=== PATIENT | female | born 1990 | race Caucasian/White ===

== ENCOUNTER → 2020-04-01 14:50 | Outpatient (BNVA) | payer SELFPAY | PROVIDERS: Visit Provider Nurse Practitioner | DX: S59.901A Unspecified injury of right elbow, initial encounter (principal); X58.XXXA Exposure to other specified factors, initial encounter | CPT/HCPCS: 73080 ==

== ENCOUNTER 2020-11-12 05:45 | Emergency (ER) | payer SELFPAY ==
[2020-11-12 05:51] VITALS: BP 145/78; PULSE 98; RESP 15; TEMP 37.1; O2SAT 100; BMI 27.4
--- NOTE | 2020-11-12 05:57 | ED_ITS ---
HPI - Abdominal Pain General: Chief Complaint: Abdominal Pain Stated Complaint: N/V for 24 hrs. Time Seen by Provider: 11/12/20 05:56 History of Present Illness: HPI narrative: 30-year-old female presents emergency room complaint of abdominal pain for the last 24 hours. She has nausea vomiting and diarrhea. Patient also reports some shortness of breath and cough. She states over the last 24 hours she has not really been able to eat or drink much. She had this once previously was seen in the emergency room, but no significant finding was made. She had not had any episodes since, she reports this was several years ago. She denies any hematochezia melena hematemesis coffee-ground emesis. She is not had any dysuria urgency or frequency. Vomiting is been mostly bilious. MD elicited complaint: abdominal pain Onset (ago): day(s) (1) Pain Consistency: constant Location: Diffuse and Epigastric Quality: cramping Exacerbating factors: eating Relieving factors: nothing Associated Symptoms: Reports anorexia, belching, bloating, GI cramping, nausea, poor appetite and vomiting; Denies change in bowel habits, change in stool character, chills, coffee ground emesis, constipation, diarrhea, dyspepsia, dysuria, excessive flatus, fever(s), heartburn, hematochezia, hematuria, hematemesis, fecal incontinence, loose stools, melena and syncope Related Data: Date of Last Menstrual Period: 11/10/20 Review of Systems Const: Denies: fever(s) or chills ENMT: Denies: throat pain, ear or mastoid pain, nasal discharge or nasal congestion Card: Denies: syncope Resp: Denies: dyspnea, productive cough or non-productive cough GI: Reports: nausea, vomiting, bloating, GI cramping and belching; Denies: hematemesis, coffee ground emesis, heartburn, diarrhea, constipation, excessive flatus, fecal incontinence, change in bowel habits, change in stool character, hematochezia or melena : Denies: dysuria or hematuria Skin/Breast: Denies: rash or pruritus PFS ED PFSH: Social History Smoking and tobacco status: current every day smoker Alcohol intake: current Female Reproductive History: Date of last menstrual period: 11/10/20 Physical Exam Const: COMMON NORMALS: no acute distress GENERAL APPEARANCE: cooperative and comfortable ORIENTATION/CONSCIOUSNESS: Yes awake, Yes oriented to person, Yes oriented to place and Yes oriented to time HENMT: COMMON NORMALS: normocephalic, atraumatic and hearing grossly normal bilaterally HEAD & SCALP: normocephalic and atraumatic Neck/C-Spine: COMMON NORMALS: no JVD Lymph: LYMPHATIC: no lymphadenopathy noted and no lymphedema noted Resp: COMMON NORMALS: normal respiratory effort, No retractions, No use of accessory muscles and clear to auscultation bilaterally AUSCULTATION: clear to auscultation bilaterally Cardio: COMMON NORMALS: no JVD, regular rate, regular rhythm and No murmurs present (Cardio) RATE: regular rate RHYTHM: regular rhythm GI: COMMON NORMALS: Soft to palpation and No hepatosplenomegaly present AUSCULTATION: Yes normoactive bowel sounds PALPATION: Yes Soft to palpation, No Tenderness to palpation present (GI), No Guarding due to palpation present (GI) and Yes No hepatosplenomegaly present Extremity: COMMON NORMALS: normal to inspection, capillary refill normal, no clubbing, cyanosis or edema, no calf tenderness and no pedal edema Neuro: SENSORIUM/ORIENTATION: Yes oriented to person, Yes oriented to place and Yes oriented to time Skin: COMMON NORMALS: no rashes or lesions noted GENERAL SKIN EXAM: no rashes or lesions noted Course Vital Signs: Vital signs: Vital Signs Temperature 98.8 F 11/12/20 05:51 Pulse Rate 73 11/12/20 07:33 Respiratory Rate 16 11/12/20 07:33 Blood Pressure 115/48 11/12/20 07:33 Pulse Oximetry 99 11/12/20 07:33 MDM - Abdominal Pain MDM Narrative: Medical decision making narrative: Have her start on over-the- counter Pepcid. We will also give her hydrocodone and Zofran. We will set her up to get a HIDA scan and to see general surgery. Turn if has further problems. Lab Data: Labs: Lab Results 11/12/20 11/12/20 11/12/20 Range/Units 06:20 06:20 06:20 WBC 14.2 H (4.0-10.0) 10^3/ uL RBC 5.03 (4.1-5.3) 10^6/u L Hgb 15.0 (11.5-15.3) g/dL Hct 44.8 (37.0-47.0) % MCV 89.1 (81-99) fL MCH 29.8 (28.0-34.0) pg MCHC 33.5 (30.0-36.0) g/dL RDW 13.4 (12.1-15.1) % Plt Count 384 (130-400) 10^3/c mm MPV 10.6 H (7.4-10.4) fL Neut % (Auto) 84.0 % Lymph % (Auto) 11.0 % [place] % (Auto) 4.6 % Eos % (Auto) 0.0 % Baso % (Auto) 0.1 % Neut # (Auto) 11.89 H (1.8-7.7) 10^3/u L Lymph # (Auto) 1.6 (0.8-4.8) 10^3/u L [place] # (Auto) 0.7 (0.2-0.9) 10^3/u L Eos # (Auto) 0.0 (0.0-0.8) 10^3/u L Baso # (Auto) 0.0 (0.0-0.1) 10^3/u L Nucleated RBC % (a uto) 0 % Nucleated RBCs # 0.0 /100WBC Sodium 138 (136-145) mmol/L Potassium 3.7 (3.5-5.1) mmol/L Chloride 100 (98-107) mmol/L Carbon Dioxide 23 (22-29) mmol/L Anion Gap 18.7 (5-19) BUN 26 H (6-20) mg/dL Creatinine 0.9 (0.5-0.9) mg/dL GFR Calculation 74.0 L (90-130) mL/min Glucose 135 H (65-115) mg/dL Calculated Osmolal ity 293 (285-295) mOsm/k g Calcium 10.0 (8.5-10.5) mg/dL Total Bilirubin 0.8 (0.15-1.2) mg/dL AST 17 (0-32) U/L ALT 18 (0-33) U/L Alkaline Phosphata se 69 (35-105) IU/L Total Protein 8.3 (6.6-8.7) g/dL Albumin 5.1 (3.5-5.2) g/dL Globulin 3.2 (1.3-4.6) g/dL Lipase 14 (13-60) U/L HCG, Qual Negative (Negative) Urine Color (Yellow) Urine Appearance (CLEAR) Urine pH (5-7) Ur Specific Gravit y (1.005-1.030) Urine Protein (Negative) Urine Glucose (UA) (Normal) Urine Ketones (Negative) Urine Blood (Negative) Urine Nitrate (Negative) Urine Bilirubin (Negative) Urine Urobilinogen (Negative) mg/dL Ur Leukocyte [place] ase (Negative) Urine RBC (0-2) /hpf Urine WBC (0-5) /hpf Ur Squamous Epith Cells (0-5) /hpf Amorphous Sediment /hpf Urine Bacteria (NONE) /hpf Hyaline Casts /lpf Urine Mucus /hpf 05/11/ Range/Units 06:20 WBC (4.0-10.0) 10^3/ uL RBC (4.1-5.3) 10^6/u L Hgb (11.5-15.3) g/dL Hct (37.0-47.0) % MCV (81-99) fL MCH (28.0-34.0) pg MCHC (30.0-36.0) g/dL RDW (12.1-15.1) % Plt Count (130-400) 10^3/c mm MPV (7.4-10.4) fL Neut % (Auto) % Lymph % (Auto) % [place] % (Auto) % Eos % (Auto) % Baso % (Auto) % Neut # (Auto) (1.8-7.7) 10^3/u L Lymph # (Auto) (0.8-4.8) 10^3/u L [place] # (Auto) (0.2-0.9) 10^3/u L Eos # (Auto) (0.0-0.8) 10^3/u L Baso # (Auto) (0.0-0.1) 10^3/u L Nucleated RBC % (a uto) % Nucleated RBCs # /100WBC Sodium (136-145) mmol/L Potassium (3.5-5.1) mmol/L Chloride (98-107) mmol/L Carbon Dioxide (22-29) mmol/L Anion Gap (5-19) BUN (6-20) mg/dL Creatinine (0.5-0.9) mg/dL GFR Calculation (90-130) mL/min Glucose (65-115) mg/dL Calculated Osmolal ity (285-295) mOsm/k g Calcium (8.5-10.5) mg/dL Total Bilirubin (0.15-1.2) mg/dL AST (0-32) U/L ALT (0-33) U/L Alkaline Phosphata se (35-105) IU/L Total Protein (6.6-8.7) g/dL Albumin (3.5-5.2) g/dL Globulin (1.3-4.6) g/dL Lipase (13-60) U/L HCG, Qual (Negative) Urine Color Yellow (Yellow) Urine Appearance Clear (CLEAR) Urine pH 5 (5-7) Ur Specific Gravit y 1.025 (1.005-1.030) Urine Protein 2+ H (Negative) Urine Glucose (UA) Norm (Normal) Urine Ketones 1+ H (Negative) Urine Blood 2+ H (Negative) Urine Nitrate Negative (Negative) Urine Bilirubin 1+ H (Negative) Urine Urobilinogen 1 H (Negative) mg/dL Ur Leukocyte [place] ase Trace H (Negative) Urine RBC 0-4 H (0-2) /hpf Urine WBC 10-15 H (0-5) /hpf Ur Squamous Epith Cells 5-10 H (0-5) /hpf Amorphous Sediment 1+ /hpf Urine Bacteria 1+ H (NONE) /hpf Hyaline Casts 0-4 H /lpf Urine Mucus 3+ /hpf Discharge Plan Discharge Patient Disposition: Home Clinical Impression: Dyspepsia, Biliary colic Condition: Stable Prescriptions: New hydrocodone-acetaminophen 5-325 mg tablet 1 tab PO Q6H PRN (Reason: pain) Qty: 20 RF: 0 Zofran 4 mg tablet 4 mg PO Q6H PRN (Reason: nausea and vomiting) Qty: 15 RF: 0 No Action Compazine 10 mg tablet 10 mg PO Q6H PRN (Reason: nausea and vomiting) Qty: 14 RF: 0 Discharge Orders: Discharge ED (Routine); Ordered 11/12/20 Ordered By: Nathan Cotton Discharge Diet: Clear Liquid Discharge Activity: Increase activity as tolerated Patient Instructions: Abdominal Pain (ED), Opioid Safety Activity Restrictions/Additional Instructions: Liquid diet for 24 to 48 hours. Is as tolerated. Case management will call to set you up for a HIDA scan and referral to general surgery. Coding Level of Care Code ED Machine Oiler for German Fwd Exam Comprehensive
--- NOTE | 2020-11-12 06:05 | XRR_ITS ---
PROCEDURE INFORMATION: Exam: XR Chest Exam date and time: 11/12/2020 6:15 AM Age: 30 years old Clinical indication: Other: No chest complaints; Additional info: Dyspnea/cough TECHNIQUE: Imaging protocol: XR of the chest. Views: 1 view. COMPARISON: CR Chest 1 [place] [id number] 06/08/2017 12:31 PM FINDINGS: Lungs: Calcified granuloma right mid lung Lungs are well aerated without a focal area of consolidation. Pleural spaces: Unremarkable. No pleural effusion. No pneumothorax. Heart/Mediastinum: Unremarkable. No cardiomegaly. Bones/joints: Unremarkable. XR/XR chest 1V portable [id number] IMPRESSION: Lungs are well aerated without a focal area of consolidation.
--- NOTE | 2020-11-12 06:05 | CTR_ITS ---
PROCEDURE INFORMATION: Exam: CT Abdomen And Pelvis With Contrast Exam date and time: 11/12/2020 7:00 AM Age: 30 years old Clinical indication: Abdominal pain; Additional info: Abd pain TECHNIQUE: Imaging protocol: Computed tomography of the abdomen and pelvis with contrast. Radiation optimization: All CT scans at this facility use at least one of these dose optimization techniques: automated exposure control; mA and/or kV adjustment per patient size (includes targeted exams where dose is matched to clinical indication); or iterative reconstruction. Contrast material: OMNI 300; Contrast volume: 95 ml; Contrast route: INTRAVENOUS (IV); COMPARISON: CT abdomen pelvis w con* [id number] 06/07/2017 12:46 AM RADIATION DOSE METRICS: Total DLP (mGy-cm): 1205.96 FINDINGS: Liver: Normal. No mass. Gallbladder and bile ducts: Normal. No calcified stones. No ductal dilation. Pancreas: Normal. No ductal dilation. Spleen: Normal. No splenomegaly. Adrenal glands: Normal. No mass. Kidneys and ureters: Symmetric enhancement of the kidneys. There is a subcentimeter hypodense lesion in the left mid kidney, which is too small to characterize. No hydronephrosis or nephrolithiasis. Stomach and bowel: Unremarkable. No obstruction. No mucosal thickening. Appendix: No evidence of appendicitis. Intraperitoneal space: Unremarkable. No free air. No significant fluid collection. Vasculature: Unremarkable. No abdominal aortic aneurysm. Lymph nodes: Unremarkable. No enlarged lymph nodes. Urinary bladder: Unremarkable as visualized. Reproductive: Unremarkable as visualized. Bones/joints: Tiny unchanged sclerotic lesions are again seen in the hips bilaterally, likely representing bone islands. No acute fracture. Soft tissues: Unremarkable. CT/CT abdomen pelvis w con* [id number] IMPRESSION: No acute intra-abdominal or intrapelvic pathology. COMMENTS: Consistent with the [employer]'s Incidental Findings Committee white paper (J Am Fredy Radiol 2018): Any incidental renal lesion less than 1 cm or classified as too small to characterize, or any incidental cystic renal lesion characterized as simple-appearing, is likely benign. No follow-up imaging is recommended for these lesions per consensus recommendations based on imaging criteria. Radiation Dose CTDIVOL = (mGy): DLP = 1205.96 (mGy-cm)
[2020-11-12 06:17] VITALS: BP 145/78; PULSE 67; RESP 21; O2SAT 100
[2020-11-12] MEDS: sodium chloride 0.9% 1,000 ML 999 ML IV ×2 (06:19→06:52)
[2020-11-12] MEDS: morphine 4 mg/mL SDV 1 mL IVP (06:19)
[2020-11-12] MEDS: ondansetron 2 mg/ML SDV 2 mL 4 MG IVP (06:19)
[2020-11-12 06:27] LABS: Basophils % 0.1 %; Hematocrit 44.8 % (37.0-47.0); Lymphocytes # 1.6 10^3/uL (0.8-4.8); Mean Corpuscular HGB Conc 33.5 g/dL (30.0-36.0); Mean Corpuscular Hemoglobin 29.8 pg (28.0-34.0); Mean Corpuscular Volume 89.1 fL (81-99); Mean Platelet Volume 10.6 fL (7.4-10.4); Monocytes # 0.7 10^3/uL (0.2-0.9); Monocytes % 4.6 %; Neutrophils # 11.89 10^3/uL (1.8-7.7); Nucleated Red Blood Cells % 0 %; Platelet Count 384 10^3/cmm (130-400); Red Blood Count 5.03 10^6/uL (4.1-5.3); Red Cell Distribution Width 13.4 % (12.1-15.1); White Blood Count 14.2 10^3/uL (4.0-10.0)
[2020-11-12 06:31] LABS: Add Urine Microscopic? YES; Bilirubin Urine 1+ (Negative); Blood Urine 2+ (Negative); Glucose Urine UA Norm (Normal); Ketones Urine 1+ (Negative); Leukocyte Esterase Urine Trace (Negative); Nitrate Urine Negative (Negative); Protein Urine 2+ (Negative); Specific Gravity, Urine 1.025 (1.005-1.030); Urine Appearance Clear (CLEAR); Urine Color Yellow (Yellow); Urobilinogen Urine 1 mg/dL (Negative); pH Urine 5 (5-7)
[2020-11-12 06:39] LABS: RBC Urine 0-4 /hpf (0-2)
[2020-11-12 06:40] LABS: Amorphous Sediment Urine 1+ /hpf; Bacteria Urine 1+ /hpf; Hyaline Casts Urine 0-4 /lpf; Mucus Urine 3+ /hpf
[2020-11-12 06:41] LABS: Add Urine Culture? No
[2020-11-12 06:42] LABS: HCG, Serum Qual Negative (Negative)
[2020-11-12 06:46] LABS: Alanine Aminotransferase 18 U/L (0-33); Albumin Level 5.1 g/dL (3.5-5.2); Alkaline Phosphatase 69 IU/L (35-105); Anion Gap 18.7 (5-19); Aspartate Amino Transferase 17 U/L (0-32); Blood Urea Nitrogen 26 mg/dL (6-20); Carbon Dioxide 23 mmol/L (22-29); Chloride 100 mmol/L (98-107); Globulin 3.2 g/dL (1.3-4.6); Glucose 135 mg/dL (65-115); Lipase 14 U/L (13-60); Osmolality Calculated 293 mOsm/kg (285-295); Potassium 3.7 mmol/L (3.5-5.1); Sodium 138 mmol/L (136-145); Total Bilirubin 0.8 mg/dL (0.15-1.2); Total Protein 8.3 g/dL (6.6-8.7)
[2020-11-12] MEDS: iohexol 300 mg/mL 100 mL Btl IV (07:11)
[2020-11-12] MEDS: promethazine 25 mg/mL SDV 1 mL IM (07:17)
[2020-11-12 07:33] VITALS: BP 115/48; PULSE 73; RESP 16; O2SAT 99
--- NOTE | 2020-11-12 08:31 | US_ITS ---
WS: [id number] RIGHT UPPER QUADRANT ULTRASOUND HISTORY: abd pain COMPARISON: 06/08/2017 Liver: 16.6 cm in length. Normal size liver. No bile duct dilatation or mass. Gallbladder: Normally distended gallbladder with no stones or wall thickening. CBD: 0.4 cm Pancreas: Normal size and echogenicity. Right kidney: 12.0 cm in length. Normal size and echogenicity. No hydronephrosis or mass. Aorta and IVC: Unremarkable abdominal aorta and IVC. No ascites. US/US gall bladder [id number] IMPRESSION: Normal RIGHT upper quadrant ultrasound.
--- NOTE | 2020-11-13 10:22 | DCPLANNER ---
Addendum entered by Ara Blackburn 11/21/20 09:33: technology adoption manager contacted general surgery to confirm if an appointment had been scheduled for patient. technology adoption manager was told that centralized scheduling has tried to contact patient, and has not been able to reach patient to schedule an appointment. technology adoption manager called [phone], unable to speak with patient at this time, a voicemail was left for patient to return outsole caser phone call. Original Note: technology adoption manager had message to schedule a follow up appointment for patient with general surgery, and to order an outpatient HIDA scan. technology adoption manager faxed signed order for HIDA scan to centralized scheduling. technology adoption manager will call for appointment information. technology adoption manager emailed patients information to both Lali and Mayra at [facility] General surgery. Patients information will be printed and reviewed. Clinic will call patient with appointment information.
--- NOTE | 2020-11-19 08:12 | DCPLANNER ---
Patient has an out patient HIDA scan scheduled for Sunday, November 22, 2020 at 10:00. manager operations research emailed patients information to Jeff at [facility] General surgery, to let the clinic know when the patient had the appointment for the HIDA scan scheduled.
--- NOTE | 2020-11-22 08:46 | DCPLANNER ---
Patient had a HIDA scan scheduled for 11.22.20 at 10:00 - patient did attend appointment. [facility] has tried to contact patient about scheduling a follow up appointment. Clinic has been unable to schedule an appointment at this time due to not being able to reach patient. order manager has tried multiple times to reach patient about scheduling an appointment and has been unable to reach patient. order manager called phone number [phone], a voicemail was left for patient to return sample case porter phone call. order manager called phone number [phone], patients mother, person that answered stated that she was not who case consultant asked for. order manager called phone number [phone], patients sister, unable to speak with sister at this time, a voicemail was left for the sister to give patient a message to call case consultant.
== END 2020-11-12 10:55 | disposition home or self-care (01) ==
PROVIDERS: Emergency Provider Family Medicine
DX: R10.13 Epigastric pain (principal); K80.50 Calculus of bile duct without cholangitis or cholecystitis without obstruction; F17.210 Nicotine dependence, cigarettes, uncomplicated
CPT/HCPCS: 71045; 74177; 76705; 80053; 81001; 83690; 84703; 85025; 96360; 96361; 96372; 99284; J2270; J2405; J2550; J7030; Q9967

== ENCOUNTER 2020-11-13 07:06 | Emergency (ER) | payer SELFPAY ==
[2020-11-13 07:13] VITALS: BP 128/77; PULSE 67; RESP 20; TEMP 36.8; O2SAT 100; BMI 27.4
--- NOTE | 2020-11-13 07:29 | ED_ITS ---
HPI - Abdominal Pain General: Chief Complaint: Abdominal Pain Stated Complaint: ab pain Time Seen by Provider: 11/13/20 07:13 History of Present Illness: HPI narrative: 30-year-old female returns to the ER with abdominal pain, nausea and vomiting. She was seen yesterday with the same complaints. This had started the previous day. She states that since she left she has had a bunch of nausea and vomiting. She has not had a fever chills. No diarrhea. She points to her left lower quadrant states that is where it has been hurting. Patient did have a unremarkable CT, chest x-ray and right upper quadrant ultrasound. She says that she took the Zofran which helped for a little while but then the nausea and vomiting came back. She states she ate Jell-O and some chicken noodle soup but was not able to keep it down. She denies any hematochezia melena hematemesis coffee-ground emesis. She has not had any dysuria urgency or frequency. MD elicited complaint: abdominal pain Onset (ago): day(s) Pain Consistency: constant Location: LLQ Severity: similar to previous episodes (Similar to yesterday's pain.) Quality: cramping and sharp Radiation: none Migration to: no migration Exacerbating factors: eating and vomiting Relieving factors: nothing Associated Symptoms: Reports nausea and vomiting; Denies chills, coffee ground emesis, constipation, diarrhea, dysuria, fever(s), heartburn, hematuria, hematemesis and loose stools Treatments prior to arrival: other (Zofran only helped a little bit with the nausea.) Related Data: Date of Last Menstrual Period: 11/10/20 Review of Systems Narrative: 30-year-old female returns with nausea, vomiting and abdominal pain. Const: Denies: fever(s), chills or diaphoresis ENMT: Reports: dry mouth; Denies: throat pain or nasal discharge Card: Denies: chest pain Resp: Denies: dyspnea, productive cough, non-productive cough, wheezing, pain on inspiration or hemoptysis GI: Reports: abdominal pain, nausea and vomiting; Denies: hematemesis, coffee ground emesis, heartburn, diarrhea or constipation : Denies: flank pain, difficulty voiding, dysuria or hematuria PFSH ED PFSH: Social History (Reviewed 11/12/20 @ 06:09 by CHRISTY Francois Smoking and tobacco status: current every day smoker Alcohol intake: current Female Reproductive History: Date of last menstrual period: 11/10/20 Physical Exam Const: COMMON NORMALS: average body habitus, patient oriented x3, no limitations, healthy appearing, alert and well nourished EXAM LIMITATIONS: no altered mental status GENERAL APPEARANCE: cooperative, well kempt, well developed and ill appearing NUTRITIONAL APPEARANCE: not cachectic and not obese ORIENTATION/CONSCIOUSNESS: not oriented to person, not oriented to place and not oriented to time HENMT: COMMON NORMALS: normocephalic; oral mucous membranes not moist HEAD & SCALP: normocephalic OTHER: Dry oral mucosa Eye: COMMON NORMALS: Equal, round and reactive pupils present, EOMs intact bilaterally, conjunctivae normal and no scleral icterus GENERAL EYE: appearance normal, both eyes and all related structures CONJUNCTIVA: Yes conjunctivae normal PUPIL: Yes Equal, round and reactive pupils present Neck/C-Spine: COMMON NORMALS: full ROM, no lymphadenopathy, supple, no meningeal signs and no JVD Resp: COMMON NORMALS: normal respiratory effort, No retractions, No use of acc essory muscles and clear to auscultation bilaterally EFFORT & INSPECTION: Yes able to speak in complete sentences, Yes symmetric chest movement and No respiratory distress AUSCULTATION: clear to auscultation bilaterally Cardio: COMMON NORMALS: no JVD, regular rate, regular rhythm, No gallops present (Cardio), No clicks present (Cardio), No murmurs present (Cardio) and No rub (Cardio) RATE: regular rate RHYTHM: regular rhythm GI: COMMON NORMALS: Soft to palpation, No hepatosplenomegaly present and no masses; negative for non-tender (Moderate diffuse tenderness noted, slightly worse than left lower quadrant.) INSPECTION: No abdominal distension AUSCULTATION: Yes normoactive bowel sounds PALPATION: Yes Soft to palpation, Yes No hepatosplenomegaly present and No Rebound tenderness present : COMMON NORMALS: Yes no CVA tenderness BLADDER/KIDNEY EXAM: Yes no CVA tenderness Back/Pelvis: COMMON NORMALS: no CVA tenderness Extremity: COMMON NORMALS: normal to inspection, full ROM, no clubbing, cyanosis or edema and no calf tenderness Neuro: COMMON NORMALS: patient oriented x3, moves all extremities and no focal motor deficits SENSORIUM/ORIENTATION: Yes alert, No oriented to person, No oriented to place and No oriented to time MENINGEAL SIGNS: Yes no meningeal signs Psych: APPEARANCE: Yes well kempt Course Reevaluation(s): Reevaluation #1: Upon entering the room the patient was resting comfortably. She stated she was feeling better. She was not nauseous or vomiting. Time: 08:20 Vital Signs: Vital signs: Vital Signs Temperature 98.2 F 11/13/20 07:13 Pulse Rate 78 11/13/20 11:55 Respiratory Rate 18 11/13/20 11:55 Blood Pressure 122/64 11/13/20 11:55 Pulse Oximetry 99 11/13/20 11:55 MDM - Abdominal Pain Lab Data: Labs: Lab Results 11/13/20 11/13/20 11/13/20 Range/Units 07:35 07:35 07:51 WBC 11.6 H (4.0-10.0) 10^3/ uL RBC 4.49 (4.1-5.3) 10^6/u L Hgb 13.6 (11.5-15.3) g/dL Hct 41.0 (37.0-47.0) % MCV 91.3 (81-99) fL MCH 30.3 (28.0-34.0) pg MCHC 33.2 (30.0-36.0) g/dL RDW 13.3 (12.1-15.1) % Plt Count 288 (130-400) 10^3/c mm MPV 10.5 H (7.4-10.4) fL Neut % (Auto) 79.8 % Lymph % (Auto) 15.1 % [place] % (Auto) 4.4 % Eos % (Auto) 0.0 % Baso % (Auto) 0.3 % Neut # (Auto) 9.27 H (1.8-7.7) 10^3/u L Lymph # (Auto) 1.8 (0.8-4.8) 10^3/u L [place] # (Auto) 0.5 (0.2-0.9) 10^3/u L Eos # (Auto) 0.0 (0.0-0.8) 10^3/u L Baso # (Auto) 0.0 (0.0-0.1) 10^3/u L Nucleated RBC % (a uto) 0 % Nucleated RBCs # 0.0 /100WBC Sodium 139 (136-145) mmol/L Potassium 3.7 (3.5-5.1) mmol/L Chloride 102 (98-107) mmol/L Carbon Dioxide 22 (22-29) mmol/L Anion Gap 18.7 (5-19) BUN 14 (6-20) mg/dL Creatinine 0.6 (0.5-0.9) mg/dL GFR Calculation 118.2 (90-130) mL/min Glucose 108 (65-115) mg/dL Calculated Osmolal ity 289 (285-295) mOsm/k g Calcium 9.0 (8.5-10.5) mg/dL Magnesium 2.1 (1.7-2.3) mg/dL Total Bilirubin 0.9 (0.15-1.2) mg/dL AST 18 (0-32) U/L ALT 21 (0-33) U/L Alkaline Phosphata se 65 (35-105) IU/L Total Protein 7.5 (6.6-8.7) g/dL Albumin 4.8 (3.5-5.2) g/dL Globulin 2.7 (1.3-4.6) g/dL Lipase 14 (13-60) U/L Urine Color Yellow (Yellow) Urine Appearance Clear (CLEAR) Urine pH 6.5 (5-7) Ur Specific Gravit y 1.020 (1.005-1.030) Urine Protein Trace (Negative) Urine Glucose (UA) Norm (Normal) Urine Ketones 2+ H (Negative) Urine Blood 2+ H (Negative) Urine Nitrate Negative (Negative) Urine Bilirubin Neg (Negative) Urine Urobilinogen 1 H (Negative) mg/dL Ur Leukocyte [place] ase Negative (Negative) Urine RBC 0-4 H (0-2) /hpf Urine WBC None (0-5) /hpf Ur Squamous Epith Cells 0-4 H (0-5) /hpf Amorphous Sediment Not Reportable Urine Bacteria 1+ H (NONE) /hpf Urine Mucus 1+ /hpf Discharge Plan Discharge Patient Disposition: Home Clinical Impression: Biliary colic, Dyspepsia Nausea & vomiting Qualifiers: Vomiting type: bilious vomiting Qualified Code(s): R11.14 - Bilious vomiting Abdominal pain Qualifiers: Abdominal location: unspecified location Qualified Code(s): R10.9 - Unspecified abdominal pain Condition: Stable Prescriptions: New Compazine 10 mg tablet 10 mg PO Q6H PRN (Reason: nausea and vomiting) Qty: 14 RF: 0 No Action hydrocodone-acetaminophen 5-325 mg tablet 1 tab PO Q6H PRN (Reason: pain) Qty: 20 RF: 0 Zofran 4 mg tablet 4 mg PO Q6H PRN (Reason: nausea and vomiting) Qty: 15 RF: 0 Discharge Orders: Discharge ED (Routine); Ordered 11/13/20 Ordered By: Miles Driscoll Discharge Diet: Clear Liquid Discharge Activity: Limit activity as instructed Patient Instructions: Abdominal Pain (ED), Opioid Safety Activity Restrictions/Additional Instructions: Increase noncaffeine/nonalcoholic fluids. Please keep a food diary. Follow-up for the HIDA/gallbladder test then with the surgeon once scheduled. Coding Level of Care Code ED Slime Plant Operator for German Fwd Exam Comprehensive
[2020-11-13] MEDS: sodium chloride 0.9% 1,000 ML 999 ML IV (07:45)
[2020-11-13] MEDS: metoclopramide 5 mg/mL SDV 2 mL 10 MG IVP ×2 (07:47→09:26)
[2020-11-13 07:52] LABS: Basophils % 0.3 %; Hemoglobin 13.6 g/dL (11.5-15.3); Lymphocytes # 1.8 10^3/uL (0.8-4.8); Lymphocytes % 15.1 %; Mean Corpuscular HGB Conc 33.2 g/dL (30.0-36.0); Mean Corpuscular Hemoglobin 30.3 pg (28.0-34.0); Mean Corpuscular Volume 91.3 fL (81-99); Mean Platelet Volume 10.5 fL (7.4-10.4); Monocytes # 0.5 10^3/uL (0.2-0.9); Monocytes % 4.4 %; Neutrophils # 9.27 10^3/uL (1.8-7.7); Neutrophils % 79.8 %; Nucleated Red Blood Cells % 0 %; Platelet Count 288 10^3/cmm (130-400); Red Blood Count 4.49 10^6/uL (4.1-5.3); Red Cell Distribution Width 13.3 % (12.1-15.1); White Blood Count 11.6 10^3/uL (4.0-10.0)
[2020-11-13 08:16] LABS: Alanine Aminotransferase 21 U/L (0-33); Albumin Level 4.8 g/dL (3.5-5.2); Alkaline Phosphatase 65 IU/L (35-105); Anion Gap 18.7 (5-19); Aspartate Amino Transferase 18 U/L (0-32); Blood Urea Nitrogen 14 mg/dL (6-20); Carbon Dioxide 22 mmol/L (22-29); Chloride 102 mmol/L (98-107); Globulin 2.7 g/dL (1.3-4.6); Glomerular Filtration Rate 118.2 mL/min (90-130); Glucose 108 mg/dL (65-115); Lipase 14 U/L (13-60); Magnesium 2.1 mg/dL (1.7-2.3); Osmolality Calculated 289 mOsm/kg (285-295); Potassium 3.7 mmol/L (3.5-5.1); Sodium 139 mmol/L (136-145); Total Bilirubin 0.9 mg/dL (0.15-1.2); Total Protein 7.5 g/dL (6.6-8.7)
[2020-11-13 08:31] LABS: Add Urine Microscopic? YES; Bilirubin Urine Neg (Negative); Blood Urine 2+ (Negative); Glucose Urine UA Norm (Normal); Ketones Urine 2+ (Negative); Leukocyte Esterase Urine Negative (Negative); Nitrate Urine Negative (Negative); Protein Urine Trace (Negative); Urine Appearance Clear (CLEAR); Urine Color Yellow (Yellow); Urobilinogen Urine 1 mg/dL (Negative); pH Urine 6.5 (5-7)
[2020-11-13 08:48] LABS: RBC Urine 0-4 /hpf (0-2)
[2020-11-13 08:49] LABS: Add Urine Culture? No; Bacteria Urine 1+ /hpf; Mucus Urine 1+ /hpf; Squamous Epithelial Cell Urine 0-4 /hpf (0-5)
[2020-11-13 09:25] VITALS: RESP 18
[2020-11-13] MEDS: morphine 4 mg/mL SDV 1 mL IVP (09:25)
[2020-11-13 11:55] VITALS: BP 122/64; PULSE 78; RESP 18; O2SAT 99
== END 2020-11-13 10:15 | disposition home or self-care (01) ==
PROVIDERS: Emergency Provider Emergency Medicine
DX: R10.13 Epigastric pain (principal); R11.14 Bilious vomiting; R10.9 Unspecified abdominal pain; K80.50 Calculus of bile duct without cholangitis or cholecystitis without obstruction; F17.210 Nicotine dependence, cigarettes, uncomplicated
CPT/HCPCS: 80053; 81001; 83690; 83735; 85025; 96361; 96374; 96375; 96376; 99284; J2270; J2765; J7030

== ENCOUNTER 2020-11-22 08:37 | Outpatient (CLI) | payer SELFPAY ==
--- NOTE | 2020-11-22 08:42 | NM_ITS ---
WS: [id number] NUCLEAR MEDICINE HIDA SCAN CLINICAL INFORMATION: ABD PAIN TECHNIQUE: Following intravenous administration of 8.3 mCi of technetium 99m mebrofenin, images of th e abdomen were obtained over the course of 60 minutes. Next, gallbladder ejection fraction was determ ined by obtaining preprandial and one-hour postprandial images of the gallbladder following oral florencio stion of Ensure. COMPARISON: November 12, 2020 FINDINGS: Normal hepatic uptake at 5 minutes. Gallbladder visualized at 15 minutes. No evidence of acute cholec ystitis. Normal common bile duct and small bowel activity. Normal hepatic excretion. Gallbladder ejection fraction 72% within normal limits. No evidence of washroom attendant vimal cholecystitis. NM/NM hepatobiliary w phar* [id number] IMPRESSION: 1. No evidence of acute or chronic cholecystitis. 2. Gallbladder ejection fraction 72% within normal limits.
[2020-11-22 09:22] LABS: HCG Qualitative Urine. Negative (Negative)
== END 2020-11-22 08:38 | disposition home or self-care (01) ==
LOC: RAD 08:41
PROVIDERS: Visit Provider Emergency Medicine
DX: R10.9 Unspecified abdominal pain (principal)
CPT/HCPCS: 78227; 81025; A9537

== ENCOUNTER 2021-03-11 20:01 | Emergency (ER) | payer SELFPAY ==
[2021-03-11 20:16] VITALS: BP 171/80; PULSE 58; RESP 22; TEMP 36.7; O2SAT 100; BMI 24.9
[2021-03-11 20:39] LABS: Basophils % 0.1 %; Hematocrit 43.9 % (37.0-47.0); Hemoglobin 14.1 g/dL (11.5-15.3); Lymphocytes # 0.9 10^3/uL (0.8-4.8); Lymphocytes % 6.2 %; Mean Corpuscular HGB Conc 32.1 g/dL (30.0-36.0); Mean Corpuscular Volume 93.4 fl (81-99); Mean Platelet Volume 10.8 fL (7.4-10.4); Monocytes # 0.3 10^3/uL (0.2-0.9); Monocytes % 1.9 %; Neutrophils # 12.83 10^3/uL (1.8-7.7); Neutrophils % 91.4 %; Nucleated Red Blood Cells % 0 %; Platelet Count 311 10^3/cmm (130-400); Red Cell Distribution Width 12.3 % (12.1-15.1)
[2021-03-11 21:19] LABS: Alanine Aminotransferase 14 U/L (0-33); Albumin Level 4.7 g/dL (3.5-5.2); Alkaline Phosphatase 62 IU/L (35-105); Anion Gap 21.4 (5-19); Aspartate Amino Transferase 14 U/L (0-32); Blood Urea Nitrogen 17 mg/dL (6-20); Calcium 9.6 mg/dL (8.5-10.5); Carbon Dioxide 19 mmol/L (22-29); Chloride 106 mmol/L (98-107); Globulin 2.8 g/dL (1.3-4.6); Glomerular Filtration Rate 98.9 mL/min (90-130); Glucose 144 mg/dL (65-115); Lipase 15 U/L (13-60); Osmolality Calculated 298 mOsm/kg (285-295); Potassium 4.4 mmol/L (3.5-5.1); Sodium 142 mmol/L (136-145); Total Bilirubin 0.5 mg/dL (0.15-1.2); Total Protein 7.5 g/dL (6.6-8.7)
[2021-03-11] MEDS: sodium chloride 0.9% 1,000 ML 999 ML IV (22:57)
--- NOTE | 2021-03-11 22:57 | W.ED.NAVMDI ---
HPI - Nausea/Vomiting/Diarrhea General: Chief complaint: Nausea/Vomiting/Diarrhea Stated complaint: Abd Pain\Vomiting Time Seen by Provider: 03/11/21 22:46 Source: patient Limitations: no limitations History of Present Illness: HPI Narrative: 30-year-old female states that since this morning she has had severe nausea vomiting along with lower abdominal pain. States she has vomited like 30 times today. States the pain in her lower abdomen sharp in nature. She denies any worsening improving factors. States she had a similar episode 2 months ago. She denies any fever. States she is currently on her menstruation. Associated nausea: Yes Associated symtoms: Reports nausea; Denies chest pain, dysuria or headache(s) Review of Systems Const: Denies: fever(s), chills, body aches or change in appetite Eyes: Denies: blurry vision or eye discomfort ENMT: Denies: throat pain or dental pain Card: Denies: chest pain Resp: Denies: dyspnea GI: Reports: abdominal pain, nausea and vomiting : Denies: dysuria Musc: Denies: neck pain or back pain Skin/Breast: Denies: rash Neuro: Denies: headache(s) Psych: Denies: depression Jarrod/Lymph: Denies: easy bruising All/Imm: Denies: urticaria PFSH ED PFSH: Social History Smoking and tobacco status: current every day smoker Alcohol intake: current Female Reproductive History: Date of last menstrual period: 03/11/21 Physical Exam Const: COMMON NORMALS: no acute distress, patient oriented x3 and healthy appearing HENMT: COMMON NORMALS: normocephalic and atraumatic HEAD & SCALP: normocephalic and atraumatic Eye: COMMON NORMALS: Equal, round and reactive pupils present and EOMs intact bilaterally PUPIL: Yes Equal, round and reactive pupils present Neck/C-Spine: COMMON NORMALS: full ROM and supple Chest: COMMONS NORMALS: normal inspection of the chest and normal palpation of entire chest wall Resp: COMMON NORMALS: normal respiratory effort, No retractions, No use of accessory muscles and clear to auscultation bilaterally AUSCULTATION: clear to auscultation bilaterally Cardio: COMMON NORMALS: regular rate, regular rhythm and No murmurs present (Cardio) RATE: regular rate RHYTHM: regular rhythm GI: COMMON NORMALS: Normal to inspection, nondistended, normoactive bowel sounds present, Soft to palpation and no masses PALPATION: Yes Soft to palpation and Yes Tenderness to palpation present (GI) (lower abd) Extremity: COMMON NORMALS: normal to inspection and full ROM Neuro: COMMON NORMALS: patient oriented x3, moves all extremities and no focal motor deficits Psych: COMMON NORMALS: mental status grossly normal, Normal thought process present and cooperative THOUGHT PROCESS: Normal thought process present Skin: COMMON NORMALS: no rashes or lesions noted and no wounds GENERAL SKIN EXAM: no rashes or lesions noted Course Vital Signs: Vital signs: Vital Signs Temperature 98.1 F 03/11/21 20:16 Pulse Rate 84 03/12/21 01:53 Respiratory Rate 14 03/12/21 01:53 Blood Pressure 120/57 03/12/21 01:53 Pulse Oximetry 98 03/12/21 01:53 MDM - Nausea/Vomiting/Diarrhea MDM Narrative: Medical decision making narrative: Patient presents here with vomiting likely viral in origin. She feels much improved after Reglan and IV fluids. CT scan showed no acute findings set for colitis. She is nontender here I do not believe she needs any antibiotics. We will place her on Zofran and Reglan for home and she is to follow-up with PCP and return if worsening. She understands and agrees to plan. Lab Data: Labs: Lab Results 03/11/21 03/11/21 03/11/21 Range/Units 20:30 20:30 23:23 WBC 14.0 H (4.0-10.0) 10^3/ uL RBC 4.70 (4.1-5.3) 10^6/u L Hgb 14.1 (11.5-15.3) g/dL Hct 43.9 (37.0-47.0) % MCV 93.4 (81-99) fl MCH 30.0 (28.0-34.0) pg MCHC 32.1 (30.0-36.0) g/dL RDW 12.3 (12.1-15.1) % Plt Count 311 (130-400) 10^3/c mm MPV 10.8 H (7.4-10.4) fL Neut % (Auto) 91.4 % Lymph % (Auto) 6.2 % [place] % (Auto) 1.9 % Eos % (Auto) 0.0 % Baso % (Auto) 0.1 % Neut # (Auto) 12.83 H (1.8-7.7) 10^3/u L Lymph # (Auto) 0.9 (0.8-4.8) 10^3/u L [place] # (Auto) 0.3 (0.2-0.9) 10^3/u L Eos # (Auto) 0.0 (0.0-0.8) 10^3/u L Baso # (Auto) 0.0 (0.0-0.1) 10^3/u L Nucleated RBC % (a uto) 0 % Nucleated RBCs # 0.0 /100WBC Sodium 142 (136-145) mmol/L Potassium 4.4 (3.5-5.1) mmol/L Chloride 106 (98-107) mmol/L Carbon Dioxide 19 L (22-29) mmol/L Anion Gap 21.4 H (5-19) BUN 17 (6-20) mg/dL Creatinine 0.7 (0.5-0.9) mg/dL GFR Calculation 98.9 (90-130) mL/min Glucose 144 H (65-115) mg/dL Calculated Osmolal ity 298 H (285-295) mOsm/k g Calcium 9.6 (8.5-10.5) mg/dL Total Bilirubin 0.5 (0.15-1.2) mg/dL AST 14 (0-32) U/L ALT 14 (0-33) U/L Alkaline Phosphata se 62 (35-105) IU/L Total Protein 7.5 (6.6-8.7) g/dL Albumin 4.7 (3.5-5.2) g/dL Globulin 2.8 (1.3-4.6) g/dL Lipase 15 (13-60) U/L HCG, Qual Negative (Negative) Urine Color (Yellow) Urine Appearance (CLEAR) Urine pH (5-7) Ur Specific Gravit y (1.005-1.030) Urine Protein (Negative) Urine Glucose (UA) (Normal) Urine Ketones (Negative) Urine Blood (Negative) Urine Nitrate (Negative) Urine Bilirubin (Negative) Urine Urobilinogen (Negative) mg/dL Ur Leukocyte [place] ase (Negative) Urine RBC (0-2) /hpf Urine WBC (0-5) /hpf Ur Squamous Epith Cells (0-5) /hpf Amorphous Sediment /hpf Urine Bacteria (NONE) /hpf 03/12/21 Range/Units 00:20 WBC (4.0-10.0) 10^3/ uL RBC (4.1-5.3) 10^6/u L Hgb (11.5-15.3) g/dL Hct (37.0-47.0) % MCV (81-99) fl MCH (28.0-34.0) pg MCHC (30.0-36.0) g/dL RDW (12.1-15.1) % Plt Count (130-400) 10^3/c mm MPV (7.4-10.4) fL Neut % (Auto) % Lymph % (Auto) % [place] % (Auto) % Eos % (Auto) % Baso % (Auto) % Neut # (Auto) (1.8-7.7) 10^3/u L Lymph # (Auto) (0.8-4.8) 10^3/u L [place] # (Auto) (0.2-0.9) 10^3/u L Eos # (Auto) (0.0-0.8) 10^3/u L Baso # (Auto) (0.0-0.1) 10^3/u L Nucleated RBC % (a uto) % Nucleated RBCs # /100WBC Sodium (136-145) mmol/L Potassium (3.5-5.1) mmol/L Chloride (98-107) mmol/L Carbon Dioxide (22-29) mmol/L Anion Gap (5-19) BUN (6-20) mg/dL Creatinine (0.5-0.9) mg/dL GFR Calculation (90-130) mL/min Glucose (65-115) mg/dL Calculated Osmolal ity (285-295) mOsm/k g Calcium (8.5-10.5) mg/dL Total Bilirubin (0.15-1.2) mg/dL AST (0-32) U/L ALT (0-33) U/L Alkaline Phosphata se (35-105) IU/L Total Protein (6.6-8.7) g/dL Albumin (3.5-5.2) g/dL Globulin (1.3-4.6) g/dL Lipase (13-60) U/L HCG, Qual (Negative) Urine Color Dark yellow (Yellow) Urine Appearance Hazy A (CLEAR) Urine pH 5 (5-7) Ur Specific Gravit y 1.020 (1.005-1.030) Urine Protein 1+ H (Negative) Urine Glucose (UA) Norm (Normal) Urine Ketones 2+ H (Negative) Urine Blood 3+ H (Negative) Urine Nitrate Negative (Negative) Urine Bilirubin Neg (Negative) Urine Urobilinogen 1 H (Negative) mg/dL Ur Leukocyte [place] ase Negative (Negative) Urine RBC 0-4 H (0-2) /hpf Urine WBC 0-4 H (0-5) /hpf Ur Squamous Epith Cells 0-4 H (0-5) /hpf Amorphous Sediment 4+ /hpf Urine Bacteria Trace (NONE) /hpf Imaging Data^: CT Abd/Pel: Attestation: I personally reviewed and interpreted this imaging study as follows: Radiologist's impression: [address] [address] [address] Scan Report Signed Patient: Karuna Craig Unit #: [id number] : 1990 Age/Sex: 30 / F ADM Date: 03/11/21 Loc: ER Room/Bed: Attending Dr: Ordering Provider/Ordering MD: León Masters MD Date of Service: 03/11/21 Procedure(s): CT abdomen pelvis w con* [id number] Accession Number(s): [id number] Report Number: [id number] PROCEDURE INFORMATION: Exam: CT Abdomen And Pelvis With Contrast Exam date and time: 03/11/2021 10:56 PM Age: 30 years old Clinical indication: Nausea and vomiting; Abdominal pain; Patient HX: Generalized abd pain with n/v. TECHNIQUE: Imaging protocol: Computed tomography of the abdomen and pelvis with contrast. Radiation optimization: All CT scans at this facility use at least one of these dose optimization techniques: automated exposure control; mA and/or kV adjustment per patient size (includes targeted exams where dose is matched to clinical indication); or iterative reconstruction. Contrast material: OMNI 300; Contrast volume: 95 ml; Contrast route: INTRAVENOUS (IV); COMPARISON: CT abdomen pelvis w con* [id number] 11/12/2020 7:06 AM RADIATION DOSE METRICS: Total DLP (mGy-cm): 1037.71 FINDINGS: Liver: Normal. No mass. Gallbladder and bile ducts: Normal. No calcified stones. No ductal dilation. Pancreas: Normal. No ductal dilation. Spleen: Normal. No splenomegaly. Adrenal glands: Normal. No mass. Kidneys and ureters: Normal. No hydronephrosis. Stomach and bowel: Mild generalized wall thickening and edema predominantly right colon and transverse colon more pronounced than prior imaging. Negative for bowel obstruction. Negative for bowel perforation. No focal bowel wall mass. Appendix: No evidence of appendicitis. Intraperitoneal space: Unremarkable. No free air. No significant fluid collection. Vasculature: Mesenteric vasculature is patent and unremarkable. Lymph nodes: Unremarkable. No enlarged lymph nodes. Urinary bladder: Unremarkable as visualized. Reproductive: Unremarkable as visualized. Bones/joints: Unremarkable. No acute fracture. Soft tissues: Unremarkable. CT/CT abdomen pelvis w con* [id number] IMPRESSION: Nonspecific colitis pattern is suspected Radiation Dose CTDIVOL = (mGy): DLP = 1037.71 (mGy-cm) Dictated By: Rafi Singh Signed By: Rafi Singh Signed Date/Time: 03/12/21117 DD/ 6 Discharge Plan Discharge Patient Disposition: Home Clinical Impression: Vomiting Qualifiers: Vomiting type: unspecified Vomiting Intractability: non-intractable Nausea presence: with nausea Qualified Code(s): R11.2 - Nausea with vomiting, unspecified Condition: Stable Prescriptions: New ondansetron 4 mg tablet,disintegrating 4 mg PO Q6H PRN (Reason: nausea and vomiting) Qty: 14 RF: 0 Reglan 10 mg tablet 10 mg PO Q6H PRN (Reason: nausea and vomiting) Qty: 20 RF: 0 Discharge Orders: Discharge ED (Routine); Ordered 03/12/21 Ordered By: León Masters Discharge Diet: Advance as tolerated Discharge Activity: Resume usual activity Patient Instructions: Acute Nausea and Vomiting (ED) Coding Level of Care Code ED Service Department Manager for g Fwd Exam Comprehensive
[2021-03-11] MEDS: metoclopramide 5 mg/mL SDV 2 mL 10 MG IVP (23:01)
[2021-03-11] MEDS: diphenhydrAMINE 50 mg/mL SDV 1mL IVP (23:01)
[2021-03-11 23:06] VITALS: RESP 24
[2021-03-11] MEDS: morphine 4 mg/mL SDV 1 mL IVP (23:06)
[2021-03-11 23:41] LABS: HCG, Serum Qual Negative (Negative)
[2021-03-12] MEDS: iohexol 300 mg/mL 100 mL Btl IV (00:06)
[2021-03-12] MEDS: sodium chloride 0.9% 1,000 ML 999 ML IV (00:38)
[2021-03-12 00:58] LABS: Add Urine Culture? No; Add Urine Microscopic? YES; Amorphous Sediment Urine 4+ /hpf; Bacteria Urine TRACE /hpf; Bilirubin Urine Neg (Negative); Blood Urine 3+ (Negative); Glucose Urine UA Norm (Normal); Ketones Urine 2+ (Negative); Leukocyte Esterase Urine Negative (Negative); Nitrate Urine Negative (Negative); Protein Urine 1+ (Negative); RBC Urine 0-4 /hpf (0-2); Squamous Epithelial Cell Urine 0-4 /hpf (0-5); Urine Appearance Hazy (CLEAR); Urine Color Dark Yellow (Yellow); Urobilinogen Urine 1 mg/dL (Negative); WBC Urine 0-4 /hpf (0-5); pH Urine 5 (5-7)
[2021-03-12] MEDS: ondansetron 4 MG Tablet PO (01:48)
[2021-03-12 01:53] VITALS: BP 120/57; PULSE 84; RESP 14; O2SAT 98
== END 2021-03-12 01:54 | disposition home or self-care (01) ==
PROVIDERS: Emergency Provider Emergency Medicine
DX: R11.2 Nausea with vomiting, unspecified (principal); F17.210 Nicotine dependence, cigarettes, uncomplicated
CPT/HCPCS: 36415; 74177; 80053; 81001; 83690; 84703; 85025; 96361; 96374; 96375; 99284; J1200; J2270; J2765; J7030; Q0162; Q9967

== ENCOUNTER 2021-03-12 12:26 | Emergency (ER) | payer SELFPAY ==
[2021-03-12] VITALS (7 sets, daily range): BP systolic 113–182; BP diastolic 66–98; PULSE 55–92; RESP 16–23; TEMP 36.9; O2SAT 97–100; BMI 24.9
--- NOTE | 2021-03-12 13:34 | ED_ITS ---
HPI - Abdominal Pain General: Chief Complaint: Nausea/Vomiting/Diarrhea Stated Complaint: Vomiting, stomach pain, body aches Time Seen by Provider: 03/12/21 13:25 Source: patient Mode of arrival: ambulatory Limitations: no limitations History of Present Illness: HPI narrative: Patient is a 30-year-old female presents to ED today with a complaint of severe abdominal pain and repetitive episodes of nausea and vomiting. Patient states symptoms of been present over the past 48 hours. She was seen here yesterday in the ED for evaluation and her CT at that time showed possible colitis. She was discharged home with antiemetics. Patient states when she got home symptoms seem to progressively worsen. She is still not able to hold down anything and has continued to have episodes of vomiting. No hematemesis or coffee-ground emesis. She is reporting normal bowel movements. She is currently on her menstrual cycle. Patient reports occasional marijuana use stating she uses 2-3 times weekly and has over the past 10 years. No fevers. MD elicited complaint: abdominal pain Onset (ago): day(s) Pain Consistency: constant Location: Diffuse Severity: severe Quality: cramping and sharp Radiation: none Migration to: no migration Exacerbating factors: eating Relieving factors: nothing Associated Symptoms: Reports chills, nausea and vomiting; Denies change in bowel habits, change in stool character, dysuria, fever(s), hematochezia, hematemesis and melena Related Data: Date of Last Menstrual Period: 03/11/21 Patient : No Review of Systems Const: Reports: chills and change in appetite (doesn't want to eat secondary to abdominal pain/nausea); Denies: fever(s), body aches, change in weight, fatigue or malaise ENMT: Denies: throat pain or odynophagia Card: Denies: chest pain Resp: Denies: dyspnea GI: Reports: abdominal pain, nausea and vomiting; Denies: hematemesis, change in bowel habits, pain on defecation, change in stool character, hematochezia or melena : Denies: flank pain or dysuria Musc: Denies: neck pain, back pain, extremity pain or joint pain Skin/Breast: Denies: rash Neuro: Denies: headache(s), numbness in extremities, weakness in extremities, sensory changes or dizziness [facility] ED PFSH: Social History Smoking and tobacco status: current every day smoker Alcohol intake: current Female Reproductive History: Date of last menstrual period: 03/11/21 Physical Exam Const: COMMON NORMALS: average body habitus, patient oriented x3, no limitations, healthy appearing, alert and well nourished GENERAL APPEARANCE: cooperative, in distress (secondary to discomfort) and anxious ORIENTATION/CONSCIOUSNESS: Yes awake, Yes oriented to person, Yes oriented to place and Yes oriented to time HENMT: COMMON NORMALS: normocephalic and atraumatic HEAD & SCALP: normocephalic and atraumatic Resp: COMMON NORMALS: normal respiratory effort and clear to auscultation bilaterally AUSCULTATION: clear to auscultation bilaterally Cardio: COMMON NORMALS: regular rate and regular rhythm RATE: regular rate RHYTHM: regular rhythm GI: COMMON NORMALS: Normal to inspection, nondistended, normoactive bowel sounds present, No hepatosplenomegaly present and no masses INSPECTION: Yes normal to inspection AUSCULTATION: Yes normoactive bowel sounds PALPATION: Yes Tenderness to palpation present (GI) (epigastric and throughout lower abdomen), Yes Guarding due to palpation present (GI), Yes Rigid due to palpation and Yes No hepatosplenomegaly present : COMMON NORMALS: Yes no CVA tenderness BLADDER/KIDNEY EXAM: Yes no CVA tenderness Back/Pelvis: COMMON NORMALS: no CVA tenderness Extremity: COMMON NORMALS: normal to inspection Neuro: CORA COMA SCALE: document GCS findings [place] coma scale eye opening: Spontaneous [place] coma scale verbal response: Orientated Cora coma scale motor response: Obey commands [place] coma scale total score: 15 COMMON NORMALS: patient oriented x3, CN's II-XII intact bilaterally, moves all extremities, no focal motor deficits, no sensory deficits noted and gait normal SENSORIUM/ORIENTATION: Yes alert, Yes oriented to person, Yes oriented to place and Yes oriented to time Skin: COMMON NORMALS: no rashes or lesions noted GENERAL SKIN EXAM: no rashes or lesions noted TRAUMA: no lacerations or abrasions Course Vital Signs: Vital signs: Vital Signs Temperature 98.4 F 03/12/21 13:00 Pulse Rate 58 L 03/12/21 15:00 Respiratory Rate 17 03/12/21 15:00 Blood Pressure 127/84 03/12/21 15:00 Pulse Oximetry 99 03/12/21 15:00 MDM - Abdominal Pain MDM Narrative: Medical decision making narrative: Patient feels better after medications given here. She was able to hold down a small amount of food/drink. Vital signs are stable. Labs are non-concerning. UA with hematuria but patient currently on menstrual cycle. Repeat CT imaging does not show any significant changes. We will go ahead and place her on Cipro/Flagyl for colitis. Other differential diagnoses include cyclic vomiting syndrome/hyperemesis cannabis syndrome. Recommend bland liquid diet advance as tolerated. Return to ED precautions given. Lab Data: Labs: Lab Results 03/12/21 03/12/21 03/12/21 Range/Units 13:39 13:39 13:39 WBC 13.6 H (4.0-10.0) 10^3/ uL RBC 4.60 (4.1-5.3) 10^6/u L Hgb 14.2 (11.5-15.3) g/dL Hct 43.0 (37.0-47.0) % MCV 93.5 (81-99) fl MCH 30.9 (28.0-34.0) pg MCHC 33.0 (30.0-36.0) g/dL RDW 12.7 (12.1-15.1) % Plt Count 280 (130-400) 10^3/c mm MPV 11.3 H (7.4-10.4) fL Neut % (Auto) 86.7 % Lymph % (Auto) 8.3 % [place] % (Auto) 4.5 % Eos % (Auto) 0.0 % Baso % (Auto) 0.1 % Neut # (Auto) 11.74 H (1.8-7.7) 10^3/u L Lymph # (Auto) 1.1 (0.8-4.8) 10^3/u L [place] # (Auto) 0.6 (0.2-0.9) 10^3/u L Eos # (Auto) 0.0 (0.0-0.8) 10^3/u L Baso # (Auto) 0.0 (0.0-0.1) 10^3/u L Nucleated RBC % (a uto) 0 % Nucleated RBCs # 0.0 /100WBC Sodium 138 (136-145) mmol/L Potassium 3.8 (3.5-5.1) mmol/L Chloride 102 (98-107) mmol/L Carbon Dioxide 23 (22-29) mmol/L Anion Gap 16.8 (5-19) BUN 13 (6-20) mg/dL Creatinine 0.5 (0.5-0.9) mg/dL GFR Calculation 145.9 H (90-130) mL/min Glucose 111 (65-115) mg/dL Calculated Osmolal ity 287 (285-295) mOsm/k g Lactic Acid (0.5-2.2) mmol/L Calcium 9.1 (8.5-10.5) mg/dL Total Bilirubin 0.7 (0.15-1.2) mg/dL AST 18 (0-32) U/L ALT 18 (0-33) U/L Alkaline Phosphata se 57 (35-105) IU/L Total Protein 7.7 (6.6-8.7) g/dL Albumin 4.5 (3.5-5.2) g/dL Globulin 3.2 (1.3-4.6) g/dL Lipase 13 (13-60) U/L HCG, Qual Negative (Negative) Urine Color (Yellow) Urine Appearance (CLEAR) Urine pH (5-7) Ur Specific Gravit y (1.005-1.030) Urine Protein (Negative) Urine Glucose (UA) (Normal) Urine Ketones (Negative) Urine Blood (Negative) Urine Nitrate (Negative) Urine Bilirubin (Negative) Urine Urobilinogen (Negative) mg/dL Ur Leukocyte [place] ase (Negative) Urine RBC (0-2) /hpf Urine WBC (0-5) /hpf Ur Squamous Epith Cells (0-5) /hpf Amorphous Sediment Urine Bacteria (NONE) /hpf Urine Mucus /hpf 03/12/21 03/12/21 Range/Units 13:39 14:45 WBC (4.0-10.0) 10^3/ uL RBC (4.1-5.3) 10^6/u L Hgb (11.5-15.3) g/dL Hct (37.0-47.0) % MCV (81-99) fl MCH (28.0-34.0) pg MCHC (30.0-36.0) g/dL RDW (12.1-15.1) % Plt Count (130-400) 10^3/c mm MPV (7.4-10.4) fL Neut % (Auto) % Lymph % (Auto) % [place] % (Auto) % Eos % (Auto) % Baso % (Auto) % Neut # (Auto) (1.8-7.7) 10^3/u L Lymph # (Auto) (0.8-4.8) 10^3/u L [place] # (Auto) (0.2-0.9) 10^3/u L Eos # (Auto) (0.0-0.8) 10^3/u L Baso # (Auto) (0.0-0.1) 10^3/u L Nucleated RBC % (a uto) % Nucleated RBCs # /100WBC Sodium (136-145) mmol/L Potassium (3.5-5.1) mmol/L Chloride (98-107) mmol/L Carbon Dioxide (22-29) mmol/L Anion Gap (5-19) BUN (6-20) mg/dL Creatinine (0.5-0.9) mg/dL GFR Calculation (90-130) mL/min Glucose (65-115) mg/dL Calculated Osmolal ity (285-295) mOsm/k g Lactic Acid 2.0 (0.5-2.2) mmol/L Calcium (8.5-10.5) mg/dL Total Bilirubin (0.15-1.2) mg/dL AST (0-32) U/L ALT (0-33) U/L Alkaline Phosphata se (35-105) IU/L Total Protein (6.6-8.7) g/dL Albumin (3.5-5.2) g/dL Globulin (1.3-4.6) g/dL Lipase (13-60) U/L HCG, Qual (Negative) Urine Color Yellow (Yellow) Urine Appearance Clear (CLEAR) Urine pH 6 (5-7) Ur Specific Gravit y 1.020 (1.005-1.030) Urine Protein Neg (Negative) Urine Glucose (UA) Norm (Normal) Urine Ketones 1+ H (Negative) Urine Blood 3+ H (Negative) Urine Nitrate Negative (Negative) Urine Bilirubin Neg (Negative) Urine Urobilinogen Norm (Negative) mg/dL Ur Leukocyte [place] ase Negative (Negative) Urine RBC 0-4 H (0-2) /hpf Urine WBC Rare (0-5) /hpf Ur Squamous Epith Cells 5-10 H (0-5) /hpf Amorphous Sediment Not Reportable Urine Bacteria 1+ H (NONE) /hpf Urine Mucus 2+ /hpf Imaging Data ^: CT Abd/Pel: Radiologist's impression: [id number] [place], [place] [address]XS Scan ReportSigned Patient: Karuna Craig #: [id number]: 1990Acct#:[id number]/Sex: 30 / FADM Date: 03/12/21Loc: ERRoom/Bed:Attending Dr: Ordering Provider/Ordering MD: Toma Pittman Date of Service: 03/12/21 Procedure(s): CT abdomen pelvis w con* [id number] Accession Number(s): [id number] Report Number: [id number] WS: [id number] CT scan of the abdomen and pelvis with IV contrast. Additional two-dimensional coronal and sagittal reconstruction was performed. 03/12/2021, 1451 hours Clinical Data: reporting severe ab pain/worsening; N/V Comparison: CT abdomen and pelvis, today, 1203 hours. DLP: 1165.[address] scans at [facility] use at least one of these dose optimization techniques: automated exposure control; mA and/or kV adjustment per patient size (includes targeted exams where dose is matched to clinical indication); or iterative reconstruction. Findings: The lower lungs show no nodules, masses or effusions. The liver, gallbladder, spleen, adrenal glands and pancreas are normal. The kidneys show equal bilateral contrast excretion with no cyst or masses. The abdominal aorta is normal in size. No appendicitis is seen. The stomach and small bowel are unremarkable. Minimal fluid and bowel wall thickening in the ascending colon and transverse colon remain the same. No distal diverticulitis is seen. No abscess, adenopathy, a scites, mass, obstruction or free air is seen. The bladder is unremarkable. The uterus is normal. No inguinal hernia is seen. The bones of the lower thorax, lumbar spine, pelvis, and hips are normal. CT/CT abdomen pelvis w con* [id number] Impression: Minimal fluid and bowel wall thickening in the ascending colon and transverse colon unchanged which may represent nonspecific colitis from inflammatory, drug- induced, or vascular causes. Dictated By:More Loredo MDSigned By:More Loredo MDSigned Date/Time:03/12/217DD/ 154 Discharge Plan Discharge Patient Disposition: Home Clinical Impression: Colitis Condition: Stable Prescriptions: New Flagyl 500 mg tablet 500 mg PO BID 7 Days Qty: 14 RF: 0 Cipro 500 mg tablet 500 mg PO Q12H Qty: 14 RF: 0 No Action ondansetron 4 mg tablet,disintegrating 4 mg PO Q6H PRN (Reason: nausea and vomiting) Qty: 14 RF: 0 metoclopramide HCl [Reglan] 10 mg tablet 10 mg PO Q6H PRN (Reason: nausea and vomiting) Qty: 20 RF: 0 hydrocodone-acetaminophen 5-325 mg Tablet 1 tab PO Q6H MDD see pharmacy comment PRN (Reason: Pain) RF: 0 Discharge Orders: Discharge ED (Routine); Ordered 03/12/21 Ordered By: Toma Pittman Activity Restrictions/Additional Instructions: As we discussed you need to return to the emergency department for worsening or severe abdominal pain, repetitive episodes of vomiting, inability to hold down your medications, fevers, or any other concerns you may have. Please follow-up with primary care as soon as possible for reevaluation. Coding Level of Care Code ED Senior Pastor for German Fwd Exam Comprehensive
--- NOTE | 2021-03-12 13:39 | CT_ITS ---
WS: [id number] CT scan of the abdomen and pelvis with IV contrast. Additional two-dimensional coronal and sagittal r econstruction was performed. 03/12/2021, 1451 hours Clinical Data: reporting severe ab pain/worsening; N/V Comparison: CT abdomen and pelvis, today, 1203 hours. DLP: 1165.[address] scans at [facility] use at least one of these dose optimization techniques: automated e xposure control; mA and/or kV adjustment per patient size (includes targeted exams where dose is matc hed to clinical indication); or iterative reconstruction. Findings: The lower lungs show no nodules, masses or effusions. The liver, gallbladder, spleen, adrenal glands and pancreas are normal. The kidneys show equal bilateral contrast excretion with no cyst or masses. The abdominal aorta is normal in size. No appendicitis is seen. The stomach and small bowel are unremarkable. Minimal fluid and bowel wall t hickening in the ascending colon and transverse colon remain the same. No distal diverticulitis is se en. No abscess, adenopathy, ascites, mass, obstruction or free air is seen. The bladder is unremarkable. The uterus is normal. No inguinal hernia is seen. The bones of the lower thorax, lumbar spine, pelvis, and hips are normal. CT/CT abdomen pelvis w con* [id number] Impression: Minimal fluid and bowel wall thickening in the ascending colon and transverse c olon unchanged which may represent nonspecific colitis from inflammatory, drug- induced, or vascular causes.
[2021-03-12] MEDS: morphine 4 mg/mL SDV 1 mL IVP (13:56)
[2021-03-12] MEDS: sodium chloride 0.9% 1,000 ML 999 ML IV (13:56)
[2021-03-12] MEDS: metoclopramide 5 mg/mL SDV 2 mL 10 MG IVP (13:57)
[2021-03-12] MEDS: LORazepam 2 mg/mL INJ 1 mL 0.5 MG IVP (13:57)
[2021-03-12 13:58] LABS: Basophils % 0.1 %; Hemoglobin 14.2 g/dL (11.5-15.3); Lymphocytes # 1.1 10^3/uL (0.8-4.8); Lymphocytes % 8.3 %; Mean Corpuscular Hemoglobin 30.9 pg (28.0-34.0); Mean Corpuscular Volume 93.5 fl (81-99); Mean Platelet Volume 11.3 fL (7.4-10.4); Monocytes # 0.6 10^3/uL (0.2-0.9); Monocytes % 4.5 %; Neutrophils # 11.74 10^3/uL (1.8-7.7); Neutrophils % 86.7 %; Nucleated Red Blood Cells % 0 %; Platelet Count 280 10^3/cmm (130-400); Red Cell Distribution Width 12.7 % (12.1-15.1); White Blood Count 13.6 10^3/uL (4.0-10.0)
[2021-03-12 14:35] LABS: HCG, Serum Qual Negative (Negative)
[2021-03-12 14:36] LABS: Alanine Aminotransferase 18 U/L (0-33); Albumin Level 4.5 g/dL (3.5-5.2); Alkaline Phosphatase 57 IU/L (35-105); Anion Gap 16.8 (5-19); Aspartate Amino Transferase 18 U/L (0-32); Blood Urea Nitrogen 13 mg/dL (6-20); Calcium 9.1 mg/dL (8.5-10.5); Carbon Dioxide 23 mmol/L (22-29); Chloride 102 mmol/L (98-107); Creatinine Clr Calc Pharmacy 154.9657; Globulin 3.2 g/dL (1.3-4.6); Glomerular Filtration Rate 145.9 mL/min (90-130); Glucose 111 mg/dL (65-115); Lipase 13 U/L (13-60); Osmolality Calculated 287 mOsm/kg (285-295); Potassium 3.8 mmol/L (3.5-5.1); Sodium 138 mmol/L (136-145); Total Bilirubin 0.7 mg/dL (0.15-1.2); Total Protein 7.7 g/dL (6.6-8.7)
[2021-03-12] MEDS: iohexol 300 mg/mL 100 mL Btl IV (14:48)
[2021-03-12 15:05] LABS: Add Urine Microscopic? YES; Bilirubin Urine Neg (Negative); Blood Urine 3+ (Negative); Glucose Urine UA Norm (Normal); Ketones Urine 1+ (Negative); Leukocyte Esterase Urine Negative (Negative); Nitrate Urine Negative (Negative); Protein Urine Neg (Negative); Urine Appearance Clear (CLEAR); Urine Color Yellow (Yellow); Urobilinogen Urine Norm (Negative); pH Urine 6 (5-7)
[2021-03-12 15:07] LABS: Add Urine Culture? No; Bacteria Urine 1+ /hpf; Mucus Urine 2+ /hpf; RBC Urine 0-4 /hpf (0-2); WBC Urine RARE /hpf (0-5)
== END 2021-03-12 17:00 | disposition home or self-care (01) ==
PROVIDERS: Emergency Provider Physician Assistant
DX: K52.9 Noninfective gastroenteritis and colitis, unspecified (principal); F17.210 Nicotine dependence, cigarettes, uncomplicated
CPT/HCPCS: 74177; 80053; 81001; 83605; 83690; 84703; 85025; 96361; 96374; 96375; 99284; J2060; J2270; J2765; J7030; Q9967

== ENCOUNTER 2021-03-13 05:05 | Inpatient (IN) | payer SELFPAY ==
[2021-03-13] VITALS (8 sets, daily range): BP systolic 149–192; BP diastolic 78–101; PULSE 47–95; RESP 16–22; TEMP 36.6–36.9; O2SAT 98–100; BMI 24.9; BMI 27.1
--- NOTE | 2021-03-13 05:17 | W.ED.NAVMDI ---
HPI - Nausea/Vomiting/Diarrhea General: Chief complaint: Nausea/Vomiting/Diarrhea Stated complaint: N\V Time Seen by Provider: 03/13/21 05:06 Source: patient Mode of arrival: ambulatory Limitations: no limitations History of Present Illness: HPI Narrative: 10-year-old female has been having vomiting over the last day and a half. Patient seen here 2 other times states she is feeling improved and woke up again this morning at 330 vomiting. States she had multiple episodes of vomiting with abdominal pain. Patient's been to prescribe Zofran and Phenergan with no improvement. She denies any fevers. Her CT showed a possible colitis and patient was started on Cipro and Flagyl. She denies any worsening or improving factors. Associated nausea: Yes Associated symtoms: Reports nausea; Denies chest pain, dysuria or headache(s) Review of Systems Const: Denies: fever(s), chills, body aches or change in appetite Eyes: Denies: blurry vision or eye discomfort ENMT: Denies: throat pain or dental pain Card: Denies: chest pain Resp: Denies: dyspnea GI: Reports: abdominal pain, nausea and vomiting : Denies: dysuria Musc: Denies: neck pain or back pain Skin/Breast: Denies: rash Neuro: Denies: headache(s) Psych: Denies: depression Jarrod/Lymph: Denies: easy bruising All/Imm: Denies: urticaria PFSH ED PFSH: Social History Smoking and tobacco status: current every day smoker Alcohol intake: current Female Reproductive History: Date of last menstrual period: 03/11/21 Physical Exam Const: COMMON NORMALS: patient oriented x3 and healthy appearing GENERAL APPEARANCE: in distress HENMT: COMMON NORMALS: normocephalic and atraumatic HEAD & SCALP: normocephalic and atraumatic Eye: COMMON NORMALS: Equal, round and reactive pupils present and EOMs intact bilaterally PUPIL: Yes Equal, round and reactive pupils present Neck/C-Spine: COMMON NORMALS: full ROM and supple Chest: COMMONS NORMALS: normal inspection of the chest and normal palpation of entire chest wall Resp: COMMON NORMALS: normal respiratory effort, No retractions, No use of accessory muscles and clear to auscultation bilaterally AUSCULTATION: clear to auscultation bilaterally Cardio: COMMON NORMALS: regular rate, regular rhythm and No murmurs present (Cardio) RATE: regular rate RHYTHM: regular rhythm GI: COMMON NORMALS: Normal to inspection, nondistended, normoactive bowel sounds present, Soft to palpation, non-tender and no masses PALPATION: Yes Soft to palpation Extremity: COMMON NORMALS: normal to inspection and full ROM Neuro: COMMON NORMALS: patient oriented x3, moves all extremities and no focal motor deficits Psych: COMMON NORMALS: mental status grossly normal, Normal thought process present and cooperative THOUGHT PROCESS: Normal thought process present Skin: COMMON NORMALS: no rashes or lesions noted and no wounds GENERAL SKIN EXAM: no rashes or lesions noted Course Vital Signs: Vital signs: Vital Signs Temperature 98.5 F 03/13/21 16:00 Pulse Rate 61 03/13/21 16:00 Respiratory Rate 18 03/13/21 16:00 Blood Pressure 172/101 03/13/21 16:00 Pulse Oximetry 100 03/13/21 16:00 MDM - Nausea/Vomiting/Diarrhea MDM Narrative: Medical decision making narrative: Patient presents with intractable vomiting likely due to marijuana abuse. Patient is improving here but still quite nauseous and vomiting. This is her third visit in 24 hours and I spoke to hospitalist will admit for observation for her intractable vomiting. Lab Data: Labs: Lab Results 03/13/21 03/13/21 03/13/21 Range/Units 05:20 05:20 05:20 WBC 7.9 (4.0-10.0) 10^3/ uL RBC 4.29 (4.1-5.3) 10^6/u L Hgb 12.9 (11.5-15.3) g/dL Hct 39.4 (37.0-47.0) % MCV 91.8 (81-99) fl MCH 30.1 (28.0-34.0) pg MCHC 32.7 (30.0-36.0) g/dL RDW 12.3 (12.1-15.1) % Plt Count 252 (130-400) 10^3/c mm MPV 10.6 H (7.4-10.4) fL Neut % (Auto) 65.6 % Lymph % (Auto) 26.3 % [place] % (Auto) 6.9 % Eos % (Auto) 0.4 % Baso % (Auto) 0.5 % Neut # (Auto) 5.17 (1.8-7.7) 10^3/u L Lymph # (Auto) 2.1 (0.8-4.8) 10^3/u L [place] # (Auto) 0.5 (0.2-0.9) 10^3/u L Eos # (Auto) 0.0 (0.0-0.8) 10^3/u L Baso # (Auto) 0.0 (0.0-0.1) 10^3/u L Nucleated RBC % (a uto) 0 % Nucleated RBCs # 0.0 /100WBC ESR 5 (0-15) mm/hr Sodium 141 (136-145) mmol/L Potassium 3.3 L (3.5-5.1) mmol/L Chloride 106 (98-107) mmol/L Carbon Dioxide 23 (22-29) mmol/L Anion Gap 15.3 (5-19) BUN 9 (6-20) mg/dL Creatinine 0.6 (0.5-0.9) mg/dL GFR Calculation 118.2 (90-130) mL/min Glucose 103 (65-115) mg/dL Calculated Osmolal ity 291 (285-295) mOsm/k g Calcium 8.7 (8.5-10.5) mg/dL Total Bilirubin 0.7 (0.15-1.2) mg/dL AST 23 (0-32) U/L ALT 24 (0-33) U/L Alkaline Phosphata se 51 (35-105) IU/L C-Reactive Protein (0.0-4.9) mg/L Total Protein 6.6 (6.6-8.7) g/dL Albumin 4.1 (3.5-5.2) g/dL Globulin 2.5 (1.3-4.6) g/dL Lipase 25 (13-60) U/L 03/13/21 Range/Units 05:20 WBC (4.0-10.0) 10^3/ uL RBC (4.1-5.3) 10^6/u L Hgb (11.5-15.3) g/dL Hct (37.0-47.0) % MCV (81-99) fl MCH (28.0-34.0) pg MCHC (30.0-36.0) g/dL RDW (12.1-15.1) % Plt Count (130-400) 10^3/c mm MPV (7.4-10.4) fL Neut % (Auto) % Lymph % (Auto) % [place] % (Auto) % Eos % (Auto) % Baso % (Auto) % Neut # (Auto) (1.8-7.7) 10^3/u L Lymph # (Auto) (0.8-4.8) 10^3/u L [place] # (Auto) (0.2-0.9) 10^3/u L Eos # (Auto) (0.0-0.8) 10^3/u L Baso # (Auto) (0.0-0.1) 10^3/u L Nucleated RBC % (a uto) % Nucleated RBCs # /100WBC ESR (0-15) mm/hr Sodium (136-145) mmol/L Potassium (3.5-5.1) mmol/L Chloride (98-107) mmol/L Carbon Dioxide (22-29) mmol/L Anion Gap (5-19) BUN (6-20) mg/dL Creatinine (0.5-0.9) mg/dL GFR Calculation (90-130) mL/min Glucose (65-115) mg/dL Calculated Osmolal ity (285-295) mOsm/k g Calcium (8.5-10.5) mg/dL Total Bilirubin (0.15-1.2) mg/dL AST (0-32) U/L ALT (0-33) U/L Alkaline Phosphata se (35-105) IU/L C-Reactive Protein 0.7 (0.0-4.9) mg/L Total Protein (6.6-8.7) g/dL Albumin (3.5-5.2) g/dL Globulin (1.3-4.6) g/dL Lipase (13-60) U/L Discharge Plan Discharge Patient Disposition: Admitted As Inpatient Admit Provider: Ruthann Vasquez Clinical Impression: Vomiting Qualifiers: Vomiting type: unspecified Vomiting Intractability: intractable Nausea presence: with nausea Qualified Code(s): R11.2 - Nausea with vomiting, unspecified Condition: Stable Coding Level of Care Code ED Urology Nurse for Chg Fwd Exam Comprehensive
[2021-03-13] MEDS: diphenhydrAMINE 50 mg/mL SDV 1mL IVP (05:23)
[2021-03-13] MEDS: metoclopramide 5 mg/mL SDV 2 mL 10 MG IVP (05:23)
[2021-03-13] MEDS: sodium chloride 0.9% 1,000 ML 999 ML IV (05:25)
[2021-03-13] MEDS: LORazepam 2 mg/mL INJ 1 mL 1 MG IVP (05:25)
[2021-03-13 05:32] LABS: Basophils % 0.5 %; Eosinophils % 0.4 %; Hematocrit 39.4 % (37.0-47.0); Hemoglobin 12.9 g/dL (11.5-15.3); Lymphocytes # 2.1 10^3/uL (0.8-4.8); Lymphocytes % 26.3 %; Mean Corpuscular HGB Conc 32.7 g/dL (30.0-36.0); Mean Corpuscular Hemoglobin 30.1 pg (28.0-34.0); Mean Corpuscular Volume 91.8 fl (81-99); Mean Platelet Volume 10.6 fL (7.4-10.4); Monocytes # 0.5 10^3/uL (0.2-0.9); Monocytes % 6.9 %; Neutrophils # 5.17 10^3/uL (1.8-7.7); Neutrophils % 65.6 %; Nucleated Red Blood Cells % 0 %; Platelet Count 252 10^3/cmm (130-400); Red Blood Count 4.29 10^6/uL (4.1-5.3); Red Cell Distribution Width 12.3 % (12.1-15.1); White Blood Count 7.9 10^3/uL (4.0-10.0)
[2021-03-13 05:54] LABS: Alanine Aminotransferase 24 U/L (0-33); Albumin Level 4.1 g/dL (3.5-5.2); Alkaline Phosphatase 51 IU/L (35-105); Anion Gap 15.3 (5-19); Aspartate Amino Transferase 23 U/L (0-32); Blood Urea Nitrogen 9 mg/dL (6-20); Calcium 8.7 mg/dL (8.5-10.5); Carbon Dioxide 23 mmol/L (22-29); Chloride 106 mmol/L (98-107); Globulin 2.5 g/dL (1.3-4.6); Glomerular Filtration Rate 118.2 mL/min (90-130); Glucose 103 mg/dL (65-115); Lipase 25 U/L (13-60); Osmolality Calculated 291 mOsm/kg (285-295); Potassium 3.3 mmol/L (3.5-5.1); Sodium 141 mmol/L (136-145); Total Bilirubin 0.7 mg/dL (0.15-1.2); Total Protein 6.6 g/dL (6.6-8.7)
--- NOTE | 2021-03-13 07:38 | P.HP_ITS ---
Providers/Chief Complaint Admitting Physician: Ruthann Vasquez MD Chief Complaint: N\V History of Present Illness Karuna Craig is a 30 year old female presenting with 3 days of severe nausea vomiting along with lower abdominal pain for which she has visited ER 3 days in a row. CT of the abdomen and pelvis performed on 03/11 and 03/12 had showed colitis in ascending and transverse colon. Was started on po cipro/flagyl yesterday however has been unable to keep any medeciation down due to vomiting. SHe appears dehydarted. No fever. B Hcg negative. Review of Systems General: Reports: 10 or more systems reviewed and unremarkable except in HPI and below Const: Denies: fever(s), chills or body aches Eyes: Denies: change in vision, blurry vision or photophobia ENMT: Denies: throat pain, enlarged tonsils, odynophagia or nasal congestion Card: Denies: chest pain, palpitations, irregular heart rhythm, edema, swelling of feet/ankles, lightheadedness, pre-syncope, dyspnea on exertion or orthopnea Resp: Denies: dyspnea, productive cough, non-productive cough, wheezing, stridor, pain on inspiration, change in phlegm color, hemoptysis or chest congestion GI: Reports: abdominal pain, nausea and vomiting; Denies: hematemesis, coffee ground emesis, dysphagia, heartburn, diarrhea, constipation, GI cramping, change in stool character, hematochezia or melena : Denies: flank pain, difficulty voiding, dysuria, urinary frequency, urinary urgency, urinary hesitancy or hematuria Musc: Denies: neck pain, back pain, extremity pain, joint swelling, joint warmth or deformity Neuro: Denies: headache(s), numbness in extremities, weakness in extremities, sensory changes, difficulty walking, frequent falls, dizziness, vertigo, behavioral changes, Slurred speech present or seizure-like activity Psych: Denies: anxiety, depression, suicidal ideation or homicidal ideation Endo: Denies: polyuria, polydipsia, tired all the time, cold intolerance or hot flashes Jarrod/Lymph: Denies: easy bruising or easy bleeding Medications/Allergies Home Medications Medication Instructions Recorded Confirmed Last Taken Type ciprofloxacin HCl [Cipro] 500 mg PO Q12H #14 tab 03/12/21 Unknown Rx hydrocodone-acetaminophen 1 tab PO Q6H PRN MDD see pharmacy 03/12/21 03/12/21 03/12/21 History comment metoclopramide HCl [Reglan] 10 mg PO Q6H PRN #20 tab 03/12/21 03/12/21 03/12/21 08:00 Rx metronidazole [Flagyl] 500 mg PO BID 7 Days #14 tab 03/12/21 Unknown Rx ondansetron 4 mg PO Q6H PRN #14 tab 03/12/21 03/12/21 03/12/21 02:30 Rx Allergies Allergy/AdvReac Type Severity Reaction Status Date / Time tramadol Allergy ALGY-Watery Verified 01/23/21 12:40 Eye PFSH Acute PFSH: Social History Smoking and tobacco status: current every day smoker Alcohol intake: current Female Reproductive History: Date of last menstrual period: 03/11/21 Vitals/I&O/Wt Last Vital Signs Temp 98.4 F 03/13/21 07:34 Pulse 53 L 03/13/21 07:34 Resp 18 03/13/21 07:34 BP 192/79 03/13/21 07:34 Pulse Ox 100 03/13/21 07:34 03/12/21 03/13/21 03/13/21 22:59 06:59 14:59 Intake Total 1000 / 1000 Balance 1000 / 1000 Weight last 48 hrs Weight 65.771 kg Physical Exam Narrative: EXAM NARRATIVE: General: No acute distress, AO x3, appears dehydrated HEENT: PERRLA, pupils bilaterally equal and reactive, pallors not present Chest: Normal vesicular breath sounds, no added sounds, equal good air entry bilaterally CVS: S1-S2 regular, no murmurs, no tachycardia, no gallops, no rubs Abdomen: Soft, nontender, no organomegaly, bowel sounds present Neuro: No focal deficits, no facial deformity, AO x3, power 5/5 in all limbs Data : 03/13/21 05:20 03/13/21 05:20 A&P Assessment and plan (1) Colitis: COlitis as noted on CT imaging with abdominal pain, nausea and vomiting unable to take any po intake resulting in dehydration Admit for IVF hydration, iv abx until clincally able to take po fluids and medication clear liquid diet in the interim prn zofran and reglan for symptomatic management NS @ 75cc/hr supplement K Status: Acute (2) Vomiting: Status: Acute Qualifiers: Nausea presence: with nausea Vomiting Intractability: intractable Vomiting type: unspecified Qualified Code(s): R11.2 - Nausea with vomiting, unspecified Attestations Medical Necessity Statement*: Observation admission for colitis, dehydration, need for emesis control, iv hydration and iv abx Coding Level of Care Code Acute Retread Supervisor for [facility] Fw Diagnoses Colitis K52.9 Vomiting R11.2 Nausea presence: with nausea Vomiting Intractability: intractable Vomiting type: unspecified
[2021-03-13] MEDS: sodium chloride 0.9% 1,000 ML 75 ML IV ×2 (07:56→22:30)
[2021-03-13] MEDS: ondansetron 2 mg/ML SDV 2 mL 4 MG IVP (07:56)
--- NOTE | 2021-03-13 08:46 | PC.PHAR ---
pt states she takes care of her own medications-pt states she hasnt filled the zofran rx-pt states she has been taking an old rx of norco pt states she is out now and states her last tab was taken on wednesday03/11/21
[2021-03-13] MEDS: piperacillin-tazobactam 3.375 GM in sodium chloride 0.9% (plus) 50 ML IV ×3 (09:45→23:28)
[2021-03-13] MEDS: famotidine 20 mg/2 mL INJ IVP ×2 (09:45→19:46)
[2021-03-13 10:28] LABS: C Reactive Protein 0.7 mg/L (0.0-4.9)
[2021-03-13 10:50] LABS: SARS Covid-2 Antigen Negative (Negative)
[2021-03-13 10:56] LABS: Erythrocyte Sedimentation Rate 5 mm/hr (0-15)
[2021-03-13] MEDS: morphine 4 mg/mL SDV 1 mL 1 MG IVP ×2 (13:54→19:46)
--- NOTE | 2021-03-13 14:00 | ECG_ITS ---
[facility] Test Date: 2021-03-13 Pat Name: Karuna Craig Department: Room: 252 Gender: Female [place] [employer]: : 1990 Requested By: Magdiel Rosales Order Number: [id number] Brissa MD: Jose Hoang M.D. Measurements Intervals [place] Rate: 51 P: 58 MD: 150 QRS: 53 QRSD: 96 T: 42 QT: 450 QTc: 415 Interpretive Statements SINUS BRADYCARDIA WITH OCCASIONAL SUPRAVENTRICULAR PREMATURE COMPLEXES Compared to ECG 07/03/2017 10:46:37 Sinus arrhythmia no longer present Early repolarization no longer present Electronically Signed On 03-13-2021 20:04:22 CDT by Jose Hoang M.D. [id number]
--- NOTE | 2021-03-13 14:02 | P.PN_ITS ---
Subjective Subjective: Interval history: Admitted overnight. Still complaining of nausea. Most of the clear liquid diet. States abdominal pain is tolerable. Complaining of diarrhea. Denies any dizziness, headache. Vitals/I&O/Wt Last Vital Signs Temp 98.4 F 03/13/21 07:34 Pulse 53 L 03/13/21 07:34 Resp 18 03/13/21 07:34 BP 180/84 03/13/21 13:58 Pulse Ox 100 03/13/21 07:34 03/12/21 03/13/21 03/13/21 22:59 06:59 14:59 Intake Total 1050 / 1050 Balance 1050 / 1050 Weight last 48 hrs Weight 71.668 kg Weight 65.771 kg Physical Exam Narrative: EXAM NARRATIVE: General: No acute distress, AO x3 HEENT: PERRLA, pupils bilaterally equal and reactive Chest: Normal vesicular breath sounds, no added sounds, equal good air entry bilaterally CVS: S1-S2 regular, no murmurs, no tachycardia, no gallops, no rubs Abdomen: Soft, tenderness in lower quadrant, no organomegaly, bowel sounds present, hyperactive Neuro: No focal deficits, no facial deformity, AO x3, power 5/5 in all limbs Data : 03/13/21 05:20 03/13/21 05:20 A&P Assessment and plan (1) Colitis: As noted on CT imaging with abdominal pain, nausea and vomiting Unable to take p.o. intake or medication. Continue with normal saline at 75 cc/h. Zosyn. Stool studies pending. Zofran and Reglan as needed. If needed will add Ativan. Monitor electrolytes. Check EKG to check for QTC. Status: Acute (2) Vomiting: Could be secondary to colitis versus cyclic vomiting syndrome from chronic marijuana use. Medication as above. We will continue to monitor. Clear liquid diet for now. Will advance as tolerated. Status: Acute Qualifiers: Nausea presence: with nausea Vomiting Intractability: intractable Vo miting type: unspecified Qualified Code(s): R11.2 - Nausea with vomiting, unspecified Additional A&P Information High blood pressure: Most likely reactive to pain and nausea. We will continue to monitor. Goal blood pressure less than 160 mmHg. Hydralazine as needed. Full code. Clear liquid diet. Low probability of VTE. Attestations Medical Necessity Statement*: Karuna Craig is being changed to inpatient status as stay will now exceed 2 midnights. Ongoing hospital care is necessary for colitis/maintain oral hydration and take oral antibiotics. Time Spent in Patient Care: Greater than 35 minutes (>than 50% of time spent in counselling and/or direct pt care on unit) . Coding Level of Care Code Acute Styrene Dehydration Reactor Operator for g Fwd Diagnoses Colitis K52.9 Vomiting R11.2 Nausea presence: with nausea Vomiting Intractability: intractable Vomiting type: unspecified
[2021-03-13] MEDS: promethazine 25 mg/mL SDV 1 mL 12.5 MG IM (16:06)
--- NOTE | 2021-03-13 17:50 | PC.NURSE ---
pts bp is high. she has been having bad stomach pain.
[2021-03-14] VITALS (10 sets, daily range): BP systolic 134–161; BP diastolic 82–87; PULSE 42–74; RESP 14–18; TEMP 36.6–37.1; O2SAT 95–100
[2021-03-14] MEDS: ondansetron 2 mg/ML SDV 2 mL 4 MG IVP ×4 (00:26→20:40)
[2021-03-14] MEDS: morphine 4 mg/mL SDV 1 mL 1 MG IVP ×4 (01:50→20:40)
[2021-03-14] MEDS: metoclopramide 5 mg/mL SDV 2 mL IVP (04:52)
--- NOTE | 2021-03-14 05:20 | PC.NURSE ---
Patient AAOx4, c/o pain in lower abdomen with several episodes of emesis throughout shift. Pain medication in MAR appears to be controlling the pain for a few hours. Patient states that the antiemetics aren't helping. Low heart rate with remaining VSS, OOBT bathroom without complications. No new events, room clutter free, call light in reach, no needs at this time. WIll monitor until reporting and handoff to oncoming nurse at shift change.
[2021-03-14 06:31] LABS: Basophils % 0.5 %; Eosinophils % 0.1 %; Hematocrit 38.9 % (37.0-47.0); Hemoglobin 12.7 g/dL (11.5-15.3); Lymphocytes # 1.7 10^3/uL (0.8-4.8); Lymphocytes % 19.5 %; Mean Corpuscular HGB Conc 32.6 g/dL (30.0-36.0); Mean Corpuscular Hemoglobin 29.4 pg (28.0-34.0); Mean Platelet Volume 11.2 fL (7.4-10.4); Monocytes # 0.5 10^3/uL (0.2-0.9); Monocytes % 5.9 %; Neutrophils # 6.41 10^3/uL (1.8-7.7); Neutrophils % 73.3 %; Nucleated Red Blood Cells % 0 %; Platelet Count 255 10^3/cmm (130-400); Red Blood Count 4.32 10^6/uL (4.1-5.3); Red Cell Distribution Width 11.8 % (12.1-15.1); White Blood Count 8.7 10^3/uL (4.0-10.0)
[2021-03-14 06:50] LABS: Alanine Aminotransferase 45 U/L (0-33); Albumin Level 3.9 g/dL (3.5-5.2); Alkaline Phosphatase 53 IU/L (35-105); Anion Gap 12.1 (5-19); Aspartate Amino Transferase 34 U/L (0-32); Blood Urea Nitrogen 6 mg/dL (6-20); Calcium 8.5 mg/dL (8.5-10.5); Carbon Dioxide 27 mmol/L (22-29); Chloride 102 mmol/L (98-107); Globulin 2.5 g/dL (1.3-4.6); Glomerular Filtration Rate 118.2 mL/min (90-130); Glucose 94 mg/dL (65-115); Osmolality Calculated 283 mOsm/kg (285-295); Potassium 3.1 mmol/L (3.5-5.1); Sodium 138 mmol/L (136-145); Total Bilirubin 0.8 mg/dL (0.15-1.2); Total Protein 6.4 g/dL (6.6-8.7)
--- NOTE | 2021-03-14 07:44 | PC.NURSE ---
Spoke with Froylan Beltran which is patient's boyfriend and patient gave verbal permission to talk to speak with him.
[2021-03-14] MEDS: famotidine 20 mg/2 mL INJ IVP ×2 (07:54→20:40)
[2021-03-14] MEDS: piperacillin-tazobactam 3.375 GM in sodium chloride 0.9% (plus) 50 ML IV ×3 (07:56→23:37)
[2021-03-14] MEDS: potassium chloride ER 20 mEq Tablet 40 MEQ PO ×2 (10:10→13:44)
[2021-03-14] MEDS: sodium chloride 0.9% 1,000 ML 75 ML IV (11:08)
--- NOTE | 2021-03-14 14:30 | PC.CHAP ---
Pastoral Care Encounter/Spiritual Assessment Type of Contact [] Declined marketing sales consultant visit [] Patient/Family/Request visit [] Outpatient visit [] Follow-up visit [] Physician referral [] Code/Alert [xx] Routine visit [] Staff referral [] Actively dying [] Patient sleeping [] Family support [] [] Out of room [] Palliative care [] [] Receiving care in room [] Pre-surgical visit [] Trauma [] Long length of stay [] ICU visit [] Other: Relational/Emotional Strength [] Patient feels connected with others/family/visitors/staff [xx] Distress [] Loneliness/isolation [] Abandonment Spirituality of Patient [xx] Person of Tia [] Attends Druze of their Tia [xx] Believes in Prayer [xx] Reads Bible or Baptism materials [] There are Spiritual issues to be addressed Rocket Assembly Operator Interventions [xx] Prayer [xx] Active listening [] Non-anxious presence [] Spiritual/emotional support [] Crisis/trauma care [] Spiritual counseling [] Bereavement support [] Provided bereavement packet [xx] Provided Bible/devotional materials [] Provided toy/stuffed animal, coloring book to patient or family member [] Provided Communion [] Anointing/Bighorn [] Salvation [xx] Completed spiritual assessment [] Other: Impact on Illness or Injury [] Angry [] Fearful [xx] Anxious [xx] Often cries [] Exhaustion [] Unable to work [] Unable to attend orthodox [] Unable to walk/stand [] Unable to read [] Unable to drive [] Unable to eat/drink [] Unable to sleep [] Unable to be with family [] Patient intubated [] Other: Summary Patient was in extreme distress and crying almost uncontrollably. She did not want to discuss her very bad day but was desperate for prayer. Rocket Assembly Operator later spoke with her nurse who stated patient was experiencing high emotions and embarrassment due to her time of month as well as illness but had not been given any life-altering diagnoses. Time spent with patient 5 minutes
--- NOTE | 2021-03-14 14:36 | PM.PN ---
Subjective Subjective: Interval history: No acute events overnight. Patient states she is feeling little better. Pain is little better. No vomiting but has nausea after eating. Has had 3-4 bowel movements today morning. Stool negative for C. difficile. Vitals/I&O/Wt Last Vital Signs Temp 98.8 F 03/14/21 12:00 Pulse 53 L 03/14/21 12:00 Resp 16 03/14/21 13:42 BP 161/82 03/14/21 12:00 Pulse Ox 95 03/14/21 13:42 03/13/21 03/14/21 03/14/21 22:59 06:59 14:59 Intake Total 1050 / 2100 170 / 2270 1837.5 / 1837.5 Balance 1050 / 2100 170 / 2270 1837.5 / 1837.5 Weight last 48 hrs Weight 71.668 kg Weight 65.771 kg Physical Exam Narrative: EXAM NARRATIVE: General: No acute distress, AO x3 HEENT: PERRLA, pupils bilaterally equal and reactive Chest: Normal vesicular breath sounds, no added sounds, equal good air entry bilaterally CVS: S1-S2 regular, no murmurs, no tachycardia, no gallops, no rubs Abdomen: Soft, tenderness in lower quadrant, no organomegaly, bowel sounds present, hyperactive Neuro: No focal deficits, no facial deformity, AO x3, power 5/5 in all limbs Data : 03/14/21 05:26 03/14/21 05:26 Micro: Microbiology 03/14/21 07:59 Enteric Pathogens (PCR) - Final Stool Routine Collection 03/14/21 07:59 C.difficile Toxin B Gene (PCR) - Final Stool Routine Collection A&P Assessment and plan (1) Colitis: As noted on CT imaging with abdominal pain, nausea and vomiting Unable to take p.o. intake or medication. Continue with normal saline at 75 cc/h. Zosyn. Stool studies negative. Zofran and Reglan as needed. If needed will add Ativan. Monitor electrolytes. Check EKG to check for QTC. Status: Acute (2) Vomiting: Could be secondary to colitis versus cyclic vomiting syndrome from chronic marijuana use. Medication as above. We will continue to monitor. Advance to full liquid diet. Status: Acute Qualifiers: Nausea presence: with nausea Vomiting Intractability: intractable Vomiting type: unspecified Qualified Code(s): R11.2 - Nausea with vomiting, unspecified Additional A&P Information High blood pressure: Persistently elevated. Start on amlodipine 5 mg daily. We will continue to monitor. Goal blood pressure less than 140/90 mmHg. Hydralazine as needed. Replace potassium. Full code. Full liquid diet. Low probability of VTE. Attestations Medical Necessity Statement*: Requires further hospitalization for management of nausea and vomiting secondary to colitis, unable to maintain oral intake. Time Spent in Patient Care: Greater than 35 minutes (>than 50% of time spent in counselling and/or direct pt care on unit). Coding Level of Care Code Acute Licensed Occupational Therapist for [facility] Fwd Diagnoses Colitis K52.9 Vomiting R11.2 Nausea presence: with nausea Vomiting Intractability: intractable Vomiting type: unspecified
[2021-03-14] MEDS: amlodipine 5 mg Tablet PO (15:12)
--- NOTE | 2021-03-14 18:01 | PC.RESP ---
SMOKING CESSATION INFORMATION SENT TO PATIENT.
--- NOTE | 2021-03-14 18:43 | PC.NURSE ---
End of shift report Patient has not vomited today but has dry heaved some. Patient stated that she felt a little better. No obvious distress noted.
--- NOTE | 2021-03-14 19:33 | PC.NURSE ---
Report to Nida COBURN at this time.
[2021-03-14] MEDS: LORazepam 2 mg/mL INJ 1 mL 0.5 MG IVP (22:18)
[2021-03-15] MEDS: sodium chloride 0.9% 1,000 ML 75 ML IV (00:33)
[2021-03-15 02:04] VITALS: RESP 18
[2021-03-15] MEDS: morphine 4 mg/mL SDV 1 mL 1 MG IVP ×2 (02:04→09:00)
[2021-03-15] MEDS: ondansetron 2 mg/ML SDV 2 mL 4 MG IVP ×2 (02:04→11:54)
[2021-03-15 04:00] VITALS: BP 146/84; PULSE 64; RESP 17; TEMP 36.8; O2SAT 95
--- NOTE | 2021-03-15 05:47 | PC.NURSE ---
Patient AAOx4, c/o pain in abdomen throughout shift, c/o pain is increasing in intensity and length, pain medication helps but patient requests more with in a few hours and next dose not due when requested. Patient dry heaving throughout shift. Patient c/o discomfort along with the pain and requesting something to help her calm down. Administered medications per SEP. VSS, no new events. Room clutter free and call light in reach. Will report and handoff to oncoming nurse at shift change.
[2021-03-15 06:09] LABS: Alanine Aminotransferase 51 U/L (0-33); Albumin Level 3.8 g/dL (3.5-5.2); Alkaline Phosphatase 56 IU/L (35-105); Anion Gap 13.7 (5-19); Aspartate Amino Transferase 27 U/L (0-32); Blood Urea Nitrogen 5 mg/dL (6-20); Calcium 8.4 mg/dL (8.5-10.5); Carbon Dioxide 24 mmol/L (22-29); Chloride 103 mmol/L (98-107); Globulin 2.8 g/dL (1.3-4.6); Glomerular Filtration Rate 118.2 mL/min (90-130); Glucose 99 mg/dL (65-115); Osmolality Calculated 281 mOsm/kg (285-295); Potassium 3.7 mmol/L (3.5-5.1); Sodium 137 mmol/L (136-145); Total Bilirubin 0.8 mg/dL (0.15-1.2); Total Protein 6.6 g/dL (6.6-8.7)
[2021-03-15 07:59] VITALS: BP 162/92; PULSE 93; RESP 16; TEMP 36.9; O2SAT 100
[2021-03-15] MEDS: piperacillin-tazobactam 3.375 GM in sodium chloride 0.9% (plus) 50 ML IV (08:55)
[2021-03-15] MEDS: famotidine 20 mg/2 mL INJ IVP (08:55)
[2021-03-15] MEDS: amlodipine 5 mg Tablet PO (08:56)
[2021-03-15 09:00] VITALS: RESP 18; O2SAT 98
[2021-03-15 11:15] VITALS: BP 172/96; PULSE 62; RESP 20; TEMP 36.7; O2SAT 100
--- NOTE | 2021-03-15 11:39 | PM.DCS ---
Discharge Providers Date of Admission: 03/13/21 14:07 Date of Discharge: March 15, 2021 Attending Provider at Admission: Ruthann Vasquez MD Attending Provider at Discharge: Magdiel Rosales MD Diagnoses at Discharge Discharge Diagnosis (1) Colitis: Status: Acute (2) Vomiting: Status: Acute Qualifiers: Nausea presence: with nausea Vomiting Intractability: intractable Vomiting type: unspecified Qualified Code(s): R11.2 - Nausea with vomiting, unspecified Reason for Visit Reason for Visit: N\V Hospital Course Hospital Course Karuna Craig is a 30 year old female medical non-smoker with no segment past medical history presented to hospital on March 13 after visiting to the ER for 3-day 16-year-old for abdominal pain.CT of the abdomen and pelvis performed on 03/11 and 03/12 had showed colitis in ascending and transverse colon. Was started on po cipro/flagyl yesterday however has been unable to keep any medeciation down due to vomiting. She was under the hospital for inability to take her oral medication and for dehydration. She was started on IV hydration, IV antibiotics and her diet was advanced gradually. Patient continued to improve and is currently tolerating well on full liquid diet. During admission she was found to have high blood pressure for which she was started on oral amlodipine. Patient is advised to follow-up with a primary care provider regularly. She is advised to continue taking amlodipine 5 mg daily and follow-up with a primary care provider for further adjustment of antihypertensives. She is advised to take full liquid diet for next 1 week and then begin advance gradually to brat and then to regular diet within next 2 weeks. She is also advised to take Cipro and Flagyl which are the antibiotics for next 1 week. She is advised to take multiple small meals. Physical Exam Narrative: EXAM NARRATIVE: General: No acute distress, AO x3 HEENT: PERRLA, pupils bilaterally equal and reactive Chest: Normal vesicular breath sounds, no added sounds, equal good air entry bilaterally CVS: S1-S2 regular, no murmurs, no tachycardia, no gallops, no rubs Abdomen: Soft, tenderness in lower quadrant, no organomegaly, bowel sounds present, hyperactive Neuro: No focal deficits, no facial deformity, AO x3, power 5/5 in all limbs Discharge Data Data Completed and Pending: Pending at discharge Category Date Time Status Enteric Parasite Panel by PCR Dalia ne Lab 03/13/21 09:06 Results Immunochemical Fe fabiola OCB Routine Lab 03/13/21 09:06 Results Lactoferrin Meet ne Lab 03/13/21 09:06 Results Labs from last 24 hours 03/15/21 04:57 Sodium 137 Potassium 3.7 Chloride 103 Carbon Dioxide 24 Anion Gap 13.7 BUN 5 L Creatinine 0.6 GFR Calculation 118.2 Glucose 99 Calculated Osmolal ity 281 L Calcium 8.4 L Total Bilirubin 0.8 AST 27 ALT 51 H Alkaline Phosphata se 56 Total Protein 6.6 Albumin 3.8 Globulin 2.8 Addt'l Data from Hospital Stay: Laboratory Results WBC 8.7 10^3/uL (4.0- 10.0) 03/14/21 05:26 RBC 4.32 10^6/uL (4.1 -5.3) 03/14/21 05:26 Hgb 12.7 g/dL (11.5-1 5.3) 03/14/21 05:26 Hct 38.9 % (37.0-47.0 ) 03/14/21 05:26 MCV 90.0 fl (81-99) 03/14/21 05:26 MCH 29.4 pg (28.0-34. 0) 03/14/21 05:26 MCHC 32.6 g/dL (30.0-3 6.0) 03/14/21 05:26 RDW 11.8 % (12.1-15.1 ) L 03/14/21 05:26 Plt Count 255 10^3/cmm (130 -400) 03/14/21 05:26 MPV 11.2 fL (7.4-10.4 ) H 03/14/21 05:26 Neut % (Auto) 73.3 % 03/14/21 05:26 Lymph % (Auto) 19.5 % 03/14/21 05:26 [place] % (Auto) 5.9 % 03/14/21 05:26 Eos % (Auto) 0.1 % 03/14/21 05:26 Baso % (Auto) 0.5 % 03/14/21 05:26 Neut # (Auto) 6.41 10^3/uL (1.8 -7.7) 03/14/21 05:26 Lymph # (Auto) 1.7 10^3/uL (0.8- 4.8) 03/14/21 05:26 [place] # (Auto) 0.5 10^3/uL (0.2- 0.9) 03/14/21 05:26 Eos # (Auto) 0.0 10^3/uL (0.0- 0.8) 03/14/21 05:26 Baso # (Auto) 0.0 10^3/uL (0.0- 0.1) 03/14/21 05:26 Nucleated RBC % (a uto) 0 % 03/14/21 05:26 Nucleated RBCs # 0.0 /100WBC 03/14/21 05:26 ESR 5 mm/hr (0-15) 03/13/21 05:20 Sodium 137 mmol/L (136-1 45) 03/15/21 04:57 Potassium 3.7 mmol/L (3.5-5 .1) 03/15/21 04:57 Chloride 103 mmol/L (98-10 7) 03/15/21 04:57 Carbon Dioxide 24 mmol/L (22-29) 03/15/21 04:57 Anion Gap 13.7 (5-19) 03/15/21 04:57 BUN 5 mg/dL (6-20) L 03/15/21 04:57 Creatinine 0.6 mg/dL (0.5-0. 9) 03/15/21 04:57 GFR Calculation 118.2 mL/min (90- 130) 03/15/21 04:57 Glucose 99 mg/dL (65-115) 03/15/21 04:57 Calculated Osmolal ity 281 mOsm/kg (285- 295) L 03/15/21 04:57 Calcium 8.4 mg/dL (8.5-10 .5) L 03/15/21 04:57 Total Bilirubin 0.8 mg/dL (0.15-1 .2) 03/15/21 04:57 AST 27 U/L (0-32) 03/15/21 04:57 ALT 51 U/L (0-33) H 03/15/21 04:57 Alkaline Phosphata se 56 IU/L (35-105) 03/15/21 04:57 C-Reactive Protein 0.7 mg/L (0.0-4.9 ) 03/13/21 05:20 Total Protein 6.6 g/dL (6.6-8.7 ) 03/15/21 04:57 Albumin 3.8 g/dL (3.5-5.2 ) 03/15/21 04:57 Globulin 2.8 g/dL (1.3-4.6 ) 03/15/21 04:57 Lipase 25 U/L (13-60) 03/13/21 05:20 SARS-CoV-2 Ag (Rap id) Negative (Negati ve) 03/13/21 10:00 Vitals: Last Vital Signs Temp 98.0 F 03/15/21 11:15 Pulse 62 03/15/21 11:15 Resp 20 H 03/15/21 11:15 BP 172/96 03/15/21 11:15 Pulse Ox 100 03/15/21 11:15 Discharge Plan Discharge Patient Disposition: Home Condition: Stable Prescriptions: New amlodipine 5 mg Tablet 5 mg PO DAILY 30 Days Qty: 30 RF: 0 ondansetron 4 mg tablet,disintegrating 4 mg PO Q8H PRN (Reason: nausea and vomiting) 5 Days Qty: 15 RF: 0 Continued ondansetron 4 mg tablet,disintegrating 4 mg PO Q6H PRN (Reason: nausea and vomiting) Qty: 14 RF: 0 metoclopramide HCl [Reglan] 10 mg tablet 10 mg PO Q6H PRN (Reason: nausea and vomiting) Qty: 20 RF: 0 metronidazole [Flagyl] 500 mg tablet 500 mg PO BID 7 Days Qty: 14 RF: 0 ciprofloxacin HCl [Cipro] 500 mg tablet 500 mg PO Q12H Qty: 14 RF: 0 Discontinued hydrocodone-acetaminophen 5-325 mg Tablet 1 tab PO Q6H MDD see pharmacy comment PRN (Reason: Pain) RF: 0 Discharge Orders: Discharge Order (Routine); Ordered 03/15/21 Ordered By: Magdiel Rosales Referrals: [facility] [Provider Group] ( ) [facility] [Provider Group] - 1-3 days ( . Please call on Wednesday. You can go in Wednesday-Wednesday for initial evaluation to determine what services would be beneficial. Please call to confirm the times. Once evaluated you will be scheduled with appropriate services to meet your needs.) Discharge Diet: Advance as tolerated and Full LIquid Discharge Activity: Resume usual activity Patient Instructions: Opioid Safety Activity Restrictions/Additional Instructions: Patient is advised to follow-up with a primary care provider regularly. She is advised to continue taking amlodipine 5 mg daily and follow-up with a primary care provider for further adjustment of antihypertensives. She is advised to take full liquid diet for next 1 week and then begin advance gradually to brat and then to regular diet within next 2 weeks. She is also advised to take Cipro and Flagyl which are the antibiotics for next 1 week. She is advised to take multiple small meals. Prefer to avoid using marijuana but if you come. Discharge Attestations Time Spent in Discharge Care*: greater than 30 min Specific Discharge Activities: educating patient, discussing with counter caser/social workers/dc planners, documenting/other paperwork and evaluating patient/reviewing data Status at Discharge: Cognitive status at discharge: cognitively intact, Behavioral status at discharge: cooperative, Functional status at discharge: independent ambulation Overall status at discharge: patient is progressing back to baseline Quality Metrics Clinical Quality Measures During this hospital stay, did patient experience: None Coding Level of Care Code Acute Chg FW DC note Diagnoses Colitis K52.9 Vomiting R11.2 Nausea presence: with nausea Vomiting Intractability: intractable Vomiting type: unspecified
[2021-03-15 12:50] VITALS: BP 172/96; PULSE 62; RESP 20; TEMP 36.7; O2SAT 100
--- NOTE | 2021-03-17 14:22 | PC.SOCIAL ---
discharge follow up call made, spoke with pt. patient given follow up appointment date and time with Elyse Lawrence. patient asked for me to also make her appointment with [facility]. Called [facility], they said pt could come over anytime today to start paperwork and then they would give her appointment date and time. attempted numerous times to call patient to give her this info. unable to reach patient, two voicemails left.
== END 2021-03-15 12:55 | disposition home or self-care (01) | DRG 392 ==
LOC: ER 06:05 → MEDSURG 07:16
PROVIDERS: Admitting Provider Student in an Organized Health Care Education/Training Program; Emergency Provider Emergency Medicine; Visit Provider Student in an Organized Health Care Education/Training Program
DX: K52.9 Noninfective gastroenteritis and colitis, unspecified (principal); F12.90 Cannabis use, unspecified, uncomplicated; E86.0 Dehydration; Z20.822 Contact with and (suspected) exposure to COVID-19; R11.15 Cyclical vomiting syndrome unrelated to migraine; R03.0 Elevated blood-pressure reading, without diagnosis of hypertension; F17.200 Nicotine dependence, unspecified, uncomplicated
CPT/HCPCS: 36415; 80053; 82274; 83630; 83690; 85025; 85651; 86140; 87426; 87493; 87506; 93005; 96361; 96374; 96375; 99285; G0378; J1200; J2060; J2270; J2405; J2543; J2550; J2765; J3490; J7030

== ENCOUNTER 2021-06-09 22:55 | Emergency (ER) | payer SELFPAY ==
[2021-06-09 23:01] VITALS: BP 140/85; PULSE 54; RESP 18; TEMP 36.6; O2SAT 100; BMI 24.0
[2021-06-09 23:05] VITALS: BP 140/85; PULSE 49; RESP 18; O2SAT 100
--- NOTE | 2021-06-09 23:26 | ED_ITS ---
HPI - Nausea/Vomiting/Diarrhea General: Chief complaint: Nausea/Vomiting/Diarrhea Stated complaint: n\v ADB Pain Time Seen by Provider: 06/09/21 23:26 History of Present Illness: HPI Narrative: 31-year-old female comes in today for complaints of nausea and vomiting since 4:00 this morning. Patient has a history of colitis and reports symptoms are similar to the time that she had colitis in March. Patient is alert and oriented. Patient reports occasio nal nicotine use, occasional cannabinoid use, denies alcohol or other drug use. Patient takes no routine medications. Review of the record patient had mild colitis back at the end of March. She was admitted to the hospital due to inability to hold down medications. Patient denies any fever today. Patient appears mildly unwell but not toxic. Associated nausea: Yes Associated symtoms: Reports nausea Review of Systems General: Reports: 10 or more systems reviewed and unremarkable except in HPI and below GI: Reports: nausea and vomiting [facility] ED PFSH: Social History Smoking and tobacco status: current every day smoker Alcohol intake: current Female Reproductive History: Date of last menstrual period: 03/11/21 Physical Exam Const: COMMON NORMALS: no acute distress and patient oriented x3 GENERAL APPEARANCE: cooperative HENMT: COMMON NORMALS: normocephalic and Normal external nose present HEAD & SCALP: normal to inspection and normocephalic NOSE: Normal external nose present MOUTH: Normal oral and palatal mucosa present THROAT: posterior oropharynx normal Eye: GENERAL EYE: appearance normal, both eyes and all related structures Neck/C-Spine: COMMON NORMALS: full ROM Chest: COMMONS NORMALS: normal inspection of the chest Resp: COMMON NORMALS: normal respiratory effort EFFORT & INSPECTION: Yes able to speak in complete sentences Cardio: COMMON NORMALS: regular rate and regular rhythm RATE: regular rate RHYTHM: regular rhythm GI: COMMON NORMALS: Soft to palpation AUSCULTATION: Yes Hyperactive bowel sounds present PALPATION: Yes Soft to palpation and Yes Tenderness to palpation present (GI) (generalized) : COMMON NORMALS: Yes no CVA tenderness BLADDER/KIDNEY EXAM: Yes no CVA t enderness Back/Pelvis: COMMON NORMALS: no CVA tenderness and thoracic and lumbar spine normal to inspection Extremity: COMMON NORMALS: normal to inspection Neuro: COMMON NORMALS: patient oriented x3 and moves all extremities Psych: COMMON NORMALS: mental status grossly normal and cooperative Skin: COMMON NORMALS: no rashes or lesions noted GENERAL SKIN EXAM: no rashes or lesions noted Course Vital Signs: Vital signs: Vital Signs Temperature 98 F 06/09/21 23:01 Pulse Rate 55 L 06/10/21 00:18 Respiratory Rate 16 06/10/21 00:18 Blood Pressure 135/76 06/10/21 00:18 Pulse Oximetry 98 06/10/21 00:18 MDM - Nausea/Vomiting/Diarrhea MDM Narrative: Medical decision making narrative: Patient comes in for persistent vomiting since 4:00 this morning. Patient was unable to control symptoms or hold down medications for nausea and vomiting. Patient has a history of colitis in March. Patient denies any diarrhea. Examination notes abdomen soft with hyperactive bowel sounds. No CVA tenderness. Lungs clear to auscultation. Vital signs are normal. Differential diagnosis includes gastritis, gastroenteritis, pancreatitis, colitis, cyclic vomiting syndrome. Laboratory values noted a 14,000 white count, patient's anion gap was elevated to 22, serum hCG was negative. I believe the patient probably has gastritis versus a cyclic vomiting syndrome. Patient was given 12-1/2 mg of Benadryl with 2-1/2 mg of Haldol which stopped vomiting and improved symptoms. Patient was given 2 L of IV fluid for dehydration. Reviewed exam with patient with recommendations of treatment. Patient reported understanding and agreed. Patient will be discharged home on famotidine 20 mg twice a day for 2 weeks and to use zofran 4 mg disintegrating tablets as needed for nausea or vomiting. Lab Data: Labs: Lab Results 06/09/21 06/09/21 06/09/21 23:55 23:55 23:55 WBC 14.4 10^3/uL H 10 ^3/uL (4.0-10.0) RBC 4.56 10^6/uL 10^6 /uL (4.1-5.3) Hgb 13.8 g/dL g/dL (11.5-15.3) Hct 40.1 % % (37.0-47.0) MCV 87.9 fl fl (81-99) MCH 30.3 pg pg (28.0-34.0) MCHC 34.4 g/dL g/dL (30.0-36.0) RDW 13.9 % % (12.1-15.1) Plt Count 305 10^3/cmm 10^3 /cmm (130-400) MPV 10.7 fL H fL (7.4-10.4) Neut % (Auto) 90.5 % % Lymph % (Auto) 5.6 % % [place] % (Auto) 3.4 % % Eos % (Auto) 0.0 % % Baso % (Auto) 0.1 % % Neut # (Auto) 13.05 10^3/uL H 1 0^3/uL (1.8-7.7) Lymph # (Auto) 0.8 10^3/uL 10^3/ uL (0.8-4.8) [place] # (Auto) 0.5 10^3/uL 10^3/ uL (0.2-0.9) Eos # (Auto) 0.0 10^3/uL 10^3/ uL (0.0-0.8) Baso # (Auto) 0.0 10^3/uL 10^3/ uL (0.0-0.1) Nucleated RBC % (a uto) 0 % % Nucleated RBCs # 0.0 /100WBC /100W BC Sodium 142 mmol/L mmol/L (136-145) Potassium 4.0 mmol/L mmol/L (3.5-5.1) Chloride 104 mmol/L mmol/L (98-107) Carbon Dioxide 20 mmol/L L mmol/ L (22-29) Anion Gap 22.0 H (5-19) BUN 15 mg/dL mg/dL (6-20) Creatinine 0.7 mg/dL mg/dL (0.5-0.9) GFR Calculation 98.3 mL/min mL/mi n (90-130) Glucose 156 mg/dL H mg/dL (65-115) Calculated Osmolal ity 298 mOsm/kg H mOs m/kg (285-295) Calcium 9.5 mg/dL mg/dL (8.5-10.5) Total Bilirubin 0.7 mg/dL mg/dL (0.15-1.2) AST 15 U/L U/L (0-32) ALT 12 U/L U/L (0-33) Alkaline Phosphata se 62 IU/L IU/L (35-105) Total Protein 7.8 g/dL g/dL (6.6-8.7) Albumin 4.6 g/dL g/dL (3.5-5.2) Globulin 3.2 g/dL g/dL (1.3-4.6) Lipase 11 U/L L U/L (13-60) HCG, Qual Negative (Negative) Discharge Plan Discharge Patient Disposition: Home Clinical Impression: Dehydration Vomiting Qualifiers: Vomiting type: unspecified Vomiting Intractability: non-intractable Nausea presence: with nausea Qualified Code(s): R11.2 - Nausea with vomiting, unspecified Condition: Stable Prescriptions: New famotidine 20 mg tablet 20 mg PO BID 14 Days Qty: 28 RF: 0 ondansetron 4 mg tablet,disintegrating 4 mg PO Q8H PRN (Reason: nausea and vomiting) Qty: 10 RF: 0 No Action ondansetron 4 mg tablet,disintegrating 4 mg PO Q6H PRN (Reason: nausea and vomiting) Qty: 14 RF: 0 metoclopramide HCl [Reglan] 10 mg tablet 10 mg PO Q6H PRN (Reason: nausea and vomiting) Qty: 20 RF: 0 ciprofloxacin HCl [Cipro] 500 mg tablet 500 mg PO Q12H Qty: 14 RF: 0 Discharge Orders: Discharge ED (Routine); Ordered 06/10/21 Ordered By: Ishaan Gutierrez Discharge Diet: Advance as tolerated Discharge Activity: Increase activity as tolerated Patient Instructions: Acute Nausea and Vomiting (ED), Opioid Safety Activity Restrictions/Additional Instructions: Home and rest. Take famotidine routinely twice a day to help with gastritis and nausea. Use ondansetron 4 mg every 8 hours as needed for breakthrough nausea and vomiting. Increase diet slowly over the next 24 to 48 hours. Start with clear liquids frequent sips flat beverages. Increase diet slowly to full liquids such as ice cream and cream soups over 24 hours. Then increase to a bland diet with foods like bananas, rice, apples, toast, boiled chicken over 48 to 72 hours. Avoid acidic and spicy foods for the next week. Follow-up with primary care as needed. Return to the ER for high fever greater than 100.4, worsening abdominal pain, blood in vomit or stool, or new concerns. Coding Level of Care Code ED Employment Instruction[employer] for [employer] Fwd Exam Comprehensive
[2021-06-09] MEDS: famotidine 20 mg/2 mL INJ 40 MG IVP (23:55)
[2021-06-09] MEDS: haloperidol inj 5 mg/mL INJ 1 mL 2.5 MG IVP (23:55)
[2021-06-09] MEDS: diphenhydrAMINE 50 mg/mL SDV 1mL 12.5 MG IVP (23:55)
[2021-06-10] LABS: Basophils % 0.1 %; Hematocrit 40.1 % (37.0-47.0); Hemoglobin 13.8 g/dL (11.5-15.3); Lymphocytes # 0.8 10^3/uL (0.8-4.8); Lymphocytes % 5.6 %; Mean Corpuscular HGB Conc 34.4 g/dL (30.0-36.0); Mean Corpuscular Hemoglobin 30.3 pg (28.0-34.0); Mean Corpuscular Volume 87.9 fl (81-99); Mean Platelet Volume 10.7 fL (7.4-10.4); Monocytes # 0.5 10^3/uL (0.2-0.9); Monocytes % 3.4 %; Neutrophils # 13.05 10^3/uL (1.8-7.7); Neutrophils % 90.5 %; Nucleated Red Blood Cells % 0 %; Platelet Count 305 10^3/cmm (130-400); Red Blood Count 4.56 10^6/uL (4.1-5.3); Red Cell Distribution Width 13.9 % (12.1-15.1); White Blood Count 14.4 10^3/uL (4.0-10.0)
[2021-06-10] MEDS: sodium chloride 0.9% 1,000 ML 999 ML IV ×2 (00:01→01:00)
[2021-06-10 00:18] VITALS: BP 135/76; PULSE 55; RESP 16; O2SAT 98
[2021-06-10 00:23] LABS: Alanine Aminotransferase 12 U/L (0-33); Albumin Level 4.6 g/dL (3.5-5.2); Alkaline Phosphatase 62 IU/L (35-105); Aspartate Amino Transferase 15 U/L (0-32); Blood Urea Nitrogen 15 mg/dL (6-20); Calcium 9.5 mg/dL (8.5-10.5); Carbon Dioxide 20 mmol/L (22-29); Chloride 104 mmol/L (98-107); Globulin 3.2 g/dL (1.3-4.6); Glomerular Filtration Rate 98.3 mL/min (90-130); Glucose 156 mg/dL (65-115); HCG, Serum Qual Negative (Negative); Lipase 11 U/L (13-60); Osmolality Calculated 298 mOsm/kg (285-295); Sodium 142 mmol/L (136-145); Total Bilirubin 0.7 mg/dL (0.15-1.2); Total Protein 7.8 g/dL (6.6-8.7)
[2021-06-10 02:01] VITALS: BP 123/70; PULSE 55; RESP 16; O2SAT 98
== END 2021-06-10 02:04 | disposition home or self-care (01) ==
PROVIDERS: Emergency Medicine; Emergency Provider Nurse Practitioner Family
DX: R11.2 Nausea with vomiting, unspecified (principal); E86.0 Dehydration; F17.210 Nicotine dependence, cigarettes, uncomplicated
CPT/HCPCS: 80053; 83690; 84703; 85025; 96361; 96374; 96375; 99284; J1200; J1630; J3490; J7030

== ENCOUNTER 2021-06-10 20:52 | Emergency (ER) | payer SELFPAY ==
[2021-06-10 21:00] VITALS: BP 160/75; PULSE 51; RESP 18; TEMP 36.3; O2SAT 100; BMI 24.0
--- NOTE | 2021-06-10 22:05 | CTR_ITS ---
PROCEDURE INFORMATION: Exam: CT Abdomen And Pelvis With Contrast Exam date and time: 06/10/2021 10:05 PM Age: 31 years old Clinical indication: Abdominal pain; Localized; Lower; Additional info: Abd pain TECHNIQUE: Imaging protocol: Computed tomography of the abdomen and pelvis with contrast. Radiation optimization: All CT scans at this facility use at least one of these dose optimization techniques: automated exposure control; mA and/or kV adjustment per patient size (includes targeted exams where dose is matched to clinical indication); or iterative reconstruction. Contrast material: OMNI 300; Contrast volume: 95 ml; Contrast route: INTRAVENOUS (IV); COMPARISON: CT abdomen pelvis w con* [id number] 03/12/2021 2:48 PM RADIATION DOSE METRICS: Total DLP (mGy-cm): 886.08 FINDINGS: Lungs: No significant acute finding. On axial image # 4, series 2, there is a 4 mm noncalcified nodule in the lateral left lower lobe. Small granuloma is likely. This is unchanged from the comparison exam, and also unchanged from and older comparison exam of 06/07/2017. Lack of growth in a 4 year interval would indicate a benign etiology, no follow-up needed. Liver: There is prominent periportal edema in the liver. This is a nonspecific finding, that can be seen in hepatitis and other hepatic abnormalities. It can also be a nonsignificant finding, sometimes seen in overhydration. Please correlate clinically. Gallbladder and bile ducts: No definite gallbladder abnormality by CT. Ultrasound would be more sensitive for detecting gallstones, if clinically needed. No biliary tree dilation. Pancreas: Unremarkable. Spleen: Unremarkable. Adrenal glands: Unremarkable. Kidneys and ureters: No hydronephrosis of either kidney. No visible ureteral calculus. 6 mm possible cyst in the lateral mid left kidney, unchanged. This is too small to accurately characterize by CT. The kidneys otherwise enhance homogeneously. No perinephric fluid. Stomach and bowel: No significant bowel distention. There are no CT findings to strongly suggest diverticulitis or colitis. Negative CT does not entirely exclude colitis, so follow-up may be helpful, as clinically directed. Appendix: The appendix is possibly identified, and there are no strongly suspicious findings for appendicitis. No pericecal inflammatory changes are seen. Intraperitoneal space: No free intraperitoneal air, or ascites. Vasculature: No evidence for abdominal aortic aneurysm. Lymph nodes: No retroperitoneal adenopathy. Urinary bladder: Possibly some mild diffuse urinary bladder wall thickening. However, evaluation is limited, as the bladder is not well distended. While nonspecific, this could indicate evidence for cystitis. Please correlate clinically. Reproductive: No definite abnormal ovarian/adnexal cyst or mass by CT. Bones/joints: No significant acute finding. Soft tissues: No significant acute finding. CT/CT abdomen pelvis w con* [id number] IMPRESSION: 1. No free air or bowel distention. 2. No evidence for appendicitis. 3. No findings to strongly suggest diverticulitis or colitis, see above. 4. Periportal edema in the liver, see above. 5. Possible mild urinary bladder wall thickening, see above. 6. Other findings discussed above.
--- NOTE | 2021-06-10 22:08 | W.ED.ABDPA2 ---
HPI - Abdominal Pain General: Chief Complaint: Abdominal Pain Stated Complaint: nausea, vomiting Time Seen by Provider: 06/10/21 21:59 Source: patient Mode of arrival: ambulatory Limitations: no limitations History of Present Illness: HPI narrative: 31-year-old female with a history of cyclical vomiting syndrome was seen here yesterday for vomiting states that she is continue to have vomiting at home she prescribe Zofran states it helped very little she has had diffuse abdominal cramping denies any worsening or improving factors she denies any diarrhea denies any fever her pain currently is a 4 out of 10. Associated Symptoms: Reports nausea and vomiting; Denies chills, dysuria and fever(s) Related Data: Date of Last Menstrual Period: 03/11/21 Review of Systems Const: Denies: fever(s), chills, body aches or change in appetite Eyes: Denies: blurry vision or eye discomfort ENMT: Denies: throat pain or dental pain Card: Denies: chest pain Resp: Denies: dyspnea GI: Reports: abdominal pain, nausea and vomiting : Denies: dysuria Musc: Denies: neck pain or back pain Skin/Breast: Denies: rash Neuro: Denies: headache(s) Psych: Denies: depression Jarrod/Lymph: Denies: easy bruising All/Imm: Denies: urticaria PFSH ED PFSH: Social History Smoking and tobacco status: current every day smoker Alcohol intake: current Female Reproductive History: Date of last menstrual period: 03/11/21 Physical Exam Const: COMMON NORMALS: no acute distress, patient oriented x3 and healthy appearing HENMT: COMMON NORMALS: normocephalic and atraumatic HEAD & SCALP: normocephalic and atraumatic Eye: COMMON NORMALS: Equal, round and reactive pupils present and EOMs intact bilaterally PUPIL: Yes Equal, round and reactive pupils present Neck/C-Spine: COMMON NORMALS: full ROM and supple Chest: COMMONS NORMALS: normal inspection of the chest and normal palpation of entire chest wall Resp: COMMON NORMALS: normal respiratory effort, No retractions, No use of accessory muscles and clear to auscultation bilaterally AUSCULTATION: clear to auscultation bilaterally Cardio: COMMON NORMALS: regular rate, regular rhythm and No murmurs present (Cardio) RATE: regular rate RHYTHM: regular rhythm GI: COMMON NORMALS: Normal to inspection, nondistended, normoactive bowel sounds present, Soft to palpation, non-tender and no masses PALPATION: Yes Soft to palpation Extremity: COMMON NORMALS: normal to inspection and full ROM Neuro: COMMON NORMALS: patient oriented x3, moves all extremities and no focal motor deficits Psych: COMMON NORMALS: mental status grossly normal, Normal thought process present and cooperative THOUGHT PROCESS: Normal thought process present Skin: COMMON NORMALS: no rashes or lesions noted and no wounds GENERAL SKIN EXAM: no rashes or lesions noted Course Vital Signs: Vital signs: Vital Signs Temperature 97.4 F L 06/10/21 21:00 Pulse Rate 77 06/10/21 23:58 Respiratory Rate 16 06/10/21 23:58 Blood Pressure 160/75 06/10/21 21:00 Pulse Oximetry 97 06/10/21 23:58 MDM - Abdominal Pain MDM Narrative: Medical decision making narrative: Patient presents here with cyclical vomiting syndrome with vomiting patient's CT and blood work here showed no acute abnormalities she feels much improved here after the Reglan and Benadryl will prescribe her Reglan for home she is to follow-up with PCP and return if worsening she understands agrees to plan. Lab Data: Labs: Lab Results 06/10/21 06/10/21 06/10/21 21:46 22:10 22:10 WBC 13.1 10^3/uL H 10 ^3/uL (4.0-10.0) RBC 4.11 10^6/uL 10^6 /uL (4.1-5.3) Hgb 12.5 g/dL g/dL (11.5-15.3) Hct 37.6 % % (37.0-47.0) MCV 91.5 fl fl (81-99) MCH 30.4 pg pg (28.0-34.0) MCHC 33.2 g/dL g/dL (30.0-36.0) RDW 13.9 % % (12.1-15.1) Plt Count 260 10^3/cmm 10^3 /cmm (130-400) MPV 11.0 fL H fL (7.4-10.4) Neut % (Auto) 86.6 % % Lymph % (Auto) 9.3 % % Mower % (Auto) 3.5 % % Eos % (Auto) 0.0 % % Baso % (Auto) 0.2 % % Neut # (Auto) 11.35 10^3/uL H 1 0^3/uL (1.8-7.7) Lymph # (Auto) 1.2 10^3/uL 10^3/ uL (0.8-4.8) Mower # (Auto) 0.5 10^3/uL 10^3/ uL (0.2-0.9) Eos # (Auto) 0.0 10^3/uL 10^3/ uL (0.0-0.8) Baso # (Auto) 0.0 10^3/uL 10^3/ uL (0.0-0.1) Nucleated RBC % (a uto) 0 % % Nucleated RBCs # 0.0 /100WBC /100W BC Sodium 140 mmol/L mmol/L (136-145) Potassium 3.5 mmol/L mmol/L (3.5-5.1) Chloride 105 mmol/L mmol/L (98-107) Carbon Dioxide 20 mmol/L L mmol/ L (22-29) Anion Gap 18.5 (5-19) BUN 13 mg/dL mg/dL (6-20) Creatinine 0.6 mg/dL mg/dL (0.5-0.9) GFR Calculation 117.4 mL/min mL/m in (90-130) Glucose 144 mg/dL H mg/dL (65-115) Calculated Osmolal ity 293 mOsm/kg mOsm/ kg (285-295) Calcium 8.6 mg/dL mg/dL (8.5-10.5) Total Bilirubin 0.6 mg/dL mg/dL (0.15-1.2) AST 18 U/L U/L (0-32) ALT 21 U/L U/L (0-33) Alkaline Phosphata se 52 IU/L IU/L (35-105) Total Protein 6.6 g/dL g/dL (6.6-8.7) Albumin 4.2 g/dL g/dL (3.5-5.2) Globulin 2.4 g/dL g/dL (1.3-4.6) Lipase 20 U/L U/L (13-60) HCG, Qual Urine Color Yellow (Yellow) Urine Appearance Cloudy (CLEAR) Urine pH 5 (5-7) Ur Specific Gravit y 1.030 (1.005-1.030) Urine Protein 1+ H (Negative) Urine Glucose (UA) Norm (Normal) Urine Ketones 2+ H (Negative) Urine Blood 2+ H (Negative) Urine Nitrate Negative (Negative) Urine Bilirubin 1+ H (Negative) Urine Urobilinogen 1 mg/dL H mg/dL (Negative) Ur Leukocyte [place] ase Negative (Negative) Urine RBC 0-4 /hpf H /hpf (0-2) Urine WBC 0-4 /hpf H /hpf (0-5) Ur Squamous Epith Cells 0-4 /hpf H /hpf (0-5) Calcium Oxalate Cr ystal Assistant Prosecuting Attorney Amorphous Sediment Not Reportable Urine Bacteria Trace /hpf /hpf (NONE) Hyaline Casts 0-4 /lpf H /lpf Urine Mucus 3+ /hpf /hpf 06/10/21 22:10 WBC RBC Hgb Hct MCV MCH MCHC RDW Plt Count MPV Neut % (Auto) Lymph % (Auto) Mower % (Auto) Eos % (Auto) Baso % (Auto) Neut # (Auto) Lymph # (Auto) Mower # (Auto) Eos # (Auto) Baso # (Auto) Nucleated RBC % (a uto) Nucleated RBCs # Sodium Potassium Chloride Carbon Dioxide Anion Gap BUN Creatinine GFR Calculation Glucose Calculated Osmolal ity Calcium Total Bilirubin AST ALT Alkaline Phosphata se Total Protein Albumin Globulin Lipase HCG, Qual Negative (Negative) Urine Color Urine Appearance Urine pH Ur Specific Gravit y Urine Protein Urine Glucose (UA) Urine Ketones Urine Blood Urine Nitrate Urine Bilirubin Urine Urobilinogen Ur Leukocyte Enid ase Urine RBC Urine WBC Ur Squamous Epith Cells Calcium Oxalate Cr ystal Amorphous Sediment Urine Bacteria Hyaline Casts Urine Mucus Discharge Plan Discharge Patient Disposition: Home Clinical Impression: Cyclical vomiting Condition: Stable Prescriptions: Continued Reglan 10 mg tablet 10 mg PO Q6H PRN (Reason: nausea and vomiting) Qty: 20 RF: 0 No Action ondansetron 4 mg tablet,disintegrating 4 mg PO Q6H PRN (Reason: nausea and vomiting) Qty: 14 RF: 0 ciprofloxacin HCl [Cipro] 500 mg tablet 500 mg PO Q12H Qty: 14 RF: 0 famotidine 20 mg tablet 20 mg PO BID 14 Days Qty: 28 RF: 0 ondansetron 4 mg tablet,disintegrating 4 mg PO Q8H PRN (Reason: nausea and vomiting) Qty: 10 RF: 0 Discharge Orders: Discharge ED (Routine); Ordered 06/10/21 Ordered By: León Masters Discharge Diet: Advance as tolerated Discharge Activity: Resume usual activity Patient Instructions: Acute Nausea and Vomiting (ED) Coding Level of Care Code 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
[2021-06-10 22:18] LABS: Add Urine Microscopic? YES; Blood Urine 2+ (Negative); Glucose Urine UA Norm (Normal); Leukocyte Esterase Urine Negative (Negative); Nitrate Urine Negative (Negative); Urine Color Yellow (Yellow); pH Urine 5 (5-7)
[2021-06-10 22:19] LABS: Add Urine Culture? No; Bacteria Urine TRACE /hpf; Hyaline Casts Urine 0-4 /lpf; Mucus Urine 3+ /hpf; RBC Urine 0-4 /hpf (0-2); Urine Appearance Cloudy (CLEAR); WBC Urine 0-4 /hpf (0-5)
[2021-06-10 22:20] LABS: Bilirubin Urine 1+ (Negative); Ketones Urine 2+ (Negative); Protein Urine 1+ (Negative); Urobilinogen Urine 1 mg/dL (Negative)
[2021-06-10 22:21] LABS: Squamous Epithelial Cell Urine 0-4 /hpf (0-5)
[2021-06-10] MEDS: iohexol 300 mg/mL 100 mL Btl IV (22:28)
[2021-06-10 22:34] LABS: Basophils % 0.2 %; Hematocrit 37.6 % (37.0-47.0); Hemoglobin 12.5 g/dL (11.5-15.3); Lymphocytes # 1.2 10^3/uL (0.8-4.8); Lymphocytes % 9.3 %; Mean Corpuscular HGB Conc 33.2 g/dL (30.0-36.0); Mean Corpuscular Hemoglobin 30.4 pg (28.0-34.0); Mean Corpuscular Volume 91.5 fl (81-99); Monocytes # 0.5 10^3/uL (0.2-0.9); Monocytes % 3.5 %; Neutrophils # 11.35 10^3/uL (1.8-7.7); Neutrophils % 86.6 %; Nucleated Red Blood Cells % 0 %; Platelet Count 260 10^3/cmm (130-400); Red Blood Count 4.11 10^6/uL (4.1-5.3); Red Cell Distribution Width 13.9 % (12.1-15.1); White Blood Count 13.1 10^3/uL (4.0-10.0)
[2021-06-10 22:47] LABS: HCG, Serum Qual Negative (Negative)
[2021-06-10] MEDS: sodium chloride 0.9% 1,000 ML 999 ML IV ×2 (22:49→22:50)
[2021-06-10] MEDS: metoclopramide 5 mg/mL SDV 2 mL 10 MG IVP (22:51)
[2021-06-10] MEDS: diphenhydrAMINE 50 mg/mL SDV 1mL IVP (22:51)
[2021-06-10] MEDS: LORazepam 2 mg/mL INJ 1 mL 1 MG IVP (22:51)
[2021-06-10 22:54] LABS: Alanine Aminotransferase 21 U/L (0-33); Albumin Level 4.2 g/dL (3.5-5.2); Alkaline Phosphatase 52 IU/L (35-105); Anion Gap 18.5 (5-19); Aspartate Amino Transferase 18 U/L (0-32); Blood Urea Nitrogen 13 mg/dL (6-20); Calcium 8.6 mg/dL (8.5-10.5); Carbon Dioxide 20 mmol/L (22-29); Chloride 105 mmol/L (98-107); Globulin 2.4 g/dL (1.3-4.6); Glomerular Filtration Rate 117.4 mL/min (90-130); Glucose 144 mg/dL (65-115); Lipase 20 U/L (13-60); Osmolality Calculated 293 mOsm/kg (285-295); Potassium 3.5 mmol/L (3.5-5.1); Sodium 140 mmol/L (136-145); Total Bilirubin 0.6 mg/dL (0.15-1.2); Total Protein 6.6 g/dL (6.6-8.7)
[2021-06-10 23:58] VITALS: PULSE 77; RESP 16; O2SAT 97
== END 2021-06-10 23:59 | disposition home or self-care (01) ==
PROVIDERS: Emergency Provider Emergency Medicine
DX: R11.15 Cyclical vomiting syndrome unrelated to migraine (principal); F17.210 Nicotine dependence, cigarettes, uncomplicated
CPT/HCPCS: 74177; 80053; 81001; 83690; 84703; 85025; 96361; 96374; 96375; 99283; J1200; J2060; J2765; J7030; Q9967

== ENCOUNTER → 2021-07-29 15:19 | Outpatient (BNVA) | payer OTHER, SELFPAY | PROVIDERS: Visit Provider Nurse Practitioner Family | DX: Z20.822 Contact with and (suspected) exposure to COVID-19 (principal) | CPT/HCPCS: 87635 ==

== ENCOUNTER 2021-09-04 05:54 | Emergency (ER) | payer OTHER, SELFPAY ==
[2021-09-04 05:58] VITALS: BP 156/114; PULSE 78; RESP 22; TEMP 36.7; O2SAT 99; BMI 23.3
--- NOTE | 2021-09-04 06:10 | ED_ITS ---
HPI - Dental/Oral General: Chief complaint: Dental/Oral Stated complaint: TOOTH PAIN Time Seen by Provider: 09/04/21 06:08 Source: patient Mode of arrival: ambulatory Limitations: no limitations History of Present Illness: 31-year-old female presents emergency room with complaints of left posterior mandibular pain for the last several days. She made an appointment to see a dentist but the appointment is not for another 6 days pain is rapidly progressed. She has been able to swallow and breathe wit hout difficulty but has significant discomfort from the dental carry. She had been using ibuprofen is no longer been managing her pain. Teeth map: 1. Onset (ago): day(s) Duration: constant Severity: moderate Relieving factors: nothing Exacerbating factors: nothing Context: history of dental caries Associated symptoms: Denies ear or mastoid pain, fever(s), gum swelling, odynophagia, sore throat or tongue swelling Treatment prior to arrival: none Review of Systems Const: Denies: fever(s) ENMT: Reports: dental pain; Denies: odynophagia, oral sores, ear or mastoid pain or tinnitus Card: Denies: chest pain, edema, dyspnea on exertion or orthopnea Resp: Denies: dyspnea, productive cough or non-productive cough GI: Denies: abdominal pain, nausea, vomiting, hematemesis, coffee ground emesis, diarrhea, constipation, bloating, hematochezia or melena : Denies: flank pain, difficulty voiding, dysuria, urinary frequency or urinary urgency Skin/Breast: Denies: rash or pruritus All/Imm: Denies: tongue swelling [facility] ED PFSH: Medical History (Updated 09/04/21 @ 07:49 by Nathan Cotton DO) Colitis Surgical History (Updated 09/04/21 @ 07:49 by Nathan Cotton DO) No significant past surgical history Social History Smoking and tobacco status: current every day smoker Alcohol intake: current Female Reproductive History: Date of last menstrual period: 03/11/21 Physical Exam Const: EXAM LIMITATIONS: altered mental status GENERAL APPEARANCE: cooperative and comfortable ORIENTATION/CONSCIOUSNESS: Yes awake, Yes oriented to person, Yes oriented to place and Yes oriented to time HENMT: COMMON NORMALS: normocephalic, atraumatic and hearing grossly normal bilaterally HEAD & SCALP: normocephalic and atraumatic TEETH & GINGIVA: Yes caries TEETH & GINGIVA IMAGES: 1. 2. Neck/C-Spine: COMMON NORMALS: no JVD Resp: COMMON NORMALS: normal respiratory effort, No retractions, No use of accessory muscles and clear to auscultation bilaterally AUSCULTATION: clear to auscultation bilaterally Cardio: COMMON NORMALS: no JVD, regular rate, regular rhythm and No murmurs present (Cardio) RATE: regular rate RHYTHM: regular rhythm GI: COMMON NORMALS: Soft to palpation and No hepatosplenomegaly present AUSCULTATION: Yes normoactive bowel sounds PALPATION: Yes Soft to palpation, No Tenderness to palpation present (GI), No Guarding due to palpation present (GI) and Yes No hepatosplenomegaly present Extremity: COMMON NORMALS: normal to inspection, capillary refill normal, no clubbing, cyanosis or edema, no calf tenderness and no pedal edema Neuro: SENSORIUM/ORIENTATION: Yes oriented to person, Yes oriented to place and Yes oriented to time Skin: COMMON NORMALS: no rashes or lesions noted GENERAL SKIN EXAM: no rashes or lesions noted Course Vital Signs: Vital signs: Vital Signs Temperature 98.1 F 09/04/21 05:58 Pulse Rate 78 09/04/21 05:58 Respiratory Rate 22 H 09/04/21 05:58 Blood Pressure 156/114 09/04/21 05:58 Pulse Oximetry 99 09/04/21 05:58 MDM - Dental/Oral Medical Decision Making Dental caries. Discharge home with pain medications Augmentin 500 3 times daily x7 days patient is encouraged received dentist as soon as she is able. There is no submandibular swelling no cervical or submandibular lymphadenopathy. No difficulty with speech or swallowing Medical Records I reviewed the patient's medical records. Lab Data I reviewed the patient's lab results. Discharge Plan Discharge Patient Disposition: Home Clinical Impression: Dental caries Condition: Stable Prescriptions: New hydrocodone-acetaminophen 5-325 mg tablet 1 tab PO Q6H PRN (Reason: pain) Qty: 15 0RF Augmentin 500-125 mg tablet 1 tab PO TID Qty: 21 0RF No Action Reglan 10 mg tablet 10 mg PO Q6H PRN (Reason: nausea and vomiting) Qty: 20 0RF Discharge Orders: Discharge ED (Routine); Ordered 09/04/21 Ordered By: Nathan Cotton Patient Instructions: Opioid Safety Activity Restrictions/Additional Instructions: Follow-up with a dentist as soon as you are able. Coding Level of Care Code ED Special Officer Automat for [place]
[2021-09-04] MEDS: ketorolac 60 mg/2 mL INJ IM (06:31)
== END 2021-09-04 07:05 | disposition home or self-care (01) ==
PROVIDERS: Emergency Provider Family Medicine
DX: K02.9 Dental caries, unspecified (principal); F17.210 Nicotine dependence, cigarettes, uncomplicated
CPT/HCPCS: 96372; 99283; J1885

== ENCOUNTER 2021-09-08 12:12 | Emergency (ER) | payer OTHER, SELFPAY ==
[2021-09-08 12:29] VITALS: BP 128/78; PULSE 53; RESP 20; TEMP 36.4; O2SAT 100; BMI 23.1
[2021-09-08 12:34] VITALS: BP 131/108; PULSE 42; RESP 18; O2SAT 100
--- NOTE | 2021-09-08 12:48 | ED_ITS ---
HPI - General Adult General: Chief complaint: Nausea/Vomiting/Diarrhea Stated complaint: N/V, abd pain Time Seen by Provider: 09/08/21 12:36 History of Present Illness: Patient is a 31-year-old female with history of chronic cyclic vomiting, occasional marijuana use who presents emergency room with nausea and vomiting and left upper quadrant dull pain since 430 this morning. Patient tells me that she woke up this morning and has been throwing up. Patient reports more than 10 episodes of vomiting since this morning. Patient denies any hemoptysis, coffee-ground emesis, melena/hematochezia. Patient has no prior abdominal surgeries. Patient has known history of cyclic vomiting. Patient denies any increased marijuana use recently. Patient denies any diarrhea, complaints, history of renal colic, or current . Patient is also denies any new vaginal discharge Onset: 4:30am Duration:ongoing Location:home Severity:moderate Associated symptoms: Reports nausea and vomiting; Deny chest pain, dyspnea, rash or palpitations Review of Systems Const: Denies: fever(s) or chills Eyes: Denies: change in vision ENMT: Denies: mouth pain Card: Denies: chest pain or palpitations Resp: Denies: dyspnea or non-productive cough GI: Reports: abdominal pain, nausea and vomiting; Denies: diarrhea : Denies: dysuria Musc: Denies: extremity pain Skin/Breast: Denies: rash or new lesions Neuro: Denies: weakness in extremities Psych: Reports: other (Normal mood) Jarrod/Lymph: Denies: easy bruising PFS ED PFSH: Medical History (Updated 09/08/21 @ 12:49 by Kristen Reyes MD) Colitis Cyclical vomiting Surgical History (Updated 09/04/21 @ 07:49 by Nathan Cotton DO) No significant past surgical history Social History (Updated 09/08/21 @ 12:49 by Kristen Reyes MD) Smoking and tobacco status: current every day smoker Alcohol intake: current Substance/Drug Use: current Other substance/drug use details: +marijuana Female Reproductive History: Date of last menstrual period: 03/11/21 Physical Exam Const: COMMON NORMALS: alert HENMT: COMMON NORMALS: atraumatic HEAD & SCALP: atraumatic MOUTH: moist mucous membranes abnormal Eye: COMMON NORMALS: EOMs intact bilaterally and conjunctivae normal CONJUNCTIVA: Yes conjunctivae normal Neck/C-Spine: COMMON NORMALS: full ROM and supple Resp: COMMON NORMALS: normal respiratory effort and clear to auscultation bilaterally AUSCULTATION: clear to auscultation bilaterally Cardio: COMMON NORMALS: regular rate RATE: regular rate GI: COMMON NORMALS: Soft to palpation PALPATION: Yes Soft to palpation OTHER: +LUQ focal TTP. NO guarding rebound, guarding, rigidity. No CVA tenderness to percussion. Neg Cleaning/Neg McBurney's point tenderness, no suprabupic tenderness to palpation. Extremity: COMMON NORMALS: full ROM Neuro: SENSORIUM/ORIENTATION: Yes alert MOTOR EXAM: No Abnormal motor strength present and Other motor observations present (no focal motor deficits) Psych: COMMON NORMALS: speech normal SPEECH: Yes normal speech MOOD & AFFECT: Yes euthymic mood Course Vital Signs: Vital signs: Vital Signs Temperature 98.1 F 09/08/21 14:37 Pulse Rate 41 L 09/08/21 14:37 Respiratory Rate 18 09/08/21 14:37 Blood Pressure 151/68 09/08/21 14:37 Pulse Oximetry 96 09/08/21 14:37 MDM - General Adult Medical Decision Making 31-year-old female with history of cyclic vomiting, recent marijuana use who presents emergency room for evaluation of acute onset of abdominal pain since 430 this morning. On exam, patient appears to be dry. Vitals within normal limits. + Left upper quadrant tenderness to palpation. No guarding or rebound tenderness Minimal leukocytosis similar to baseline. Preg negative. Lipase wnl. Patient received Zofran, IVF, Benadryl, with with significant improvement symptoms of vomiting and abdominal pain. Patient is able to tolerate p.o. without any difficulty after medication. Given improvement, unchanged WBC compared to prior, LUQ abd and significant improvement after medication, I do not suspect other ac jose intra-abdominal pathology including SBO, biliary pathology, appendicitis, diverticulitis, or other emergent condition requiring surgery. I have given patient follow up with our rn case manager to be seen by our outpatient GI evaluation with Dr. Pereyra. Patient aware of a call from our rn case manager to schedule for appointment(s) and verbalizes understanding of the importance of following up. Rx tylenol PRN abd pain, maalox/pepcid PRN dyspepsia, and zofran PRN nausea/vomiting Disposition: Discharge. Patient counseled regarding diagnostic impression, treatment plan. Patient given ED strict return precautions to return for continuation, worsening, or development of new symptoms. Instructed to f/u w/ PCP regarding symptoms today. Patient verbalized understanding. Lab Data : 09/08/21 13:08 09/08/21 13:08 Laboratory Results WBC 12.0 10^3/uL (4.0-10.0) H 09/08/21 13:08 RBC 4.52 10^6/uL (4.1-5.3) 09/08/21 13:08 Hgb 13.4 g/dL (11.5-15.3) 09/08/21 13:08 Hct 41.5 % (37.0-47.0) 09/08/21 13:08 MCV 91.8 fl (81-99) 09/08/21 13:08 MCH 29.6 pg (28.0-34.0) 09/08/21 13:08 MCHC 32.3 g/dL (30.0-36.0) 09/08/21 13:08 RDW 13.3 % (12.1-15.1) 09/08/21 13:08 Plt Count 285 10^3/cmm (130-400) 09/08/21 13:08 MPV 10.8 fL (7.4-10.4) H 09/08/21 13:08 Neut % (Auto) 91.7 % 09/08/21 13:08 Lymph % (Auto) 6.7 % 09/08/21 13:08 [place] % (Auto) 0.8 % 09/08/21 13:08 Eos % (Auto) 0.0 % 09/08/21 13:08 Baso % (Auto) 0.2 % 09/08/21 13:08 Neut # (Auto) 11.03 10^3/uL (1.8-7.7) H 09/08/21 13:08 Lymph # (Auto) 0.8 10^3/uL (0.8-4.8) 09/08/21 13:08 [place] # (Auto) 0.1 10^3/uL (0.2-0.9) L 09/08/21 13:08 Eos # (Auto) 0.0 10^3/uL (0.0-0.8) 09/08/21 13:08 Baso # (Auto) 0.0 10^3/uL (0.0-0.1) 09/08/21 13:08 Nucleated RBC % (auto) 0 % 09/08/21 13:08 Nucleated RBCs # 0.0 /100WBC 09/08/21 13:08 Sodium 139 mmol/L (136-145) 09/08/21 13:08 Potassium 4.1 mmol/L (3.5-5.1) 09/08/21 13:08 Chloride 103 mmol/L (98-107) 09/08/21 13:08 Carbon Dioxide 23 mmol/L (22-29) 09/08/21 13:08 Anion Gap 17.1 (5-19) 09/08/21 13:08 BUN 14 mg/dL (6-20) 09/08/21 13:08 Creatinine 0.5 mg/dL (0.5-0.9) 09/08/21 13:08 GFR Calculation 144.9 mL/min (90-130) H 09/08/21 13:08 Glucose 149 mg/dL (65-115) H 09/08/21 13:08 Calculated Osmolality 291 mOsm/kg (285-295) 09/08/21 13:08 Calcium 8.5 mg/dL (8.5-10.5) 09/08/21 13:08 Total Bilirubin 0.4 mg/dL (0.15-1.2) 09/08/21 13:08 AST 11 U/L (0-32) 09/08/21 13:08 ALT 13 U/L (0-33) 09/08/21 13:08 Alkaline Phosphatase 58 IU/L (35-105) 09/08/21 13:08 Total Protein 7.2 g/dL (6.6-8.7) 09/08/21 13:08 Albumin 4.7 g/dL (3.5-5.2) 09/08/21 13:08 Globulin 2.5 g/dL (1.3-4.6) 09/08/21 13:08 Lipase 13 U/L (13-60) 09/08/21 13:08 Urine Color Yellow (Yellow) 09/08/21 13:24 Urine Appearance Cloudy (CLEAR) 09/08/21 13:24 Urine pH 8 (5-7) H 09/08/21 13:24 Ur Specific [place] 1.010 (1.005-1.030) 09/08/21 13:24 Urine Protein Neg (Negative) 09/08/21 13:24 Urine Glucose (UA) Norm (Normal) 09/08/21 13:24 Urine Ketones 2+ (Negative) H 09/08/21 13:24 Urine Blood Neg (Negative) 09/08/21 13:24 Urine Nitrate Negative (Negative) 09/08/21 13:24 Urine Bilirubin Neg (Negative) 09/08/21 13:24 Prot Sulfosalicylic Acd Negative (Negative) 09/08/21 13:24 Urine Urobilinogen Norm mg/dL (Negative) 09/08/21 13:24 Ur Leukocyte Esterase Trace (Negative) H 09/08/21 13:24 Urine RBC None /hpf (0-2) 09/08/21 13:24 Urine WBC 0-4 /hpf (0-5) H 09/08/21 13:24 Ur Squamous Epith Cells 5-10 /hpf (0-5) H 09/08/21 13:24 Amorphous Sediment 3+ /hpf 09/08/21 13:24 Urine Bacteria Trace /hpf (NONE) 09/08/21 13:24 Urine HCG, Qual Negative (Negative) 09/08/21 13:24 Discharge Plan Discharge Patient Disposition: Home Clinical Impression: Nausea & vomiting Condition: Stable Prescriptions: New Zofran 4 mg tablet 4 mg PO TID PRN (Reason: nausea and vomiting) 4 Days Qty: 12 0RF Pepcid 20 mg tablet 20 mg PO BID PRN (Reason: abdominal pain) 10 Days Qty: 20 0RF Maalox Advanced 1,000-60 mg tablet,chewable 1 tab PO TID PRN (Reason: abdominal pain) 7 Days Qty: 21 0RF acetaminophen 500 mg tablet 500 mg PO Q6H PRN (Reason: pain) 5 Days Qty: 20 0RF No Action Reglan 10 mg tablet 10 mg PO Q6H PRN (Reason: nausea and vomiting) Qty: 20 0RF hydrocodone-acetaminophen 5-325 mg tablet 1 tab PO Q6H PRN (Reason: pain) Qty: 15 0RF Augmentin 500-125 mg tablet 1 tab PO TID Qty: 21 0RF Discharge Orders: Discharge ED (Routine); Ordered 09/08/21 Ordered By: Kristen Reyes Discharge Diet: Advance as tolerated Discharge Activity: Increase activity as tolerated Patient Instructions: Abdominal Pain (ED) Activity Restrictions/Additional Instructions: Please come back if you have any worsening abdominal pain, fever or chills, nausea or vomiting, diarrhea, blood in the stool, inability hold down liquid or solids, or any new concerning complaints. 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
[2021-09-08] MEDS: haloperidol inj 5 mg/mL INJ 1 mL IVP (13:17)
[2021-09-08] MEDS: ondansetron 2 mg/ML SDV 2 mL 4 MG IVP (13:18)
[2021-09-08] MEDS: famotidine 20 mg/2 mL INJ IVP (13:18)
[2021-09-08] MEDS: diphenhydrAMINE 50 mg/mL SDV 1mL IVP (13:18)
[2021-09-08 13:22] LABS: Basophils % 0.2 %; Hematocrit 41.5 % (37.0-47.0); Hemoglobin 13.4 g/dL (11.5-15.3); Lymphocytes # 0.8 10^3/uL (0.8-4.8); Lymphocytes % 6.7 %; Mean Corpuscular HGB Conc 32.3 g/dL (30.0-36.0); Mean Corpuscular Hemoglobin 29.6 pg (28.0-34.0); Mean Corpuscular Volume 91.8 fl (81-99); Mean Platelet Volume 10.8 fL (7.4-10.4); Monocytes # 0.1 10^3/uL (0.2-0.9); Monocytes % 0.8 %; Neutrophils # 11.03 10^3/uL (1.8-7.7); Neutrophils % 91.7 %; Nucleated Red Blood Cells % 0 %; Platelet Count 285 10^3/cmm (130-400); Red Blood Count 4.52 10^6/uL (4.1-5.3); Red Cell Distribution Width 13.3 % (12.1-15.1)
[2021-09-08] MEDS: sodium chloride 0.9% 1,000 ML 999 ML IV (13:25)
[2021-09-08 13:28] VITALS: BP 156/71; PULSE 41; RESP 41; O2SAT 100
[2021-09-08 13:30] VITALS: BP 147/84; PULSE 42; RESP 18; O2SAT 100
[2021-09-08 13:40] LABS: Alanine Aminotransferase 13 U/L (0-33); Albumin Level 4.7 g/dL (3.5-5.2); Alkaline Phosphatase 58 IU/L (35-105); Anion Gap 17.1 (5-19); Aspartate Amino Transferase 11 U/L (0-32); Blood Urea Nitrogen 14 mg/dL (6-20); Calcium 8.5 mg/dL (8.5-10.5); Carbon Dioxide 23 mmol/L (22-29); Chloride 103 mmol/L (98-107); Creatinine Clr Calc Pharmacy 148.8572; Globulin 2.5 g/dL (1.3-4.6); Glomerular Filtration Rate 144.9 mL/min (90-130); Glucose 149 mg/dL (65-115); Lipase 13 U/L (13-60); Osmolality Calculated 291 mOsm/kg (285-295); Potassium 4.1 mmol/L (3.5-5.1); Sodium 139 mmol/L (136-145); Total Bilirubin 0.4 mg/dL (0.15-1.2); Total Protein 7.2 g/dL (6.6-8.7)
[2021-09-08 14:11] LABS: Bilirubin Urine Neg (Negative); Blood Urine Neg (Negative); Glucose Urine UA Norm (Normal); Ketones Urine 2+ (Negative); Leukocyte Esterase Urine Trace (Negative); Nitrate Urine Negative (Negative); Protein Urine Neg (Negative); Sulfosalicylic Acid Urine Negative (Negative); Urine Appearance Cloudy (CLEAR); Urine Color Yellow (Yellow); Urobilinogen Urine Norm (Negative); pH Urine 8 (5-7)
[2021-09-08 14:12] LABS: Add Urine Culture? No; Add Urine Microscopic? YES; Amorphous Sediment Urine 3+ /hpf; Bacteria Urine TRACE /hpf; WBC Urine 0-4 /hpf (0-5)
[2021-09-08 14:37] VITALS: BP 151/68; PULSE 41; RESP 18; TEMP 36.7; O2SAT 96
--- NOTE | 2021-09-09 09:39 | DCPLANNER ---
Addendum entered by Ara Blackburn 10/23/21 12:17: Patient had a follow up appointment scheduled for 10.07.21 with general surgery - patient did attend appointment. Addendum entered by Ara Blackburn 09/16/21 06:17: Patient has a follow up appointment scheduled for Thursday, October 07, 2021 at 2:[address] Pereyra at General Surgery. Clinic will call patient with appointment information. Original Note: manager latin had message to schedule a follow up appointment for patient with general surgery. manager latin emailed patients information to both Lali and Sonali at [facility] General Surgery / ENT clinic. Patients information will be printed and reviewed. Clinic will call patient with appointment information.
== END 2021-09-08 14:39 | disposition home or self-care (01) ==
PROVIDERS: Physician Assistant; Emergency Provider Emergency Medicine
DX: R11.2 Nausea with vomiting, unspecified (principal); F17.210 Nicotine dependence, cigarettes, uncomplicated
CPT/HCPCS: 80053; 81001; 81025; 83690; 85025; 96361; 96374; 96375; 99284; J1200; J1630; J2405; J3490; J7030

== ENCOUNTER 2021-09-11 05:13 | Emergency (ER) | payer OTHER, SELFPAY ==
[2021-09-11 05:18] VITALS: BP 185/114; PULSE 46; RESP 18; TEMP 36.3; O2SAT 98
--- NOTE | 2021-09-11 05:20 | CTR_ITS ---
PROCEDURE INFORMATION: Exam: CT Abdomen And Pelvis With Contrast Exam date and time: 09/11/2021 5:20 AM Age: 31 years old Clinical indication: Constipation and nausea and vomiting; Abdominal pain; Localized; Patient HX: C/O lower abd pain with n/v and constipation. TECHNIQUE: Imaging protocol: Computed tomography of the abdomen and pelvis with contrast. Radiation optimization: All CT scans at this facility use at least one of these dose optimization techniques: automated exposure control; mA and/or kV adjustment per patient size (includes targeted exams where dose is matched to clinical indication); or iterative reconstruction. Contrast material: OMNI 300; Contrast volume: 95 ml; Contrast route: INTRAVENOUS (IV); COMPARISON: CT abdomen pelvis w con* [id number] 06/10/2021 10:27 PM RADIATION DOSE METRICS: Total DLP (mGy-cm): 796.51 FINDINGS: Liver: Unremarkable. Gallbladder and bile ducts: Unremarkable. Pancreas: Unremarkable. Spleen: Unremarkable. Adrenal glands: Unremarkable. Kidneys and ureters: The right kidney is unremarkable. Subcentimeter hypodensity in the left kidney upper pole, statistically likely to represent a cyst. No renal stones identified. No hydronephrosis identified. Stomach and bowel: No bowel obstruction identified. No diverticulitis identified. Appendix: The appendix is not visualized as a separate structure. No findings to suggest appendicitis. Intraperitoneal space: No free intraperitoneal air identified. Mild free fluid in the pelvis. Vasculature: No abdominal aortic aneurysm. Lymph nodes: Unremarkable. Urinary bladder: Unremarkable as visualized. Reproductive: The uterus is unremarkable. There are two small oval hypodensities in the right ovary, larger 1.8 cm on series 2, image 61, consistent with prominent follicles. Bones/joints: Unremarkable. No acute fracture. Soft tissues: Unremarkable. CT/CT abdomen pelvis w con* [id number] IMPRESSION: 1. No acute intra-abdominal/intrapelvic process identified. Nonemergent findings as above.
--- NOTE | 2021-09-11 05:26 | ED_ITS ---
Documented by User: León Masters MD 09/11/21 05:28 HPI - Abdominal Pain General: Chief Complaint: Abdominal Pain Stated Complaint: N/V, can't use the bathroom in five days Time Seen by Provider: 09/11/21 05:18 Source: patient Mode of arrival: ambulatory Limitations: no limitations History of Present Illness: 31-year-old female states she has been having vomiting along with abdominal pain over the last 5 days. She states that she also has been constipated and has not had bowel movement in 5 days as well. States her pain is diffuse in nature and cramping rates it a 5 out of 10 states she had multiple episodes of vomiting she was seen here 3 days ago been taking Zofran with minimal relief. She denies any worsening improving factors denies any fevers. Associated Symptoms: Reports change in bowel habits, constipation, nausea and vomiting Related Data: Date of Last Menstrual Period: 03/11/21 Review of Systems GI: Reports: abdominal pain, nausea, vomiting, constipation and change in bowel habits FOR[facility]LY [facility], [facility] ED PFSH: Medical History Colitis Cyclical vomiting Surgical History No significant past surgical history Social History Smoking and tobacco status: current every day smoker Alcohol intake: current Female Reproductive History: Date of last menstrual period: 03/11/21 Physical Exam Const: COMMON NORMALS: patient oriented x3 HENMT: COMMON NORMALS: normocephalic and atraumatic HEAD & SCALP: normocephalic and atraumatic Eye: COMMON NORMALS: Equal, round and reactive pupils present and EOMs intact bilaterally PUPIL: Yes Equal, round and reactive pupils present Neck/C-Spine: COMMON NORMALS: full ROM and supple Chest: COMMONS NORMALS: normal inspection of the chest and normal palpation of entire chest wall Resp: COMMON NORMALS: normal respiratory effort, No retractions, No use of accessory muscles and clear to auscultation bilaterally AUSCULTATION: clear to auscultation bilaterally Cardio: COMMON NORMALS: regular rate, regular rhythm and No murmurs present (Cardio) RATE: regular rate RHYTHM: regular rhythm GI: COMMON NORMALS: Normal to inspection, nondistended, normoactive bowel sounds present, Soft to palpation and no masses PALPATION: Yes Soft to palpation and Yes Tenderness to palpation present (GI) (diffuse) Extremity: COMMON NORMALS: normal to inspection and full ROM Neuro: COMMON NORMALS: patient oriented x3, moves all extremities and no focal motor deficits Psych: COMMON NORMALS: mental status grossly normal, Normal thought process present and cooperative THOUGHT PROCESS: Normal thought process present Skin: COMMON NORMALS: no rashes or lesions noted and no wounds GENERAL SKIN EXAM: no rashes or lesions noted Course Vital Signs: Vital signs: Vital Signs Temperature 97.4 F L 09/11/21 05:18 Pulse Rate 46 L 09/11/21 06:11 Respiratory Rate 18 09/11/21 06:11 Blood Pressure 192/109 09/11/21 06:11 Pulse Oximetry 100 09/11/21 06:11 MDM - Abdominal Pain Lab Data : 09/11/21 05:25 09/11/21 05:25 Labs/Radiology: Radiology Impressions Abdomen/Pelvis CT 09/11/21 05:20 IMPRESSION: 1. No acute intra-abdominal/intrapelvic process identified. Nonemergent findings as above. Laboratory Results WBC 12.4 10^3/uL (4.0-10.0) H 09/11/21 05:25 RBC 4.90 10^6/uL (4.1-5.3) 09/11/21 05:25 Hgb 14.2 g/dL (11.5-15.3) 09/11/21 05:25 Hct 44.5 % (37.0-47.0) 09/11/21 05:25 MCV 90.8 fl (81-99) 09/11/21 05:25 MCH 29.0 pg (28.0-34.0) 09/11/21 05:25 MCHC 31.9 g/dL (30.0-36.0) 09/11/21 05:25 RDW 13.4 % (12.1-15.1) 09/11/21 05:25 Plt Count 274 10^3/cmm (130-400) 09/11/21 05:25 MPV 10.5 fL (7.4-10.4) H 09/11/21 05:25 Neut % (Auto) 77.3 % 09/11/21 05:25 Lymph % (Auto) 15.1 % 09/11/21 05:25 Ellis % (Auto) 5.4 % 09/11/21 05:25 Eos % (Auto) 1.2 % 09/11/21 05:25 Baso % (Auto) 0.5 % 09/11/21 05:25 Neut # (Auto) 9.60 10^3/uL (1.8-7.7) H 09/11/21 05:25 Lymph # (Auto) 1.9 10^3/uL (0.8-4.8) 09/11/21 05:25 Ellis # (Auto) 0.7 10^3/uL (0.2-0.9) 09/11/21 05:25 Eos # (Auto) 0.2 10^3/uL (0.0-0.8) 09/11/21 05:25 Baso # (Auto) 0.1 10^3/uL (0.0-0.1) 09/11/21 05:25 Nucleated RBC % (auto) 0 % 09/11/21 05:25 Nucleated RBCs # 0.0 /100WBC 09/11/21 05:25 Sodium 140 mmol/L (136-145) 09/11/21 05:25 Potassium 4.1 mmol/L (3.5-5.1) 09/11/21 05:25 Chloride 103 mmol/L (98-107) 09/11/21 05:25 Carbon Dioxide 25 mmol/L (22-29) 09/11/21 05:25 Anion Gap 16.1 (5-19) 09/11/21 05:25 BUN 13 mg/dL (6-20) 09/11/21 05:25 Creatinine 0.7 mg/dL (0.5-0.9) 09/11/21 05:25 GFR Calculation 98.3 mL/min (90-130) 09/11/21 05:25 Glucose 131 mg/dL (65-115) H 09/11/21 05:25 Calculated Osmolality 292 mOsm/kg (285-295) 09/11/21 05:25 Calcium 9.9 mg/dL (8.5-10.5) 09/11/21 05:25 Total Bilirubin 0.4 mg/dL (0.15-1.2) 09/11/21 05:25 AST 17 U/L (0-32) 09/11/21 05:25 ALT 22 U/L (0-33) 09/11/21 05:25 Alkaline Phosphatase 60 IU/L (35-105) 09/11/21 05:25 Total Protein 7.5 g/dL (6.6-8.7) 09/11/21 05:25 Albumin 4.9 g/dL (3.5-5.2) 09/11/21 05:25 Globulin 2.6 g/dL (1.3-4.6) 09/11/21 05:25 HCG, Qual Negative (Negative) 09/11/21 05:25 Urine Color Yellow (Yellow) 09/11/21 05:40 Urine Appearance Clear (CLEAR) 09/11/21 05:40 Urine pH 5 (5-7) 09/11/21 05:40 Ur Specific [place]vier 1.025 (1.005-1.030) 09/11/21 05:40 Urine Protein Neg (Negative) 09/11/21 05:40 Urine Glucose (UA) Norm (Normal) 09/11/21 05:40 Urine Ketones Negative (Negative) 09/11/21 05:40 Urine Blood Neg (Negative) 09/11/21 05:40 Urine Nitrate Negative (Negative) 09/11/21 05:40 Urine Bilirubin Neg (Negative) 09/11/21 05:40 Urine Urobilinogen 1 mg/dL (Negative) H 09/11/21 05:40 Ur Leukocyte Esterase Trace (Negative) H 09/11/21 05:40 Urine RBC 0-4 /hpf (0-2) H 09/11/21 05:40 Urine WBC 0-4 /hpf (0-5) H 09/11/21 05:40 Ur Squamous Epith Cells 5-10 /hpf (0-5) H 09/11/21 05:40 Amorphous Sediment Not Reportable 09/11/21 05:40 Urine Bacteria Trace /hpf (NONE) 09/11/21 05:40 Urine Mucus 3+ /hpf 09/11/21 05:40 Discharge Plan Discharge Patient Disposition: Home Clinical Impression: Nausea & vomiting Condition: Stable Prescriptions: New Promethegan 25 mg suppository 25 mg VT Q6H PRN (Reason: nausea and vomiting) Qty: 12 0RF ondansetron 4 mg tablet,disintegrating 4 mg PO Q6H PRN (Reason: nausea and vomiting) Qty: 20 0RF No Action Reglan 10 mg tablet 10 mg PO Q6H PRN (Reason: nausea and vomiting) Qty: 20 0RF hydrocodone-acetaminophen 5-325 mg tablet 1 tab PO Q6H PRN (Reason: pain) Qty: 15 0RF Augmentin 500-125 mg tablet 1 tab PO TID Qty: 21 0RF Zofran 4 mg tablet 4 mg PO TID PRN (Reason: nausea and vomiting) 4 Days Qty: 12 0RF Pepcid 20 mg tablet 20 mg PO BID PRN (Reason: abdominal pain) 10 Days Qty: 20 0RF Maalox Advanced 1,000-60 mg tablet,chewable 1 tab PO TID PRN (Reason: abdominal pain) 7 Days Qty: 21 0RF acetaminophen 500 mg tablet 500 mg PO Q6H PRN (Reason: pain) 5 Days Qty: 20 0RF Discharge Orders: Discharge ED (Routine); Ordered 09/11/21 Ordered By: Nathan Cotton Patient Instructions: Opioid Safety Activity Restrictions/Additional Instructions: Clear liquid diet for 24 to 48 hours and advance as tolerated return if has further problems Stand Alone Forms: Work/School Release Sign Out Sign Out Data: Patient Sign Out occurred on 09/11/21 at 06:20. Patient's care was discussed, and care was transferred from to Nathan Cotton DO. Coding Level of Care Code ED Solution Strategist for [place] Fwd Exam Comprehensive Documented by User: Nathan Cotton DO 09/11/21 10:21 HPI - Abdominal Pain General: Chief Complaint: Abdominal Pain Stated Complaint: N/V, can't use the bathroom in five days Time Seen by Provider: 09/11/21 05:18 PFSH ED PFSH: Medical History Colitis Cyclical vomiting Surgical History No significant past surgical history Social History Smoking and tobacco status: current every day smoker Alcohol intake: current Course Vital Signs: Vital signs: Vital Signs Temperature 97.4 F L 09/11/21 05:18 Pulse Rate 46 L 09/11/21 06:11 Respiratory Rate 18 09/11/21 06:11 Blood Pressure 192/109 09/11/21 06:11 Pulse Oximetry 100 09/11/21 06:11 MDM - Abdominal Pain Medical Decision Making Care assumed from Dr. Masters at change of shift. No acute intra-abdominal pathology some constipation from hydrocodone use initially recently. Can use [id number] laxatives gave promethazine and ondansetron ODT to use as needed for nausea clear liquid diet advance as tolerated return if has problems Medical Records I reviewed the patient's medical records. Lab Data I reviewed the patient's lab results. : 09/11/21 05:25 09/11/21 05:25 Labs/Radiology: Radiology Impressions Abdomen/Pelvis CT 09/11/21 05:20 IMPRESSION: 1. No acute intra-abdominal/intrapelvic process identified. Nonemergent findings as above. Laboratory Results WBC 12.4 10^3/uL (4.0-10.0) H 09/11/21 05:25 RBC 4.90 10^6/uL (4.1-5.3) 09/11/21 05:25 Hgb 14.2 g/dL (11.5-15.3) 09/11/21 05:25 Hct 44.5 % (37.0-47.0) 09/11/21 05:25 MCV 90.8 fl (81-99) 09/11/21 05:25 MCH 29.0 pg (28.0-34.0) 09/11/21 05:25 MCHC 31.9 g/dL (30.0-36.0) 09/11/21 05:25 RDW 13.4 % (12.1-15.1) 09/11/21 05:25 Plt Count 274 10^3/cmm (130-400) 09/11/21 05:25 MPV 10.5 fL (7.4-10.4) H 09/11/21 05:25 Neut % (Auto) 77.3 % 09/11/21 05:25 Lymph % (Auto) 15.1 % 09/11/21 05:25 Ellis % (Auto) 5.4 % 09/11/21 05:25 Eos % (Auto) 1.2 % 09/11/21 05:25 Baso % (Auto) 0.5 % 09/11/21 05:25 Neut # (Auto) 9.60 10^3/uL (1.8-7.7) H 09/11/21 05:25 Lymph # (Auto) 1.9 10^3/uL (0.8-4.8) 09/11/21 05:25 Ellis # (Auto) 0.7 10^3/uL (0.2-0.9) 09/11/21 05:25 Eos # (Auto) 0.2 10^3/uL (0.0-0.8) 09/11/21 05:25 Baso # (Auto) 0.1 10^3/uL (0.0-0.1) 09/11/21 05:25 Nucleated RBC % (auto) 0 % 09/11/21 05:25 Nucleated RBCs # 0.0 /100WBC 09/11/21 05:25 Sodium 140 mmol/L (136-145) 09/11/21 05:25 Potassium 4.1 mmol/L (3.5-5.1) 09/11/21 05:25 Chloride 103 mmol/L (98-107) 09/11/21 05:25 Carbon Dioxide 25 mmol/L (22-29) 09/11/21 05:25 Anion Gap 16.1 (5-19) 09/11/21 05:25 BUN 13 mg/dL (6-20) 09/11/21 05:25 Creatinine 0.7 mg/dL (0.5-0.9) 09/11/21 05:25 GFR Calculation 98.3 mL/min (90-130) 09/11/21 05:25 Glucose 131 mg/dL (65-115) H 09/11/21 05:25 Calculated Osmolality 292 mOsm/kg (285-295) 09/11/21 05:25 Calcium 9.9 mg/dL (8.5-10.5) 09/11/21 05:25 Total Bilirubin 0.4 mg/dL (0.15-1.2) 09/11/21 05:25 AST 17 U/L (0-32) 09/11/21 05:25 ALT 22 U/L (0-33) 09/11/21 05:25 Alkaline Phosphatase 60 IU/L (35-105) 09/11/21 05:25 Total Protein 7.5 g/dL (6.6-8.7) 09/11/21 05:25 Albumin 4.9 g/dL (3.5-5.2) 09/11/21 05:25 Globulin 2.6 g/dL (1.3-4.6) 09/11/21 05:25 HCG, Qual Negative (Negative) 09/11/21 05:25 Urine Color Yellow (Yellow) 09/11/21 05:40 Urine Appearance Clear (CLEAR) 09/11/21 05:40 Urine pH 5 (5-7) 09/11/21 05:40 Ur Specific Sevier 1.025 (1.005-1.030) 09/11/21 05:40 Urine Protein Neg (Negative) 09/11/21 05:40 Urine Glucose (UA) Norm (Normal) 09/11/21 05:40 Urine Ketones Negative (Negative) 09/11/21 05:40 Urine Blood Neg (Negative) 09/11/21 05:40 Urine Nitrate Negative (Negative) 09/11/21 05:40 Urine Bilirubin Neg (Negative) 09/11/21 05:40 Urine Urobilinogen 1 mg/dL (Negative) H 09/11/21 05:40 Ur Leukocyte Esterase Trace (Negative) H 09/11/21 05:40 Urine RBC 0-4 /hpf (0-2) H 09/11/21 05:40 Urine WBC 0-4 /hpf (0-5) H 09/11/21 05:40 Ur Squamous Epith Cells 5-10 /hpf (0-5) H 09/11/21 05:40 Amorphous Sediment Not Reportable 09/11/21 05:40 Urine Bacteria Trace /hpf (NONE) 09/11/21 05:40 Urine Mucus 3+ /hpf 09/11/21 05:40 Discharge Plan Discharge Patient Disposition: Home Clinical Impression: Nausea & vomiting Condition: Stable Prescriptions: New Promethegan 25 mg suppository 25 mg VT Q6H PRN (Reason: nausea and vomiting) Qty: 12 0RF ondansetron 4 mg tablet,disintegrating 4 mg PO Q6H PRN (Reason: nausea and vomiting) Qty: 20 0RF No Action Reglan 10 mg tablet 10 mg PO Q6H PRN (Reason: nausea and vomiting) Qty: 20 0RF hydrocodone-acetaminophen 5-325 mg tablet 1 tab PO Q6H PRN (Reason: pain) Qty: 15 0RF Augmentin 500-125 mg tablet 1 tab PO TID Qty: 21 0RF Zofran 4 mg tablet 4 mg PO TID PRN (Reason: nausea and vomiting) 4 Days Qty: 12 0RF Pepcid 20 mg tablet 20 mg PO BID PRN (Reason: abdominal pain) 10 Days Qty: 20 0RF Maalox Advanced 1,000-60 mg tablet,chewable 1 tab PO TID PRN (Reason: abdominal pain) 7 Days Qty: 21 0RF acetaminophen 500 mg tablet 500 mg PO Q6H PRN (Reason: pain) 5 Days Qty: 20 0RF Discharge Orders: Discharge ED (Routine); Ordered 09/11/21 Ordered By: Nathan Cotton Patient Instructions: Opioid Safety Activity Restrictions/Additional Instructions: Clear liquid diet for 24 to 48 hours and advance as tolerated return if has further problems Stand Alone Forms: Work/School Release Sign Out Sign Out Data: Patient Sign Out occurred on 09/11/21 at 06:20. Patient's care was discussed, and care was transferred from to Nathan Cotton DO. Coding Level of Care Code ED Solution Strategist for [place] Fwd Exam Comprehensive
[2021-09-11 05:30] LABS: Basophils # 0.1 10^3/uL (0.0-0.1); Basophils % 0.5 %; Eosinophils # 0.2 10^3/uL (0.0-0.8); Eosinophils % 1.2 %; Hematocrit 44.5 % (37.0-47.0); Hemoglobin 14.2 g/dL (11.5-15.3); Lymphocytes # 1.9 10^3/uL (0.8-4.8); Lymphocytes % 15.1 %; Mean Corpuscular HGB Conc 31.9 g/dL (30.0-36.0); Mean Corpuscular Volume 90.8 fl (81-99); Mean Platelet Volume 10.5 fL (7.4-10.4); Monocytes # 0.7 10^3/uL (0.2-0.9); Monocytes % 5.4 %; Neutrophils % 77.3 %; Nucleated Red Blood Cells % 0 %; Platelet Count 274 10^3/cmm (130-400); Red Cell Distribution Width 13.4 % (12.1-15.1); White Blood Count 12.4 10^3/uL (4.0-10.0)
[2021-09-11 05:45] VITALS: BP 170/98; PULSE 49; RESP 18; O2SAT 99
[2021-09-11 05:50] LABS: Add Urine Microscopic? YES; Bilirubin Urine Neg (Negative); Blood Urine Neg (Negative); Glucose Urine UA Norm (Normal); Ketones Urine Negative (Negative); Leukocyte Esterase Urine Trace (Negative); Nitrate Urine Negative (Negative); Protein Urine Neg (Negative); Specific Gravity, Urine 1.025 (1.005-1.030); Urine Appearance Clear (CLEAR); Urine Color Yellow (Yellow); Urobilinogen Urine 1 mg/dL (Negative); pH Urine 5 (5-7)
[2021-09-11 05:51] LABS: HCG, Serum Qual Negative (Negative)
[2021-09-11 05:51] LABS: Add Urine Culture? No; Bacteria Urine TRACE /hpf; Mucus Urine 3+ /hpf; RBC Urine 0-4 /hpf (0-2); WBC Urine 0-4 /hpf (0-5)
[2021-09-11 05:57] LABS: Alanine Aminotransferase 22 U/L (0-33); Albumin Level 4.9 g/dL (3.5-5.2); Alkaline Phosphatase 60 IU/L (35-105); Anion Gap 16.1 (5-19); Aspartate Amino Transferase 17 U/L (0-32); Blood Urea Nitrogen 13 mg/dL (6-20); Calcium 9.9 mg/dL (8.5-10.5); Carbon Dioxide 25 mmol/L (22-29); Chloride 103 mmol/L (98-107); Globulin 2.6 g/dL (1.3-4.6); Glomerular Filtration Rate 98.3 mL/min (90-130); Glucose 131 mg/dL (65-115); Osmolality Calculated 292 mOsm/kg (285-295); Potassium 4.1 mmol/L (3.5-5.1); Sodium 140 mmol/L (136-145); Total Bilirubin 0.4 mg/dL (0.15-1.2); Total Protein 7.5 g/dL (6.6-8.7)
[2021-09-11] MEDS: iohexol 300 mg/mL 100 mL Btl IV (06:01)
[2021-09-11] MEDS: sodium chloride 0.9% 1,000 ML 999 ML IV (06:10)
[2021-09-11 06:11] VITALS: BP 192/109; PULSE 46; RESP 18; O2SAT 100
[2021-09-11] MEDS: ondansetron 2 mg/ML SDV 2 mL 4 MG IVP (06:11)
[2021-09-11] MEDS: morphine 4 mg/mL SDV 1 mL IVP (06:11)
== END 2021-09-11 07:33 | disposition home or self-care (01) ==
PROVIDERS: Emergency Medicine; Emergency Provider Family Medicine
DX: R11.2 Nausea with vomiting, unspecified (principal); F17.210 Nicotine dependence, cigarettes, uncomplicated
CPT/HCPCS: 74177; 80053; 81001; 84703; 85025; 96361; 96374; 96375; 99284; J2270; J2405; J7030; Q9967

== ENCOUNTER 2021-11-04 08:24 | Emergency (ER) | payer OTHER, SELFPAY ==
[2021-11-04 08:33] VITALS: BP 173/117; PULSE 65; RESP 23; TEMP 36.6; O2SAT 100; BMI 22.3
--- NOTE | 2021-11-04 08:36 | ED_ITS ---
Documented by User: SOPHIA Galeana 11/04/21 10:12 HPI - Nausea/Vomiting/Diarrhea General: Chief complaint: Nausea/Vomiting/Diarrhea Stated complaint: N/V Swollen throat, Chest pain Time Seen by Provider: 11/04/21 08:25 Source: patient Mode of arrival: ambulatory Limitations: no limitations History of Present Illness: Patient is a 31-year-old female presents to ED today with a complaint of nausea and vomiting as well as diffuse crampy abdominal pains. Patient states she has been having nausea and vomiting over the last 48 hours. She complains that her throat is hurting from vomiting and is also having some minor chest pains. Patient states she has had identical s ymptoms several times previously. Looking at her previous documentation patient has had 10 ED visits just in the last year for very similar symptoms. Patient has had 5 CTs of her abdomen/pelvis, US gallbladder, and HIDA scan all of which have been normal. Patient states she has recently seen general surgery and is scheduled for EGD/colonoscopy later this month. Patient has not been running fevers. She has not had any diarrhea. Previous diagnoses/possible etiologies for her abdominal pain included colitis, biliary colic, cyclic vomiting syndrome. Patient states she still uses marijuana weekly. Denies any other drug use or alcohol use. Denies NSAID use. Patient states she has been on Protonix for a month now without any improvement in symptoms. MD elicited complaint: nausea, vomiting and abdominal pain Onset (ago): day(s) Associated nausea: Yes Associated abdominal pain: Yes Location of pain: Diffuse Quality: cramping Relieving factors: none Associated symtoms: Reports chest pain and nausea; Denies dizziness, dysuria, fatigue, headache(s), malaise, palpitations or syncope Review of Systems Const: Denies: fever(s), chills, body aches, fatigue or malaise ENMT: Reports: throat pain and odynophagia; Denies: hoarseness, mouth pain, swelling of lips/tongue or oral sores Card: Reports: chest pain; Denies: palpitations, irregular heart rhythm, edema, swelling of feet/ankles, lightheadedness, syncope or pre-syncope Resp: Denies: dyspnea, productive cough, non-productive cough, wheezing, hemoptysis or chest congestion GI: Reports: abdominal pain, nausea and vomiting; Denies: hematemesis, diarrhea or change in bowel habits : Denies: flank pain, difficulty voiding, dysuria, hematuria, vaginal odor, vaginal bleeding or vaginal discharge Musc: Denies: neck pain, back pain, extremity pain or joint pain Skin/Breast: Denies: rash Neuro: Denies: headache(s), numbness in extremities, weakness in extremities, sensory changes or dizziness PFSH ED PFSH: Medical History Colitis Cyclical vomiting Surgical History No significant past surgical history Social History (Updated 11/04/21 @ 09:18 by SOPHIA Galeana) Smoking and tobacco status: current every day smoker Alcohol intake: current Substance/Drug Use: current Substance/Drug use type: Marijuana Other substance/drug use details: +marijuana Female Reproductive History: Date of last menstrual period: 03/11/21 Physical Exam Const: COMMON NORMALS: average body habitus, patient oriented x3, no limitations, healthy appearing, alert and well nourished GENERAL APPEARANCE: cooperative and in distress (nauseous/anxious; mild hyperventilation ) ORIENTATION/CONSCIOUSNESS: Yes awake, Yes oriented to person, Yes oriented to place and Yes oriented to time HENMT: COMMON NORMALS: normocephalic and atraumatic HEAD & SCALP: normal to inspection, normocephalic and atraumatic Resp: COMMON NORMALS: normal respiratory effort and clear to auscultation bilaterally AUSCULTATION: clear to auscultation bilaterally Cardio: COMMON NORMALS: regular rate and regular rhythm RATE: regular rate RHYTHM: regular rhythm GI: COMMON NORMALS: Normal to inspection, nondistended, normoactive bowel sounds present, No hepatosplenomegaly present and no masses INSPECTION: Yes normal to inspection AUSCULTATION: Yes normoactive bowel sounds PALPATION: Yes Tenderness to palpation present (GI) (diffusely), Yes Rigid due to palpation and Yes No hepatosplenomegaly present : COMMON NORMALS: Yes no CVA tenderness BLADDER/KIDNEY EXAM: Yes no CVA tenderness Back/Pelvis: COMMON NORMALS: no CVA tenderness Extremity: COMMON NORMALS: normal to inspection Neuro: CORA COMA SCALE: document GCS findings Cora coma scale eye opening: Spontaneous [place] coma scale verbal response: Orientated Cora coma scale motor response: Obey commands Cora coma scale total score: 15 COMMON NORMALS: patient oriented x3, moves all extremities, no focal motor deficits and no sensory deficits noted SENSORIUM/ORIENTATION: Yes alert, Yes oriented to person, Yes oriented to place and Yes oriented to time Skin: COMMON NORMALS: no rashes or lesions noted GENERAL SKIN EXAM: no rashes or lesions noted Course Vital Signs: Vital signs: Vital Signs Temperature 98.4 F 11/04/21 10:51 Pulse Rate 60 11/04/21 10:51 Respiratory Rate 16 11/04/21 10:51 Blood Pressure 116/51 11/04/21 10:51 Pulse Oximetry 96 11/04/21 10:51 MDM - Nausea/Vomiting/Diarrhea Medical Decision Making Patient feels much better following IV fluids, Zofran, Benadryl, and Haldol. Her blood work is unremarkable. Again looking at previous documentation patient has had 10 ED visits just this year for almost identical symptoms. She has had 5 CTs of her abdomen/pelvis as well as an US gallbladder and HIDA scan just this year for evaluation. At this time I do not see any need for repeat emergent imaging. Examination reveals a soft non-tender abdomen. She states she is scheduled for an EGD/colonoscopy with Dr. Pereyra later this month. Patient still continues to use marijuana on a regular basis. I think cyclic vomiting syndrome certainly could be the most likely etiology for her symptoms. States she feels comfortable going home at this time. Return to ED precautions given. Lab Data : 11/04/21 08:50 11/04/21 08:50 Laboratory Results WBC 11.2 10^3/uL (4.0-10.0) H 11/04/21 08:50 RBC 5.08 10^6/uL (4.1-5.3) 11/04/21 08:50 Hgb 15.1 g/dL (11.5-15.3) 11/04/21 08:50 Hct 45.6 % (37.0-47.0) 11/04/21 08:50 MCV 89.8 fl (81-99) 11/04/21 08:50 MCH 29.7 pg (28.0-34.0) 11/04/21 08:50 MCHC 33.1 g/dL (30.0-36.0) 11/04/21 08:50 RDW 13.2 % (12.1-15.1) 11/04/21 08:50 Plt Count 300 10^3/cmm (130-400) 11/04/21 08:50 MPV 10.9 fL (7.4-10.4) H 11/04/21 08:50 Neut % (Auto) 89.9 % 11/04/21 08:50 Lymph % (Auto) 7.6 % 11/04/21 08:50 [place] % (Auto) 2.0 % 11/04/21 08:50 Eos % (Auto) 0.0 % 11/04/21 08:50 Baso % (Auto) 0.2 % 11/04/21 08:50 Neut # (Auto) 10.12 10^3/uL (1.8-7.7) H 11/04/21 08:50 Lymph # (Auto) 0.9 10^3/uL (0.8-4.8) 11/04/21 08:50 [place] # (Auto) 0.2 10^3/uL (0.2-0.9) 11/04/21 08:50 Eos # (Auto) 0.0 10^3/uL (0.0-0.8) 11/04/21 08:50 Baso # (Auto) 0.0 10^3/uL (0.0-0.1) 11/04/21 08:50 Nucleated RBC % (auto) 0 % 11/04/21 08:50 Nucleated RBCs # 0.0 /100WBC 11/04/21 08:50 Sodium 136 mmol/L (136-145) 11/04/21 08:50 Potassium 3.8 mmol/L (3.5-5.1) 11/04/21 08:50 Chloride 96 mmol/L (98-107) L 11/04/21 08:50 Carbon Dioxide 25 mmol/L (22-29) 11/04/21 08:50 Anion Gap 18.8 (5-19) 11/04/21 08:50 BUN 14 mg/dL (6-20) 11/04/21 08:50 Creatinine 0.7 mg/dL (0.5-0.9) 11/04/21 08:50 GFR Calculation 98.3 mL/min (90-130) 11/04/21 08:50 Glucose 139 mg/dL (65-115) H 11/04/21 08:50 Calculated Osmolality 285 mOsm/kg (285-295) 11/04/21 08:50 Calcium 9.2 mg/dL (8.5-10.5) 11/04/21 08:50 Total Bilirubin 0.8 mg/dL (0.15-1.2) 11/04/21 08:50 AST 18 U/L (0-32) 11/04/21 08:50 ALT 17 U/L (0-33) 11/04/21 08:50 Alkaline Phosphatase 69 IU/L (35-105) 11/04/21 08:50 Total Protein 7.9 g/dL (6.6-8.7) 11/04/21 08:50 Albumin 5.3 g/dL (3.5-5.2) H 11/04/21 08:50 Globulin 2.6 g/dL (1.3-4.6) 11/04/21 08:50 Lipase 21 U/L (13-60) 11/04/21 08:50 HCG, Qual Negative (Negative) 11/04/21 09:00 Urine Color Yellow (Yellow) 11/04/21 09:52 Urine Appearance Hazy (CLEAR) A 11/04/21 09:52 Urine pH 7 (5-7) 11/04/21 09:52 Ur Specific [place] 1.015 (1.005-1.030) 11/04/21 09:52 Urine Protein Neg (Negative) 11/04/21 09:52 Urine Glucose (UA) Norm (Normal) 11/04/21 09:52 Urine Ketones 1+ (Negative) H 11/04/21 09:52 Urine Blood Neg (Negative) 11/04/21 09:52 Urine Nitrate Negative (Negative) 11/04/21 09:52 Urine Bilirubin Neg (Negative) 11/04/21 09:52 Urine Urobilinogen Neg mg/dL (Negative) 11/04/21 09:52 Ur Leukocyte Esterase Negative (Negative) 11/04/21 09:52 Urine RBC None /hpf (0-2) 11/04/21 09:52 Urine WBC None /hpf (0-5) 11/04/21 09:52 Ur Squamous Epith Cells 5-10 /hpf (0-5) H 11/04/21 09:52 Amorphous Sediment 2+ /hpf 11/04/21 09:52 Urine Bacteria Trace /hpf (NONE) 11/04/21 09:52 Discharge Plan Discharge Patient Disposition: Home Clinical Impression: Cyclic vomiting syndrome Condition: Stable Prescriptions: New ondansetron 4 mg tablet,disintegrating 4 mg PO Q8H PRN (Reason: nausea and vomiting) Qty: 14 0RF No Action Protonix 40 mg tablet,delayed release (DR/EC) 40 mg PO QAM 0RF Discharge Orders: Discharge ED (Routine); Ordered 11/04/21 Ordered By: Toma Pittman Coding Level of Care Code ED [employer] for Chg Fwd Exam Comprehensive Documented by User: Forest Rose MD 11/07/21 00:01 HPI - Nausea/Vomiting/Diarrhea General: Chief complaint: Nausea/Vomiting/Diarrhea Stated complaint: N/V Swollen throat, Chest pain Time Seen by Provider: 11/04/21 08:25 [facility] ED PFSH: Medical History Colitis Cyclical vomiting Surgical History No significant past surgical history Social History (Updated 11/04/21 @ 09:18 by SOPHIA Galeana) Smoking and tobacco status: current every day smoker Alcohol intake: current Substance/Drug Use: current Substance/Drug use type: Marijuana Other substance/drug use details: +marijuana Physical Exam Neuro: CORA COMA SCALE: document GCS findings Cora coma scale total score: 15 Course Vital Signs: Vital signs: Vital Signs Temperature 98.4 F 11/04/21 10:51 Pulse Rate 60 11/04/21 10:51 Respiratory Rate 16 11/04/21 10:51 Blood Pressure 116/51 11/04/21 10:51 Pulse Oximetry 96 11/04/21 10:51 MDM - Nausea/Vomiting/Diarrhea Medical Decision Making Patient feels much better following IV fluids, Zofran, Benadryl, and Haldol. Her blood work is unremarkable. Again looking at previous documentation patient has had 10 ED visits just this year for almost identical symptoms. She has had 5 CTs of her abdomen/pelvis as well as an US gallbladder and HIDA scan just this year for evaluation. At this time I do not see any need for repeat emergent imaging. Examination reveals a soft non-tender abdomen. She states she is scheduled for an EGD/colonoscopy with Dr. Pereyra later this month. Patient still continues to use marijuana on a regular basis. I think cyclic vomiting syndrome certainly could be the most likely etiology for her symptoms. States she feels comfortable going home at this time. Return to ED precautions given. I have reviewed this documentation by SOPHIA Galeana. Forest Rose MD Emergency Medicine Lab Data : 11/04/21 08:50 11/04/21 08:50 Laboratory Results WBC 11.2 10^3/uL (4.0-10.0) H 11/04/21 08:50 RBC 5.08 10^6/uL (4.1-5.3) 11/04/21 08:50 Hgb 15.1 g/dL (11.5-15.3) 11/04/21 08:50 Hct 45.6 % (37.0-47.0) 11/04/21 08:50 MCV 89.8 fl (81-99) 11/04/21 08:50 MCH 29.7 pg (28.0-34.0) 11/04/21 08:50 MCHC 33.1 g/dL (30.0-36.0) 11/04/21 08:50 RDW 13.2 % (12.1-15.1) 11/04/21 08:50 Plt Count 300 10^3/cmm (130-400) 11/04/21 08:50 MPV 10.9 fL (7.4-10.4) H 11/04/21 08:50 Neut % (Auto) 89.9 % 11/04/21 08:50 Lymph % (Auto) 7.6 % 11/04/21 08:50 [place] % (Auto) 2.0 % 11/04/21 08:50 Eos % (Auto) 0.0 % 11/04/21 08:50 Baso % (Auto) 0.2 % 11/04/21 08:50 Neut # (Auto) 10.12 10^3/uL (1.8-7.7) H 11/04/21 08:50 Lymph # (Auto) 0.9 10^3/uL (0.8-4.8) 11/04/21 08:50 [place] # (Auto) 0.2 10^3/uL (0.2-0.9) 11/04/21 08:50 Eos # (Auto) 0.0 10^3/uL (0.0-0.8) 11/04/21 08:50 Baso # (Auto) 0.0 10^3/uL (0.0-0.1) 11/04/21 08:50 Nucleated RBC % (auto) 0 % 11/04/21 08:50 Nucleated RBCs # 0.0 /100WBC 11/04/21 08:50 Sodium 136 mmol/L (136-145) 11/04/21 08:50 Potassium 3.8 mmol/L (3.5-5.1) 11/04/21 08:50 Chloride 96 mmol/L (98-107) L 11/04/21 08:50 Carbon Dioxide 25 mmol/L (22-29) 11/04/21 08:50 Anion Gap 18.8 (5-19) 11/04/21 08:50 BUN 14 mg/dL (6-20) 11/04/21 08:50 Creatinine 0.7 mg/dL (0.5-0.9) 11/04/21 08:50 GFR Calculation 98.3 mL/min (90-130) 11/04/21 08:50 Glucose 139 mg/dL (65-115) H 11/04/21 08:50 Calculated Osmolality 285 mOsm/kg (285-295) 11/04/21 08:50 Calcium 9.2 mg/dL (8.5-10.5) 11/04/21 08:50 Total Bilirubin 0.8 mg/dL (0.15-1.2) 11/04/21 08:50 AST 18 U/L (0-32) 11/04/21 08:50 ALT 17 U/L (0-33) 11/04/21 08:50 Alkaline Phosphatase 69 IU/L (35-105) 11/04/21 08:50 Total Protein 7.9 g/dL (6.6-8.7) 11/04/21 08:50 Albumin 5.3 g/dL (3.5-5.2) H 11/04/21 08:50 Globulin 2.6 g/dL (1.3-4.6) 11/04/21 08:50 Lipase 21 U/L (13-60) 11/04/21 08:50 HCG, Qual Negative (Negative) 11/04/21 09:00 Urine Color Yellow (Yellow) 11/04/21 09:52 Urine Appearance Hazy (CLEAR) A 11/04/21 09:52 Urine pH 7 (5-7) 11/04/21 09:52 Ur Specific [place] 1.015 (1.005-1.030) 11/04/21 09:52 Urine Protein Neg (Negative) 11/04/21 09:52 Urine Glucose (UA) Norm (Normal) 11/04/21 09:52 Urine Ketones 1+ (Negative) H 11/04/21 09:52 Urine Blood Neg (Negative) 11/04/21 09:52 Urine Nitrate Negative (Negative) 11/04/21 09:52 Urine Bilirubin Neg (Negative) 11/04/21 09:52 Urine Urobilinogen Neg mg/dL (Negative) 11/04/21 09:52 Ur Leukocyte Esterase Negative (Negative) 11/04/21 09:52 Urine RBC None /hpf (0-2) 11/04/21 09:52 Urine WBC None /hpf (0-5) 11/04/21 09:52 Ur Squamous Epith Cells 5-10 /hpf (0-5) H 11/04/21 09:52 Amorphous Sediment 2+ /hpf 11/04/21 09:52 Urine Bacteria Trace /hpf (NONE) 11/04/21 09:52 Discharge Plan Discharge Patient Disposition: Home Clinical Impression: Cyclic vomiting syndrome Condition: Stable Prescriptions: New ondansetron 4 mg tablet,disintegrating 4 mg PO Q8H PRN (Reason: nausea and vomiting) Qty: 14 0RF No Action Protonix 40 mg tablet,delayed release (DR/EC) 40 mg PO QAM 0RF Discharge Orders: Discharge ED (Routine); Ordered 11/04/21 Ordered By: Toma Pittman Coding Level of Care Code ED [employer] for Chg Fwd Exam Comprehensive
[2021-11-04 08:37] VITALS: BP 151/92; PULSE 45; RESP 18; O2SAT 96
[2021-11-04 08:55] LABS: Basophils % 0.2 %; Hematocrit 45.6 % (37.0-47.0); Hemoglobin 15.1 g/dL (11.5-15.3); Lymphocytes # 0.9 10^3/uL (0.8-4.8); Lymphocytes % 7.6 %; Mean Corpuscular HGB Conc 33.1 g/dL (30.0-36.0); Mean Corpuscular Hemoglobin 29.7 pg (28.0-34.0); Mean Corpuscular Volume 89.8 fl (81-99); Mean Platelet Volume 10.9 fL (7.4-10.4); Monocytes # 0.2 10^3/uL (0.2-0.9); Neutrophils # 10.12 10^3/uL (1.8-7.7); Neutrophils % 89.9 %; Nucleated Red Blood Cells % 0 %; Platelet Count 300 10^3/cmm (130-400); Red Blood Count 5.08 10^6/uL (4.1-5.3); Red Cell Distribution Width 13.2 % (12.1-15.1); White Blood Count 11.2 10^3/uL (4.0-10.0)
[2021-11-04] MEDS: sodium chloride 0.9% 1,000 ML 999 ML IV (08:58)
[2021-11-04] MEDS: diphenhydrAMINE 50 mg/mL SDV 1mL 25 MG IVP (08:58)
[2021-11-04] MEDS: ondansetron 2 mg/ML SDV 2 mL 4 MG IVP (08:58)
[2021-11-04] MEDS: haloperidol inj 5 mg/mL INJ 1 mL 2.5 MG IVP (08:59)
--- NOTE | 2021-11-04 09:11 | PC.PHAR ---
pt states she is only taking protonix 40mg qam-pt states she use to take amlodipine 5mg daily pt states it lowered her heart rate so she stop taking pt states not taken since mar or apr 2021-ext med history shows last filled 03/15/21 30d/s
[2021-11-04 09:16] LABS: Alanine Aminotransferase 17 U/L (0-33); Albumin Level 5.3 g/dL (3.5-5.2); Alkaline Phosphatase 69 IU/L (35-105); Anion Gap 18.8 (5-19); Aspartate Amino Transferase 18 U/L (0-32); Blood Urea Nitrogen 14 mg/dL (6-20); Calcium 9.2 mg/dL (8.5-10.5); Carbon Dioxide 25 mmol/L (22-29); Chloride 96 mmol/L (98-107); Globulin 2.6 g/dL (1.3-4.6); Glomerular Filtration Rate 98.3 mL/min (90-130); Glucose 139 mg/dL (65-115); Lipase 21 U/L (13-60); Osmolality Calculated 285 mOsm/kg (285-295); Potassium 3.8 mmol/L (3.5-5.1); Sodium 136 mmol/L (136-145); Total Bilirubin 0.8 mg/dL (0.15-1.2); Total Protein 7.9 g/dL (6.6-8.7)
[2021-11-04 09:37] LABS: HCG, Serum Qual Negative (Negative)
[2021-11-04 09:57] VITALS: BP 125/52; PULSE 52; RESP 18; O2SAT 96
[2021-11-04] MEDS: lidocaine 2% viscous 15 ML, aluminum-mag hydrox-simethicon 30 ML, sucralfate oral liq 1 GM PO (10:10)
[2021-11-04 10:24] LABS: Urine Appearance Hazy (CLEAR); Urine Color Yellow (Yellow); pH Urine 7 (5-7)
[2021-11-04 10:25] LABS: Add Urine Culture? No; Add Urine Microscopic? YES; Amorphous Sediment Urine 2+ /hpf; Bacteria Urine TRACE /hpf; Bilirubin Urine Neg (Negative); Blood Urine Neg (Negative); Glucose Urine UA Norm (Normal); Ketones Urine 1+ (Negative); Leukocyte Esterase Urine Negative (Negative); Nitrate Urine Negative (Negative); Protein Urine Neg (Negative); Specific Gravity, Urine 1.015 (1.005-1.030); Urobilinogen Urine Neg (Negative)
[2021-11-04 10:51] VITALS: BP 116/51; PULSE 60; RESP 16; TEMP 36.9; O2SAT 96
== END 2021-11-04 10:58 | disposition home or self-care (01) ==
PROVIDERS: Emergency Provider Physician Assistant
DX: R11.15 Cyclical vomiting syndrome unrelated to migraine (principal)
CPT/HCPCS: 80053; 81001; 83690; 84703; 85025; 96374; 96375; 99284; J1200; J1630; J2405; J7030

== ENCOUNTER 2021-11-25 16:48 | Emergency (ER) | payer OTHER, SELFPAY ==
[2021-11-25 16:56] VITALS: BP 145/110; PULSE 102; RESP 22; O2SAT 100; BMI 22.3
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
[2021-11-25] MEDS: tetanus-dipt-pertussis 0.5 mL SDV IM (17:10)
[2021-11-25 17:18] VITALS: RESP 16
[2021-11-25] MEDS: morphine 4 mg/mL SDV 1 mL IVP (17:18)
[2021-11-25] MEDS: sodium bicarbonate 8.4% 1 mEq/mL 50mL Syr 50 MEQ IVP (18:23)
--- NOTE | 2021-11-25 19:03 | PC.NURSE ---
REPORT GIVEN TO [facility] ASS[facility]ED CARE.
--- NOTE | 2021-11-25 19:26 | PC.NURSE ---
1910- provider at bedside suturing patients left 4 th and 2nd middle finger.patient in no obvious distress.
--- NOTE | 2021-11-25 19:44 | XRR_ITS ---
PROCEDURE INFORMATION: Exam: XR Left Hand Exam date and time: 11/25/2021 7:46 PM Age: 31 years old Clinical indication: Pain; Hand; Left; Additional info: Hand pain / post removal of foreign objects TECHNIQUE: Imaging protocol: XR Left hand. Views: 3 or more views. COMPARISON: CR ([facility], ) 11/25/2021 5:12 PM FINDINGS: Bones/joints: Normal. Soft tissues: There is soft tissue swelling of the fingers especially the middle finger. Most of the opaque foreign body is described on the prior views of the left hand are no longer identified, presumably having been removed. There is still possible foreign body overlying the dorsum of the base of the 5th proximal phalanx seen on the AP and oblique views. Please correlate with the physical exam. XR/XR hand LT min 3V* [id number] IMPRESSION: The majority of the foreign bodies described on the previous exam are longer identified presumably having been removed. There is still possible small foreign body such as a tiny shard of glass overlying the base of the 5th proximal phalanx.
[2021-11-25 20:10] VITALS: BP 158/102; PULSE 88; RESP 18; O2SAT 95
--- NOTE | 2021-12-01 07:31 | PC.NURSE ---
PATIENT RETURNED FOR SUTURE REMOVAL- REMOVED 3 SUTURES- ADVISED PATIENT TO WATCH INCISION, KEEP IT CLEAN AND DRY NO SOAKING AND NO EXCESSIVE BENDING- PATIENT VERBALIZES UNDERSTANDING OF INSTRUCTIONS
== END 2021-11-25 20:14 | disposition home or self-care (01) ==
PROVIDERS: Emergency Provider Emergency Medicine
DX: S61.213A Laceration without foreign body of left middle finger without damage to nail, initial encounter (principal); S61.215A Laceration without foreign body of left ring finger without damage to nail, initial encounter; S61.217A Laceration without foreign body of left little finger without damage to nail, initial encounter; V43.52XA Car driver injured in collision with other type car in traffic accident, initial encounter; Z23 Encounter for immunization
CPT/HCPCS: 12001; 70450; 73130; 90471; 90715; 96374; 96375; 99284; J2270

== ENCOUNTER 2022-04-17 07:31 | Emergency (ER) | payer BC, SELFPAY ==
[2022-04-17 07:35] VITALS: BP 123/76; PULSE 120; RESP 18; TEMP 36.8; O2SAT 98; BMI 23.1
[2022-04-17] MEDS: acetaminophen 325 mg Tablet 975 MG PO (08:06)
[2022-04-17] MEDS: ketorolac 30 mg/mL INJ 15 MG IM (08:06)
[2022-04-17 08:13] LABS: Rapid Strep A Test Negative (Negative)
--- NOTE | 2022-04-17 08:14 | ED_ITS ---
HPI - General Adult General: Chief complaint: General Medical Stated complaint: body ache, congestion Time Seen by Provider: 04/17/22 07:33 History of Present Illness: 31-year-old female noting 4 days of worsening nasal congestion sore throat and body aches. Symptoms are gradually worsening. Associated fevers and chills. No nausea or vomiting. No diarrhea. She denies abdominal pain. She denies dysuria or polyuria. She denies history of blood clots. Recent travel recent surgeries. Primary concern is does she have COVID. Review of Systems General: Reports: 10 or more systems reviewed and unremarkable except in HPI and below PFS ED PFSH: Medical History Colitis Cyclical vomiting Surgical History No significant past surgical history Social History Smoking and tobacco status: current every day smoker Alcohol intake: current Female Reproductive History: Date of last menstrual period: 03/11/21 Physical Exam Const: COMMON NORMALS: no acute distress, patient oriented x3 and alert GENERAL APPEARANCE: cooperative ORIENTATION/CONSCIOUSNESS: Yes awake, Yes oriented to person, Yes oriented to place and Yes oriented to time HENMT: COMMON NORMALS: normocephalic, atraumatic, external ears normal, Normal external nose present and moist oral mucous membranes HEAD & SCALP: normal to inspection, normocephalic and atraumatic NOSE: Normal external nose present GENERAL EAR: hearing grossly impaired EXTERNAL EAR: Yes external ears normal Eye: COMMON NORMALS: Equal, round and reactive pupils present, EOMs intact bilaterally, conjunctivae normal and no scleral icterus GENERAL EYE: appearance normal, both eyes and all related structures EYELID: eyelids normal CONJUNCTIVA: Yes conjunctivae normal SCLERA: sclerae normal PUPIL: Yes Equal, round and reactive pupils present Neck/C-Spine: COMMON NORMALS: full ROM, supple and no JVD GENERAL: Yes normal visual inspection Lymph: LYMPHATIC: no lymphadenopathy noted and no lymphedema noted Chest: COMMONS NORMALS: normal inspection of the chest Resp: COMMON NORMALS: normal respiratory effort, No retractions and No use of accessory muscles Cardio: COMMON NORMALS: no JVD, regular rate and regular rhythm RATE: regular rate RHYTHM: regular rhythm GI: COMMON NORMALS: Normal to inspection, nondistended, normoactive bowel sounds present : COMMON NORMALS: Yes no CVA tenderness BLADDER/KIDNEY EXAM: Yes no CVA tenderness Back/Pelvis: COMMON NORMALS: no CVA tenderness and thoracic and lumbar spine normal to inspection Extremity: COMMON NORMALS: normal to inspection, full ROM and capillary refill normal GENERAL: Yes normal exam except as noted Neuro: COMMON NORMALS: patient oriented x3, CN's II-XII intact bilaterally, moves all extremities, no focal motor deficits, no sensory deficits noted and gait normal SENSORIUM/ORIENTATION: Yes alert, Yes oriented to person, Yes oriented to place and Yes oriented to time Psych: COMMON NORMALS: mental status grossly normal, Normal thought process present, cooperative and normal affect THOUGHT PROCESS: Normal thought process present Skin: COMMON NORMALS: no rashes or lesions noted and no wounds GENERAL SKIN EXAM: no rashes or lesions noted Course Vital Signs: Vital signs: Vital Signs Temperature 98.3 F 04/17/22 07:35 Pulse Rate 88 04/17/22 08:41 Respiratory Rate 16 04/17/22 08:41 Blood Pressure 136/98 04/17/22 08:41 Pulse Oximetry 97 04/17/22 08:41 Oxygen Delivery Me thod 04/17/22 07:35 [facility] - General Adult Medical Decision Making 31-year-old female presenting today with flulike illness. COVID is negative. Strep test is negative. Suspect upper respiratory tract infection. 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 Patient is a Adenovirus/rhinovirus positive. Patient was given strict return precautions and recommended routine outpatient follow-up. Lab Data Laboratory Results Adenovirus (PCR) Detected (NOT DETECT) A 04/17/22 10:11 Coronavirus 229E (PCR) Not detected (NOT DETECT) 04/17/22 07:57 Human Metapneumovir PCR Not detected (NOT DETECT) 04/17/22 10:11 Entero/Rhino (PCR) Detected (NOT DETECT) A 04/17/22 10:11 SARS-CoV-2 (PCR) Not detected (NOT DETECT) 04/17/22 07:57 Group A Strep Rapid Negative (Negative) 04/17/22 07:57 Discharge Plan Discharge Patient Disposition: Home Clinical Impression: Adenoviral pharyngitis Condition: Stable Prescriptions: New diclofenac sodium 75 mg tablet,delayed release (DR/EC) 75 mg PO BID Qty: 30 0RF Discharge Orders: Discharge ED (Routine); Ordered 04/17/22 Ordered By: Abhilash Rodriguez Patient Instructions: Upper Respiratory Infection - Adult Coding Level of Care Code 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
[2022-04-17 08:41] VITALS: BP 136/98; PULSE 88; RESP 16; O2SAT 97
[2022-04-17 10:10] LABS: Adenovirus Detected (NOT DETECT); Coronavirus 229E,HKU1,NL63,OC4 Not Detected (NOT DETECT); Human Metapneumovirus Not Detected (NOT DETECT); Human Rhinovirus/Enterovirus Detected (NOT DETECT); SARS-COV-2 Not Detected (NOT DETECT)
[2022-04-17 10:11] LABS: Human Metapneumovirus Not Detected (NOT DETECT); Human Rhinovirus/Enterovirus Detected (NOT DETECT); Results from GENMARK
[2022-04-17 10:11] LABS: Chlamydia Pneumoniae Not Detected (NOT DETECT); Influenza A Not Detected (NOT DETECT); Influenza A H1 Not Detected (NOT DETECT); Influenza A H1-2009 Not Detected (NOT DETECT); Influenza A H3 Not Detected (NOT DETECT); Influenza B Not Detected (NOT DETECT); Mycoplasma Pneumoniae Not Detected (NOT DETECT); Parainfluenza Virus Type 1 Not Detected (NOT DETECT); Parainfluenza Virus Type 2 Not Detected (NOT DETECT); Parainfluenza Virus Type 3 Not Detected (NOT DETECT); Parainfluenza Virus Type 4 Not Detected (NOT DETECT); Respiratory Syncytial Virus A Not Detected (NOT DETECT); Respiratory Syncytial Virus B Not Detected (NOT DETECT)
[2022-04-17 10:12] LABS: Adenovirus Detected (NOT DETECT); Results from GENMARK
[2022-04-17 10:41] VITALS: BP 138/71; PULSE 71; RESP 16; O2SAT 98
== END 2022-04-17 10:42 | disposition home or self-care (01) ==
PROVIDERS: Emergency Provider Emergency Medicine
DX: J02.8 Acute pharyngitis due to other specified organisms (principal); B97.0 Adenovirus as the cause of diseases classified elsewhere; Z20.822 Contact with and (suspected) exposure to COVID-19; F17.210 Nicotine dependence, cigarettes, uncomplicated
CPT/HCPCS: 87081; 87635; 87798; 87801; 87880; 96372; 99284; J1885

== ENCOUNTER → 2022-04-18 19:22 | Outpatient (BNVA) | payer BC, SELFPAY | PROVIDERS: Visit Provider Emergency Medicine | DX: J02.9 Acute pharyngitis, unspecified (principal) | CPT/HCPCS: 87071; 87880 ==

== ENCOUNTER 2022-07-12 09:34 | Emergency (ER) | payer BC, SELFPAY ==
[2022-07-12 09:40] VITALS: BP 179/101; PULSE 55; RESP 15; TEMP 36.4; O2SAT 100
--- NOTE | 2022-07-12 09:47 | ED_ITS ---
HPI - Nausea/Vomiting/Diarrhea General: Chief complaint: Nausea/Vomiting/Diarrhea Stated complaint: n/v Time Seen by Provider: 07/12/22 09:37 Source: patient Mode of arrival: ambulatory History of Present Illness: 32-year-old female presents emergency room complaining of generally not feeling well nausea vomiting cough abdominal pain body aches weakness for the last 2 days no dysuria urgency or frequency no diarrhea. Cough nonproductive. MD elicited complaint: nausea and vomiting Onset (ago): day(s) (2) Description of vomiting: food contents and watery Associated nausea: Yes Location of pain: Diffuse Severity: mild Quality: aching Exacerbating factors: none Relieving factors: none Associated symtoms: Reports cough, anorexia, myalgias and nausea; Denies altered mental status, anxiety, bloating, change in vision, chest pain, diaphoresis, decreased urine output, dizziness, dysuria, epistaxis, fatigue, fecal incontinence, fevers/chills, headache(s), malaise, numbness, palpitations, rash, short of breath, syncope, tenesmus, tinnitus or weakness Review of Systems Const: Denies: fever(s), chills, fatigue, malaise or diaphoresis Eyes: Denies: change in vision ENMT: Denies: tinnitus or epistaxis Card: Denies: chest pain, palpitations or syncope Resp: Denies: dyspnea, productive cough or non-productive cough GI: Reports: abdominal pain, nausea, vomiting and GI cramping; Denies: diarrhea, bloating or fecal incontinence : Denies: dysuria, urinary frequency or urinary urgency Skin/Breast: Denies: rash or pruritus Neuro: Denies: headache(s) or dizziness Psych: Denies: anxiety PFSH ED PFSH: Medical History Colitis Cyclical vomiting Surgical History No significant past surgical history Social History Smoking and tobacco status: current every day smoker Alcohol intake: current Female Reproductive History: Date of last menstrual period: 03/11/21 Physical Exam Const: COMMON NORMALS: no acute distress EXAM LIMITATIONS: no altered mental status GENERAL APPEARANCE: cooperative and comfortable ORIENTATION/CONSCIOUSNESS: Yes awake, Yes oriented to person, Yes oriented to place and Yes oriented to time HENMT: COMMON NORMALS: normocephalic, atraumatic and hearing grossly normal bilaterally HEAD & SCALP: normocephalic and atraumatic Resp: COMMON NORMALS: normal respiratory effort, No retractions, No use of accessory muscles and clear to auscultation bilaterally AUSCULTATION: clear to auscultation bilaterally Cardio: COMMON NORMALS: regular rate, regular rhythm and No murmurs present (Cardio) RATE: regular rate RHYTHM: regular rhythm GI: COMMON NORMALS: Soft to palpation and No hepatosplenomegaly present AUSCULTATION: Yes normoactive bowel sounds PALPATION: Yes Soft to palpation, Yes Tenderness to palpation present (GI) (Diffuse), No Guarding due to palpation present (GI) and Yes No hepatosplenomegaly present Extremity: COMMON NORMALS: normal to inspection, capillary refill normal, no clubbing, cyanosis or edema, no calf tenderness and no pedal edema Neuro: SENSORIUM/ORIENTATION: Yes oriented to person, Yes oriented to place and Yes oriented to time Skin: COMMON NORMALS: no rashes or lesions noted GENERAL SKIN EXAM: no rashes or lesions noted Course Vital Signs: Vital signs: Vital Signs Temperature 97.5 F L 07/12/22 09:40 Pulse Rate 56 L 07/12/22 12:09 Respiratory Rate 15 07/12/22 09:40 Blood Pressure 190/97 07/12/22 12:09 Pulse Oximetry 100 07/12/22 12:09 Oxygen Delivery Me thod 07/12/22 11:09 MDM - Nausea/Vomiting/Diarrhea Medical Decision Making Symptoms improved. She but did not completely resolve gave her Haldol IV which significantly improved the symptoms. She does admit to regular use of marijuana suspect she has hyperemesis cannabinoid given her presentation. Gave her olanzapine and Ativan to use as needed discussed the role of marijuana and causing persistent nausea and vomiting. Medical Records I reviewed the patient's medical records. Lab Data I reviewed the patient's lab results. 07/12/22 09:55 07/12/22 09:55 Laboratory Results WBC 13.0 10^3/uL (4.0-10.0) H 07/12/22 09:55 RBC 5.32 10^6/uL (4.1-5.3) H 07/12/22 09:55 Hgb 15.7 g/dL (11.5-15.3) H 07/12/22 09:55 Hct 48.6 % (37.0-47.0) H 07/12/22 09:55 MCV 91.4 fl (81-99) 07/12/22 09:55 MCH 29.5 pg (28.0-34.0) 07/12/22 09:55 MCHC 32.3 g/dL (30.0-36.0) 07/12/22 09:55 RDW 13.8 % (12.1-15.1) 07/12/22 09:55 Plt Count 334 10^3/cmm (130-400) 07/12/22 09:55 MPV 10.7 fL (7.4-10.4) H 07/12/22 09:55 Neut % (Auto) 84.2 % 07/12/22 09:55 Lymph % (Auto) 10.2 % 07/12/22 09:55 [place] % (Auto) 4.2 % 07/12/22 09:55 Eos % (Auto) 0.4 % 07/12/22 09:55 Baso % (Auto) 0.5 % 07/12/22 09:55 Neut # (Auto) 10.93 10^3/uL (1.8-7.7) H 07/12/22 09:55 Lymph # (Auto) 1.3 10^3/uL (0.8-4.8) 07/12/22 09:55 [place] # (Auto) 0.6 10^3/uL (0.2-0.9) 07/12/22 09:55 Eos # (Auto) 0.1 10^3/uL (0.0-0.8) 07/12/22 09:55 Baso # (Auto) 0.1 10^3/uL (0.0-0.1) 07/12/22 09:55 Nucleated RBC % (auto) 0 % 07/12/22 09:55 Nucleated RBCs # 0.0 /100WBC 07/12/22 09:55 Sodium 139 mmol/L (136-145) 07/12/22 09:55 Potassium 4.2 mmol/L (3.5-5.1) 07/12/22 09:55 Chloride 100 mmol/L (98-107) 07/12/22 09:55 Carbon Dioxide 27 mmol/L (22-29) 07/12/22 09:55 Anion Gap 16.2 (5-19) 07/12/22 09:55 BUN 14 mg/dL (6-20) 07/12/22 09:55 Creatinine 0.6 mg/dL (0.5-0.9) 07/12/22 09:55 GFR Calculation 116.6 mL/min (90-130) 07/12/22 09:55 Glucose 126 mg/dL (65-115) H 07/12/22 09:55 Calculated Osmolality 290 mOsm/kg (285-295) 07/12/22 09:55 Calcium 9.6 mg/dL (8.5-10.5) 07/12/22 09:55 Total Bilirubin 1.1 mg/dL (0.15-1.2) 07/12/22 09:55 AST 19 U/L (0-32) 07/12/22 09:55 ALT 22 U/L (0-33) 07/12/22 09:55 Alkaline Phosphatase 68 U/L (35-105) 07/12/22 09:55 Total Protein 8.3 g/dL (6.6-8.7) 07/12/22 09:55 Albumin 5.1 g/dL (3.5-5.2) 07/12/22 09:55 Globulin 3.2 g/dL (1.3-4.6) 07/12/22 09:55 HCG, Qual Negative (Negative) 07/12/22 09:55 Urine Color Dark yellow (Yellow) 07/12/22 10:44 Urine Appearance Sl hazy (CLEAR) A 07/12/22 10:44 Urine pH 7 (5-7) 07/12/22 10:44 Ur Specific [place] 1.020 (1.005-1.030) 07/12/22 10:44 Urine Protein Neg (Negative) 07/12/22 10:44 Urine Glucose (UA) Norm (Normal) 07/12/22 10:44 Urine Ketones Negative (Negative) 07/12/22 10:44 Urine Blood Neg (Negative) 07/12/22 10:44 Urine Nitrate Negative (Negative) 07/12/22 10:44 Urine Bilirubin Neg (Negative) 07/12/22 10:44 Urine Urobilinogen 1 mg/dL (Negative) H 07/12/22 10:44 Ur Leukocyte Esterase Negative (Negative) 07/12/22 10:44 Urine RBC None /hpf (0-2) 07/12/22 10:44 Urine WBC 0-4 /hpf (0-5) H 07/12/22 10:44 Ur Squamous Epith Cells 15-25 /hpf (0-5) H 07/12/22 10:44 Amorphous Sediment 1+ /hpf 07/12/22 10:44 Urine Bacteria 1+ /hpf (NONE) H 07/12/22 10:44 Influenza Type A Ag negative (Negative) 07/12/22 10:10 Influenza Type B Ag negative (Negative) 07/12/22 10:10 Discharge Plan Discharge Patient Disposition: Home Clinical Impression: Cannabinoid hyperemesis syndrome Condition: Stable Prescriptions: New olanzapine 10 mg tablet,disintegrating 10 mg PO Q8H PRN (Reason: nausea and vomiting) Qty: 14 0RF Ativan 2 mg tablet 2 mg buccal Q6H PRN (Reason: nausea and vomiting) Qty: 10 0RF No Action amoxicillin 875 mg tablet 875 mg PO BID 10 Days Qty: 20 0RF ibuprofen 600 mg tablet 600 mg PO Q8H PRN (Reason: pain) Qty: 30 0RF diclofenac sodium 75 mg tablet,delayed release (DR/EC) 75 mg PO BID Qty: 30 0RF Discharge Orders: Discharge ED (Routine); Ordered 07/12/22 Ordered By: Nathan Cotton Discharge Diet: Clear Liquid Discharge Activity: Increase activity as tolerated Patient Instructions: Opioid Safety, Pain Management Activity Restrictions/Additional Instructions: You are seen for persistent nausea and vomiting. Your flu swabs were negative. Blood pressure was initially quite elevated and then improved. White count is slightly elevated. Manual laboratory tests were negative. Suspect the protracted nausea vomiting may have to do with regular use of marijuana recommend that you cut back on that. You are given prescriptions for lorazepam and olanzapine to use as needed for nausea and vomiting. If you have any worsening or changes symptoms return. Do recommend clear liquid diet for the next 48 hours. Coding Level of Care Code ED In Classroom T[employer] for [place] Fwd Exam Detailed
[2022-07-12 10:00] VITALS: BP 164/110; PULSE 42; O2SAT 100
[2022-07-12] MEDS: sodium chloride 0.9% 1,000 ML 999 ML IV ×2 (10:04→11:06)
[2022-07-12] MEDS: ondansetron 2 mg/ML SDV 2 mL 4 MG IVP (10:06)
[2022-07-12 10:08] LABS: Basophils # 0.1 10^3/uL (0.0-0.1); Basophils % 0.5 %; Eosinophils # 0.1 10^3/uL (0.0-0.8); Eosinophils % 0.4 %; Hematocrit 48.6 % (37.0-47.0); Hemoglobin 15.7 g/dL (11.5-15.3); Lymphocytes # 1.3 10^3/uL (0.8-4.8); Lymphocytes % 10.2 %; Mean Corpuscular HGB Conc 32.3 g/dL (30.0-36.0); Mean Corpuscular Hemoglobin 29.5 pg (28.0-34.0); Mean Corpuscular Volume 91.4 fl (81-99); Mean Platelet Volume 10.7 fL (7.4-10.4); Monocytes # 0.6 10^3/uL (0.2-0.9); Monocytes % 4.2 %; Neutrophils # 10.93 10^3/uL (1.8-7.7); Neutrophils % 84.2 %; Nucleated Red Blood Cells % 0 %; Platelet Count 334 10^3/cmm (130-400); Red Blood Count 5.32 10^6/uL (4.1-5.3); Red Cell Distribution Width 13.8 % (12.1-15.1)
[2022-07-12 10:31] LABS: HCG, Serum Qual Negative (Negative)
[2022-07-12 10:38] LABS: Alanine Aminotransferase 22 U/L (0-33); Albumin Level 5.1 g/dL (3.5-5.2); Alkaline Phosphatase 68 U/L (35-105); Aspartate Amino Transferase 19 U/L (0-32); Blood Urea Nitrogen 14 mg/dL (6-20); Calcium 9.6 mg/dL (8.5-10.5); Carbon Dioxide 27 mmol/L (22-29); Chloride 100 mmol/L (98-107); Globulin 3.2 g/dL (1.3-4.6); Glomerular Filtration Rate 116.6 mL/min (90-130); Glucose 126 mg/dL (65-115); Osmolality Calculated 290 mOsm/kg (285-295); Sodium 139 mmol/L (136-145); Total Bilirubin 1.1 mg/dL (0.15-1.2); Total Protein 8.3 g/dL (6.6-8.7)
[2022-07-12 10:43] LABS: Influenza A by IFA negative (Negative); Influenza B by IFA negative (Negative)
[2022-07-12 11:09] VITALS: BP 182/108; PULSE 43; O2SAT 100
[2022-07-12 11:12] LABS: Anion Gap 16.2 (5-19); Potassium 4.2 mmol/L (3.5-5.1)
[2022-07-12 11:37] LABS: Add Urine Microscopic? YES; Bilirubin Urine Neg (Negative); Blood Urine Neg (Negative); Glucose Urine UA Norm (Normal); Ketones Urine Negative (Negative); Leukocyte Esterase Urine Negative (Negative); Nitrate Urine Negative (Negative); Protein Urine Neg (Negative); Urine Appearance SL Hazy (CLEAR); Urine Color Dark Yellow (Yellow); Urobilinogen Urine 1 mg/dL (Negative); pH Urine 7 (5-7)
[2022-07-12 11:38] LABS: Add Urine Culture? No; Amorphous Sediment Urine 1+ /hpf; Bacteria Urine 1+ /hpf; Squamous Epithelial Cell Urine 15-25 /hpf (0-5); WBC Urine 0-4 /hpf (0-5)
[2022-07-12] MEDS: haloperidol inj 5 mg/mL INJ 1 mL 2.5 MG IVP (12:01)
[2022-07-12 12:09] VITALS: BP 190/97; PULSE 56; O2SAT 100
== END 2022-07-12 12:10 | disposition home or self-care (01) ==
PROVIDERS: Emergency Provider Family Medicine
DX: R11.2 Nausea with vomiting, unspecified (principal); F12.90 Cannabis use, unspecified, uncomplicated; I10 Essential (primary) hypertension; F17.210 Nicotine dependence, cigarettes, uncomplicated
CPT/HCPCS: 80053; 81001; 84703; 85025; 87804; 96361; 96374; 96375; 99284; J1630; J2405; J7030

== ENCOUNTER 2022-12-03 16:48 | Emergency (ER) | payer BC, SELFPAY ==
--- NOTE | 2022-12-03 16:58 | XRR_ITS ---
PROCEDURE INFORMATION: Exam: XR Sacrum and Coccyx, 2 or More Views Exam date and time: 12/03/2022 5:05 PM Age: 32 years old Clinical indication: Pain in coccyx area; Additional info: Fall TECHNIQUE: Imaging protocol: XR of the sacrum and coccyx, 2 or more views. COMPARISON: CT abdomen pelvis w con* [id number] 09/11/2021 6:02 AM FINDINGS: Bones/joints: No acute fracture. No dislocation. Normal bone mineralization. No joint effusion. Joint spaces are maintained. Soft tissues: No soft tissue swelling. No radiopaque foreign body. XR/XR coccyx 2V [id number] IMPRESSION: No acute fracture. CT scan of the sacrum/coccyx would be recommended if clinical concern for fracture persists.
[2022-12-03 17:18] VITALS: BMI 25.7
--- NOTE | 2022-12-03 17:34 | W.ED.FALL ---
HPI - Fall General: Chief Complaint: Fall Stated Complaint: Fall, Tailbone injury Time Seen by Provider: 12/03/22 17:17 Source: patient Mode of arrival: ambulatory History of Present Illness: 32-year-old female female states that she tripped over her cat and fell directly on her buttocks states this happened is prior arrival she states she has severe pain over her tailbone states is much worse to set improved with rest. She denies any back pain denies any abdominal pain denies hitting her head denies other injuries rates her pain a 6 out of 10 currently. Associated symptoms-after fall: Denies abdominal pain, chest pain or headache(s) Review of Systems Const: Denies: fever(s) Eyes: Denies: eye discomfort ENMT: Denies: throat pain Card: Denies: chest pain GI: Denies: abdominal pain Musc: Denies: extremity pain Skin/Breast: Denies: rash Neuro: Denies: headache(s) PFSH ED PFSH: Medical History Colitis Cyclical vomiting Surgical History No significant past surgical history Social History Smoking and tobacco status: current every day smoker Alcohol intake: current Substance/Drug Use: current Other substance/drug use details: +marijuana Female Reproductive History: Date of last menstrual period: 09/08/22 Physical Exam Const: COMMON NORMALS: no acute distress and patient oriented x3 HENMT: COMMON NORMALS: normocephalic HEAD & SCALP: normocephalic Eye: COMMON NORMALS: conjunctivae normal CONJUNCTIVA: Yes conjunctivae normal Neck/C-Spine: COMMON NORMALS: supple Chest: COMMONS NORMALS: normal inspection of the chest Resp: COMMON NORMALS: normal respiratory effort Cardio: COMMON NORMALS: regular rate RATE: regular rate GI: INSPECTION: Yes normal to inspection Back/Pelvis: OTHER: tenderness over tailbone Extremity: COMMON NORMALS: normal to inspection Neuro: COMMON NORMALS: patient oriented x3 Psych: COMMON NORMALS: mental status grossly normal Skin: COMMON NORMALS: no rashes or lesions noted GENERAL SKIN EXAM: no rashes or lesions noted MDM - Fall Medical Decision Making Patient presents here with a fall straight onto her buttocks x-ray appears to be likely coccyx fracture she has no leg weakness she is able to stand and ambulate her tenderness is directly over her coccyx no lumbar tenderness she has no abdominal complaints she is stable for discharge she is to ice set on a donut her pad we will write her a few hydrocodone's warned her with her she should try Tylenol first if its not working only use the hydrocodone as a must for breakthrough pain Medical Records I reviewed the patient's medical records. Lab Data Radiology Impressions Coccyx X-Ray 12/03/22 16:58 IMPRESSION: No acute fracture. CT scan of the sacrum/coccyx would be recommended if clinical concern for fracture persists. Discharge Plan Discharge Patient Disposition: Home Clinical Impression: Fall, Injury of coccyx Condition: Stable Prescriptions: New hydrocodone-acetaminophen 5-325 mg tablet 1 tab PO Q6H PRN (Reason: pain) Qty: 10 0RF Discharge Orders: Discharge ED (Routine); Ordered 12/03/22 Ordered By: León Masters Referrals: Adriano Beltran MD [Primary Care Provider] - 1-3 days Discharge Diet: Advance as tolerated Discharge Activity: Resume usual activity Patient Instructions: Coccyx Injury (ED), Opioid Safety Coding Level of Care Code ED [employer] for [place]
[2022-12-03] MEDS: HYDROcodone-acetaminophen 7.5-325 mg Tablet 1 TAB PO (17:40)
[2022-12-03 17:47] VITALS: BP 134/78; PULSE 102; O2SAT 99
== END 2022-12-03 17:48 | disposition home or self-care (01) ==
PROVIDERS: Emergency Provider Emergency Medicine; PCP Pediatrics
DX: S39.92XA Unspecified injury of lower back, initial encounter (principal); F17.210 Nicotine dependence, cigarettes, uncomplicated; W01.0XXA Fall on same level from slipping, tripping and stumbling without subsequent striking against object, initial encounter
CPT/HCPCS: 72220; 99283

== ENCOUNTER → 2023-04-29 09:52 | Outpatient (BNVA) | payer BC, SELFPAY | PROVIDERS: PCP Pediatrics; Visit Provider Nurse Practitioner Family | DX: R39.9 Unspecified symptoms and signs involving the genitourinary system (principal) | CPT/HCPCS: 81000 ==

== ENCOUNTER 2023-06-04 19:00 | Inpatient (IN) | payer BC, MEDICAID, SELFPAY ==
[2023-06-04] VITALS (56 sets, daily range): BP systolic 99–160; BP diastolic 58–95; PULSE 68–118; RESP 16–18; TEMP 35.8–36.7; O2SAT 98–100; BMI 31.4
[2023-06-04 11:31] LABS: Amphetamines Screen Urine Negative (Negative); Barbiturates Screen Urine Negative (Negative); Benzodiazepines Screen Urine Negative (Negative); Cocaine Screen Urine Negative (Negative); Opiate Screen Urine Negative (Negative); PCP Screen Urine Negative (Negative); THC Screen Urine Positive (Negative)
[2023-06-04 11:41] LABS: Glucose Urine UA Norm (Normal); Ketones Urine 1+ (Negative); Protein Urine Neg (Negative); Urine Appearance Clear (CLEAR); Urine Color Yellow (Yellow); pH Urine 7 (5-7)
[2023-06-04 11:42] LABS: Bilirubin Urine Neg (Negative); Blood Urine Neg (Negative); Leukocyte Esterase Urine Negative (Negative); Nitrate Urine Negative (Negative); Urine Creatinine 177 mg/dL (28-217); Urobilinogen Urine 1 mg/dL (Negative)
[2023-06-04 11:43] LABS: Add Urine Culture? No; Bacteria Urine 1+ /hpf; RBC Urine 0-4 /hpf (0-2); Squamous Epithelial Cell Urine 15-25 /hpf (0-5); WBC Urine 0-4 /hpf (0-5)
[2023-06-04 11:44] LABS: UPRO/UCREAT Ratio 0.18 mg/mg CR; Urine Protein Random 32 mg/dL
[2023-06-04] MEDS: dextrose 5%-lactated ringers 1,000 ML 125 ML IV ×2 (13:05→17:56)
[2023-06-04] MEDS: oxytocin 30 UNIT/500 ML BAG IV (13:06)
[2023-06-04 13:10] LABS: Basophils # 0.1 10^3/uL (0.0-0.1); Basophils % 0.7 %; Eosinophils # 0.2 10^3/uL (0.0-0.8); Eosinophils % 1.5 %; Hematocrit 34.9 % (36-47); Lymphocytes # 1.5 10^3/uL (0.8-4.8); Lymphocytes % 14.7 %; Mean Corpuscular HGB Conc 32.7 g/dL (30-55); Mean Corpuscular Hemoglobin 28.5 pg (27-33); Mean Corpuscular Volume 87.3 fl (85-98); Mean Platelet Volume 12.3 fL (7.4-10.4); Monocytes # 0.6 10^3/uL (0.2-0.9); Monocytes % 5.3 %; Neutrophils # 7.94 10^3/uL (1.8-7.7); Neutrophils % 76.3 %; Nucleated Red Blood Cells % 0 %; Platelet Count 256 10^3/cmm (157-399); Red Cell Distribution Width 14.3 % (12.1-15.1); White Blood Count 10.41 10^3/uL (3.29-11.43)
[2023-06-04 13:35] LABS: Albumin Level 3.6 g/dL (3.5-5.2); Chloride 101 mmol/L (98-107); Globulin 3.5 g/dL (1.3-4.6); Glucose 69 mg/dL (65-115); Potassium 4.1 mmol/L (3.5-5.1); Total Protein 7.1 g/dL (6.6-8.7)
[2023-06-04] MEDS: lactated ringers 1,000 ML 999 ML IV (13:40)
[2023-06-04 13:50] LABS: Blood Urea Nitrogen 14 mg/dL (6-20); Calcium 9.3 mg/dL (8.5-10.5); Glomerular Filtration Rate 116.6 mL/min (90-130); Total Bilirubin 0.6 mg/dL (0.15-1.2)
[2023-06-04 13:51] LABS: Alanine Aminotransferase 160 U/L (0-33); Alkaline Phosphatase 217 U/L (35-105); Anion Gap 19.1 (5-19); Aspartate Amino Transferase 127 U/L (0-32); Carbon Dioxide 17 mmol/L (22-29); Osmolality Calculated 275 mOsm/kg (285-295); Sodium 133 mmol/L (136-145); Uric Acid 6.6 mg/dL (2.4-5.7)
--- NOTE | 2023-06-04 14:19 | P.HP_ITS ---
Providers/Chief Complaint 2 Primary Care Provider: Adriano Beltran MD Chief Complaint: contractions since yesterday History of Present Illness Note: Walk-in hit list patient. Karuna Craig is a 32 year old female -0-0-2 at 39 weeks 1 day gestation with a EDC of 06/10/2023 who presented to labor and delivery complaining of elevated blood pressure and elevated liver enzymes. She was getting care at [facility] with a nurse practitioner Dayana. Her last visit was 4 days ago on Wednesday and there was reportedly some concern for preeclampsia. Laboratory work was ordered and the patient was sent home. She received a message on Wednesday stating that her lab work was abnormal, specifically that her liver enzymes were elevated, and that she should present to the hospital for further evaluation. She is here today for that reason and is complaining of contractions about every 5 minutes. She denies any bleeding or loss of fluid. [facility] labs were drawn: AST 127, ALT 160, urinalysis negative for protein, protein creatinine ratio 0.18, platelets 256, UDS positive for THC. Of note her liver enzymes are elevated. She does not complain of any right upper quadrant pain but states that for the past week she has had more indigestion and vomiting. Her blood pressure is mildly elevated at 140/95. Upon further questioning the patient states that she has elevated blood pressure outside of . She has not been called chronic hypertensive and her records. She has not been on any blood pressure medicines during the . 2 years ago she was on blood pressure medicine briefly but had side effects and stopped taking it. She does not complain of any significant headache, scotomata or swelling. Review of Systems 2 Const: Denies: fever(s) or chills Eyes: Denies: eye redness Card: Reports: lightheadedness; Denies: chest pain, edema or leg pain with exertion Resp: Denies: productive cough, non-productive cough or wheezing GI: Reports: nausea, vomiting and belching; Denies: abdominal pain or change in bowel habits : Denies: flank pain or difficulty voiding Musc: Denies: joint swelling or limited range of motion Skin/Breast: Denies: rash Neuro: Denies: numbness in extremities, weakness in extremities or difficulty walking Psych: Reports: change in appetite (Not eating as much) [place]/Lymph: Denies: easy bruising or easy bleeding All/Imm: Denies: urticaria or throat swelling Medications/Allergies Home Medications Medication Instructions Recorded Confirmed Last Taken Type vit no.133-ferrous 1 tab PO DAILY 06/04/23 06/04/23 Unknown History fumarate 28 mg-folic acid 800 mcg tablet () Allergies Allergy/AdvReac Type Severity Reaction Status Date / Time tramadol Allergy ALGY-Watery Verified 04/29/23 09:48 Eye PFSH Acute 2 PFSH: Medical History Colitis Cyclical vomiting Surgical History No significant past surgical history Social History (Updated 06/04/23 @ 14:34 by Dee Mcgrath MD) Smoking and tobacco/nicotine status: current every day tobacco/nicotine user Alcohol intake: former Substance/Drug Use: current Other substance/drug use details: +marijuana Female Reproductive History: : 3 Para: 2 Spontaneous abortions: N o Other female reproductive history: She has had 2 prior full-term normal spontaneous vaginal deliveries over 15 years ago. She denies any complications during those pregnancies or deliveries. labs: Blood type O+ antibody negative, hepatitis C negative, gonorrhea chlamydia negative, Q low risk, 1 hour glucose tolerance test 115, RPR nonreactive, hepatitis B surface antigen nonreactive, rubella nonimmune, HIV nonreactive, GBS negative. Vitals/I&O/Wt Last Vital Signs Temp 97.5 F L 06/04/23 10:59 Pulse 83 06/04/23 14:03 BP 138/80 06/04/23 14:03 O2 Del Method Room Air 06/04/23 12:15 06/03/23 06/04/23 06/04/23 22:59 06:59 14:59 Intake Total 2.3 / 2.3 Balance 2.3 / 2.3 Weight last 48 hrs Weight 83.007 kg Physical Exam 2 Const: COMMON NORMALS: no acute distress and patient oriented x3 HENMT: COMMON NORMALS: normocephalic and Normal external nose present Eye: COMMON NORMALS: EOMs intact bilaterally Chest: COMMONS NORMALS: normal inspection of the chest Resp: COMMON NORMALS: normal respiratory effort, No use of accessory muscles and clear to auscultation bilaterally Cardio: COMMON NORMALS: regular rate and regular rhythm GI: COMMON NORMALS: non-tender (gravid) Extremity: COMMON NORMALS: no pedal edema Data 06/04/23 12:30 06/04/23 12:30 Other Labs: AST 127, ALT 160, urinalysis negative for protein, protein creatinine ratio 0.18, platelets 256, UDS positive for THC. A&P Assessment and plan (1) with 39 completed weeks gestation: Due to the fact that she is 39 weeks 1 day gestation with chronic hypertension and elevated liver enzymes it would be advisable to go ahead and have a baby. The patient is amenable to induction. She recently learned from her provider that they do not deliver babies, otherwise I would have discharged her with close follow-up. Her cervix is favorable so we will start her on high-dose Pitocin. She may have an epidural for pain management. Continue expectant management of labor and delivery. (2) Chronic hypertension affecting : The patient has a history of what sounds like borderline chronic hypertension. She was not on any blood pressure medicines during . Her pressures have only been mildly elevated. We will initiate hypertensive protocol if needed. (3) Elevated liver enzymes: Her enzymes are elevated but her platelets are good. I do not suspect HELLP yet it is a consideration. She has had a week of increased GI symptoms and indigestion which may explain her elevated enzymes. I will recheck platelets about 6 hours from the last. (4) Tobacco use during : (5) Marijuana use during : + in urine today Attestations 2 Medical Necessity Statement*: -induced hypertension with need for induction of labor and delivery Coding Level of Care Code Acute Code for Chg Fwd Diagnoses with 39 completed weeks gestation Z3A.39 Chronic hypertension affecting O10.919 Elevated liver enzymes R74.8 Tobacco use during O99.330 Marijuana use during O99.320; F12.90
--- NOTE | 2023-06-04 14:24 | ANES.PREANE2 ---
Pre-Anesthetic Assessment Height/Weight: Height 1.63 m Weight 83.007 kg Temp Pulse BP O2 Del Method 97.5 F L 73 149/79 Room Air 06/04/23 10:59 06/04/23 14:20 06/04/23 14:20 06/04/23 12:15 Preop Diagnosis: labor pain Familial anesthetic complications: epidural Was Beta Taryn taken within 24 hours: N/A Was Clonidine taken within 24 hours: N/A Exam alert, oriented x 3, clear to auscultation bilaterally and regular rate & rhythm Airway Submandibular: within normal limits Cervical ROM: within normal limits Mallampati: Class II Dentition: full History/ROS Other Pulmonary None reported CV/HEM Hypertension None reported Hepatic None reported GI None reported Metabolic None reported Musc/skel None reported Neuropsych None reported Anesthetic Plan ASA status: 2 Anesthesia: Regional (specify below) Risk of > 500 ml blood loss (7ml/kg in children): No Medications/Allergies Home Medications Medication Instructions Recorded Confirmed Last Taken Type vit no.133-ferrous 1 tab PO DAILY 06/04/23 06/04/23 Unknown History fumarate 28 mg-folic acid 800 mcg tablet () Allergies Allergy/AdvReac Type Severity Reaction Status Date / Time tramadol Allergy ALGY-Watery Verified 04/29/23 09:48 Eye Current Medications Generic Name Dose Route Start Last Admin Trade Name Freq PRN Reason Stop Dose Admin Dextrose/Lactated Ringer's 1,000 mls @ 125 mls/hr 06/04/23 12:30 06/04/23 13:05 Dextrose 5%-Lactated Ringers IV 125 mls/hr .Q8H BEATRIZ Administration Lactated Ringer's 1,000 mls @ 999 mls/hr 06/04/23 12:17 06/04/23 13:40 Lactated Ringers IV 999 mls/hr .Q1H1M PRN Administration BLEEDING Oxytocin 30 unit in 500 mls @ 1 mls/hr 06/04/23 12:30 06/04/23 14:00 Pitocin IV 6 milliunit/min .Q24H BEATRIZ 6 mls/hr Titration Protocol 1 MILLIUNIT/MIN Ropivacaine 100 mg in 50 mls @ 10 mls/hr 06/04/23 13:30 06/04/23 13:41 Naropin Syringe EPIDURAL 10 mls/hr .Q5H BEATRIZ Administration PFSH Anesthesia Medical History Colitis Cyclical vomiting Surgical History No significant past surgical history Social History Smoking and tobacco/nicotine status: current every day tobacco/nicotine user Alcohol intake: current Substance/Drug Use: current Other substance/drug use details: +marijuana Female Reproductive History : 3 Data Anesthesia 06/04/23 12:30 06/04/23 12:30 Short CBC 06/04/23 Range/Units 12:30 WBC 10.41 (3.29-11.43) 10^3/uL Hgb 11.40 (11.27-16.99) g/dL Hct 34.9 L (36-47) % MCV 87.3 (85-98) fl Plt Count 256 (157-399) 10^3/cmm Neut % (Auto) 76.3 % Neut # (Auto) 7.94 H (1.8-7.7) 10^3/uL BMP 06/04/23 12:30 Sodium 133 L Potassium 4.1 Chloride 101 Carbon Dioxide 17 L BUN 14 Creatinine 0.6 Glucose 69 Calcium 9.3 Liver Function 06/04/23 Range/Units 12:30 Total Bilirubin 0.6 (0.15-1.2) mg/dL AST 127 H (0-32) U/L ALT 160 H (0-33) U/L Alkaline Phosphatase 217 H (35-105) U/L Albumin 3.6 (3.5-5.2) g/dL Urine 06/04/23 Range/Units 11:00 Urine Color Yellow (Yellow) Urine Appearance Clear (CLEAR) Urine pH 7 (5-7) Ur Specific [place] 1.010 (1.005-1.030) Urine Protein Neg (Negative) Urine Glucose (UA) Norm (Normal) Urine Ketones 1+ H (Negative) Urine Nitrate Negative (Negative) Urine Bilirubin Neg (Negative) Ur Leukocyte Esterase Negative (Negative) Urine RBC 0-4 H (0-2) /hpf Urine WBC 0-4 H (0-5) /hpf Cardiac Studies: No Data to Display
[2023-06-04] MEDS: ROPivacaine syringe 100 MG/50 ML SYRINGE 13 MG EPIDURAL ×2 (14:35→17:56)
--- NOTE | 2023-06-04 14:43 | P.ANES_ITS ---
Anesthesia Procedures Procedure/Date: 06/04/23 epidural Procedure Narrative: epidural complete, bolus given, epidural pump initiated with [employer] education given, vitals taken during procedure and satisfactory throughout, patient admits to decrease pain, report of procedure to OB RN Epidural: Time Out Performed: Yes Consents Signed: Procedure Consent Consent: requested by attending/covering physician, from patient, risks and benefits reviewed and patient agrees to proceed Lumbar Level: L3-L4 Ep idural position: sitting Epidural procedure: sterile prep of area, 1% lidocaine to numb the area (3 mL), 18 g needle, negative for paresthesia passed, neg for paresthesia, test dose given, 1.5% xylocaine 1:200k epi (5 mL), 0.2% Ropivacaine bolus ml (5 mL), placed PCEA, no systemic response, sterile dressing applied, L.U.D. no apparent complications and 0.2% Ropiavacaine @ mls/hr (13 mL/hr)
[2023-06-04] MEDS: ondansetron 2 mg/ML SDV 2 mL 4 MG IVP (19:51)
--- NOTE | 2023-06-04 20:22 | P.PCNOB_ITS ---
Delivery Note: Date of delivery: June 04, 2023 Procedure: Normal spontaneous vaginal delivery Delivering Physician: Dee Mcgrath MD Estimated blood loss (mL): 250 Pre-Delivery Course: This is a 32-year-old G3 now P3 at 39 weeks 1 day gestation who was a walk-in triage for contractions, elevated blood pressure, and elevated liver enzymes. Her was complicated by chronic hypertension but did not require medication. She had been getting care by a nurse practitioner [facility] (formerly [facility]3] who recently told her that she did not deliver. She received a message from her provider that she had abnormal lab work this week and should report to the hospital for further evaluation. She was found to have mildly elevated blood pressures in the 140s. Her AST and ALT were elevated, her platelets were within normal range labs: Blood type O+, antibody negative, GC chlamydia negative, hepatitis B nonreactive, hepatitis C nonreactive, RPR nonreactive, HIV nonreactive, rubella nonimmune, she passed her 1 hour glucose tolerance test, she was GBS negative. Rupture of membranes was approximately 5 hours prior to delivery. Delivery: The patient cervix was favorable and she was started on high-dose Pitocin. She received an epidural for pain management. She had artificial rupture of membranes with a copious amount of clear fluid. Subjectively I would call her polyhydramnios. When she was complete and +2 station she only had to push th rough 3 contractions when she had a normal spontaneous vaginal delivery of a viable female infant weight 3530 g, 7 pounds 13 ounces, Apgars 8 and 9 over an intact perineum. The infant was suctioned at delivery and placed on the mother's chest. The cord was clamped and cut. The placenta was delivered grossly intact and normal to inspection. There were no lacerations. Mother and infant were doing well after delivery. A&P Assessment and plan (1) Normal spontaneous vaginal delivery: Routine care (2) Elevated liver enzymes: Recommend follow-up with her PCP after discharge (3) Chronic hypertension affecting : We will continue to monitor blood pressures. They still remain mild. If she has repetitive severely elevated blood pressures we will initiate antihypertensive medicine (4) Marijuana use during : Per policy she will be been reported to DFS (5) Tobacco use during : Coding Level of Care Code Acute Code for Chg Fwd Diagnoses Normal spontaneous vaginal delivery O80 Elevated liver enzymes R74.8 Chronic hypertension affecting O10.919 Marijuana use during O99.320; F12.90 Tobacco use during O99.330
[2023-06-05] VITALS (8 sets, daily range): BP systolic 119–149; BP diastolic 72–89; PULSE 7–82; RESP 16–18; TEMP 36.3–36.8; O2SAT 97–100
[2023-06-05] MEDS: ibuprofen 800 mg tablet PO ×3 (00:48→14:32)
[2023-06-05] MEDS: prenatal vitamin Capsule 1 CAP PO (08:06)
[2023-06-05] MEDS: docusate sodium 100 mg Capsule PO ×2 (08:06→16:44)
--- NOTE | 2023-06-05 08:06 | ANE.PACU2 ---
Inpatient post-anesthesia follow up: Airway intact: Yes Vital signs: Temperature 97.8 F Pulse Rate 74 Respiratory Rate 18 Blood Pressure 149/85 Pulse Oximetry 98 Oxygen Delivery Me thod Room Air Oxygen Flow Rate Fraction of Inspir ed Oxygen Hydration adequate: Yes Nausea and vomiting: No Pain level: 1 Mental status: Baseline
--- NOTE | 2023-06-05 08:20 | PC.NURSE ---
Temitope from Child's division at bedside, This RN at bedside.
[2023-06-05 09:40] LABS: Hematocrit 31.2 % (36-47); Mean Corpuscular HGB Conc 32.1 g/dL (30-55); Mean Corpuscular Hemoglobin 28.2 pg (27-33); Mean Corpuscular Volume 88.1 fl (85-98); Platelet Count 231 10^3/cmm (157-399); Red Blood Count 3.54 10^6/uL (3.85-5.65); Red Cell Distribution Width 14.2 % (12.1-15.1); White Blood Count 12.25 10^3/uL (3.29-11.43)
[2023-06-05] MEDS: acetaminophen 325 mg Tablet 650 MG PO (11:57)
[2023-06-05] MEDS: hyDROXYzine 25 mg Capsule 50 MG PO (14:32)
[2023-06-05] MEDS: ketorolac 60 mg/2 mL INJ IM (16:44)
--- NOTE | 2023-06-05 19:59 | PM.DCS ---
Discharge Providers Date of Admission: 06/04/23 19:00 Date of Discharge: June 05, 2023 Attending Provider at Admission: Dee Mcgrath MD Attending Provider at Discharge: Dee Mcgrath MD Primary Care Provider: Adriano Beltran MD Diagnoses at Discharge Discharge Diagnosis (1) Normal spontaneous vaginal delivery: Status: Acute (2) Elevated liver enzymes: Status: Acute (3) Chronic hypertension affecting : Status: Acute (4) Marijuana use during : Status: Acute (5) Tobacco use during : Status: Acute Reason for Visit Reason for Visit: contractions since yesterday Hospital Course Hospital Course This is a now 33-year-old G3 now P3 who was a walk-in patient presenting with chronic hypertension in , elevated liver enzymes, and regular contractions. She was already 39 weeks and 1 day gestation. PIH labs were ordered and other than elevated liver enzymes were not suggestive of preeclampsia or HELLP. Her blood pressures were mildly elevated. Since she was already 39 weeks decision was made to go ahead and proceed with induction of labor and delivery. She had a normal spontaneous vaginal delivery of a viable female infant. Mother and infant did well after delivery. Mother was ambulating, tolerating a regular diet, had average vaginal bleeding and was comfortable with discharge home. Physical Exam Narrative: Sleeping in bed, easily arousable, heart regular rate and rhythm, lungs clear to auscultation bilaterally, abdomen soft and nontender, fundus firm and U -3, extremities have no calf tenderness and only trace edema. Urinary Catheter Management: Olivares: Cath Placed During This Visit: yes, but has since been removed by the nurse Reason for Continuing Indwelling Catheter: Decision to DC Catheter Urinary Catheter Date of Insertion: 06/04/23 Urinary Catheter Time of Insertion: 14:50 Date Urinary Catheter Removed: 06/04/23 Time Urinary Catheter Discontinued: 20:00 Discharge Data Studies Completed and Pending Laboratory Results WBC 12.25 10^3/uL (3.29-11.43) H 06/05/23 09:13 RBC 3.54 10^6/uL (3.85-5.65) L 06/05/23 09:13 Hgb 10.00 g/dL (11.27-16.99) L 06/05/23 09:13 Hct 31.2 % (36-47) L 06/05/23 09:13 MCV 88.1 fl (85-98) 12/02/23 09:13 MCH 28.2 pg (27-33) 06/05/23 09:13 MCHC 32.1 g/dL (30-55) 06/05/23 09:13 RDW 14.2 % (12.1-15.1) 06/05/23 09:13 Plt Count 231 10^3/cmm (157-399) 06/05/23 09:13 MPV 12.0 fL (7.4-10.4) H 06/05/23 09:13 Neut % (Auto) 76.3 % 06/04/23 12:30 Lymph % (Auto) 14.7 % 06/04/23 12:30 [place] % (Auto) 5.3 % 06/04/23 12:30 Eos % (Auto) 1.5 % 06/04/23 12:30 Baso % (Auto) 0.7 % 06/04/23 12:30 Neut # (Auto) 7.94 10^3/uL (1.8-7.7) H 06/04/23 12:30 Lymph # (Auto) 1.5 10^3/uL (0.8-4.8) 06/04/23 12:30 [place] # (Auto) 0.6 10^3/uL (0.2-0.9) 06/04/23 12:30 Eos # (Auto) 0.2 10^3/uL (0.0-0.8) 06/04/23 12:30 Baso # (Auto) 0.1 10^3/uL (0.0-0.1) 06/04/23 12:30 Nucleated RBC % (auto) 0 % 06/04/23 12:30 Nucleated RBCs # 0.0 /100WBC 06/04/23 12:30 Sodium 133 mmol/L (136-145) L 06/04/23 12:30 Potassium 4.1 mmol/L (3.5-5.1) 06/04/23 12:30 Chloride 101 mmol/L (98-107) 06/04/23 12:30 Carbon Dioxide 17 mmol/L (22-29) L 06/04/23 12:30 Anion Gap 19.1 (5-19) H 06/04/23 12:30 BUN 14 mg/dL (6-20) 06/04/23 12:30 Creatinine 0.6 mg/dL (0.5-0.9) 06/04/23 12:30 GFR Calculation 116.6 mL/min (90-130) 06/04/23 12:30 Glucose 69 mg/dL (65-115) 06/04/23 12:30 Calculated Osmolality 275 mOsm/kg (285-295) L 06/04/23 12:30 Uric Acid 6.6 mg/dL (2.4-5.7) H 06/04/23 12:30 Calcium 9.3 mg/dL (8.5-10.5) 06/04/23 12:30 Total Bilirubin 0.6 mg/dL (0.15-1.2) 06/04/23 12:30 AST 127 U/L (0-32) H 06/04/23 12:30 ALT 160 U/L (0-33) H 06/04/23 12:30 Alkaline Phosphatase 217 U/L (35-105) H 06/04/23 12:30 Total Protein 7.1 g/dL (6.6-8.7) 06/04/23 12:30 Albumin 3.6 g/dL (3.5-5.2) 06/04/23 12:30 Globulin 3.5 g/dL (1.3-4.6) 06/04/23 12:30 Urine Color Yellow (Yellow) 06/04/23 11:00 Urine Appearance Clear (CLEAR) 06/04/23 11:00 Urine pH 7 (5-7) 06/04/23 11:00 Ur Specific [place] 1.010 (1.005-1.030) 06/04/23 11:00 Urine Protein Neg (Negative) 06/04/23 11:00 Urine Glucose (UA) Norm (Normal) 06/04/23 11:00 Urine Ketones 1+ (Negative) H 06/04/23 11:00 Urine Blood Neg (Negative) 06/04/23 11:00 Urine Nitrate Negative (Negative) 06/04/23 11:00 Urine Bilirubin Neg (Negative) 06/04/23 11:00 Urine Urobilinogen 1 mg/dL (Negative) H 06/04/23 11:00 Ur Leukocyte Esterase Negative (Negative) 06/04/23 11:00 Urine RBC 0-4 /hpf (0-2) H 06/04/23 11:00 Urine WBC 0-4 /hpf (0-5) H 06/04/23 11:00 Ur Squamous Epith Cells 15-25 /hpf (0-5) H 06/04/23 11:00 Amorphous Sediment Not Reportable 06/04/23 11:00 Urine Bacteria 1+ /hpf (NONE) H 06/04/23 11:00 U Random Total Protein 32 mg/dL 06/04/23 11:00 Urine Creatinine 177 mg/dL (28-217) 06/04/23 11:00 Protein/Creatinin Ratio 0.18 mg/mg CR 06/04/23 11:00 Urine Opiates Screen Negative ng/mL (Negative) 06/04/23 11:00 Ur Barbiturates Screen Negative ng/mL (Negative) 06/04/23 11:00 Ur Phencyclidine Scrn Negative ng/mL (Negative) 06/04/23 11:00 Ur Amphetamines Screen Negative ng/mL (Negative) 06/04/23 11:00 U Benzodiazepines Scrn Negative ng/mL (Negative) 06/04/23 11:00 Urine Cocaine Screen Negative ng/mL (Negative) 06/04/23 11:00 U Marijuana (THC) Screen Positive ng/mL (Negative) H 06/04/23 11:00 Blood Type O Positive 06/04/23 12:30 Rho(D) Type Rh positive 06/04/23 12:30 Antibody Screen Negative 06/04/23 12:30 Vitals Last Vital Signs Temp 97.9 F 06/05/23 10:54 Pulse 68 06/05/23 10:54 Resp 16 06/05/23 10:54 BP 119/89 06/05/23 10:54 Pulse Ox 99 06/05/23 10:54 O2 Del Method Room Air 06/05/23 10:54 Discharge Plan Discharge Patient Disposition: Home Condition: Stable Prescriptions: Continued 28-800 mg-mcg Tablet 1 tab PO DAILY Discharge Orders: Discharge Order (Routine); Ordered 06/05/23 Ordered By: Dee Mcgrath Referrals: Dee Mcgrath MD [Physician] - 1 month Discharge Diet: Usual diet Discharge Activity: Limit activity as instructed Patient Instructions: Opioid Safety Activity Restrictions/Additional Instructions: Should pt f/u with another provider, she should have LFT's repeated in 2-4 weeks. NPV for 6 weeks. Discharge Attestations Time Spent in Discharge Care*: less than 30 min Status at Discharge: Cognitive status at discharge: cognitively intact, Behavioral status at discharge: cooperative, Quality Metrics Clinical Quality Measures [ No reported AMI, CVA or VTE this stay] Coding Level of Care Code Acute Code for Chg Fwd Diagnoses Normal spontaneous vaginal delivery O80 Elevated liver enzymes R74.8 Chronic hypertension affecting O10.919 Marijuana use during O99.320; F12.90 Tobacco use during O99.330
== END 2023-06-05 22:00 | disposition home or self-care (01) | DRG 806 ==
LOC: OPOB 20:34 → OBGYN 20:34
PROVIDERS: Absent Provider Family Medicine; Admitting Provider Family Medicine; PCP Pediatrics; Visit Provider Family Medicine
DX: O10.92 Unspecified pre-existing hypertension complicating childbirth (principal); O99.324 Drug use complicating childbirth; Z37.0 Single live birth; Z3A.39 39 weeks gestation of pregnancy; R74.8 Abnormal levels of other serum enzymes; O99.334 Smoking (tobacco) complicating childbirth; F17.210 Nicotine dependence, cigarettes, uncomplicated; F12.90 Cannabis use, unspecified, uncomplicated; O99.892 Other specified diseases and conditions complicating childbirth
CPT/HCPCS: 36415; 51702; 59025; 59409; 80048; 80053; 80306; 81001; 82570; 84156; 84550; 85025; 85027; 86850; 86900; 96372; 96374; 99211; J1885; J2405; J2590; J2795; J7120; J7121

== ENCOUNTER 2024-07-26 17:47 | Emergency (ER) | payer OTHER, MEDICAID, SELFPAY ==
[2024-07-26 17:53] VITALS: BP 155/109; PULSE 88; RESP 18; TEMP 36.7; O2SAT 100; BMI 23.1
[2024-07-26 20:46] LABS: Basophils # 0.1 10^3/uL (0.0-0.1); Basophils % 0.5 %; Eosinophils # 0.1 10^3/uL (0.0-0.8); Eosinophils % 0.9 %; Hematocrit 37.5 % (36-47); Lymphocytes # 2.9 10^3/uL (0.8-4.8); Lymphocytes % 30.2 %; Mean Corpuscular HGB Conc 34.1 g/dL (30-55); Mean Corpuscular Hemoglobin 29.4 pg (27-33); Mean Platelet Volume 10.5 fL (7.4-10.4); Monocytes # 0.5 10^3/uL (0.2-0.9); Monocytes % 4.9 %; Neutrophils # 6.13 10^3/uL (1.8-7.7); Neutrophils % 63.2 %; Nucleated Red Blood Cells % 0 %; Platelet Count 267 10^3/cmm (157-399); Red Blood Count 4.36 10^6/uL (3.85-5.65); Red Cell Distribution Width 14.7 % (12.1-15.1); White Blood Count 9.72 10^3/uL (3.29-11.43)
[2024-07-26 21:14] VITALS: BP 142/91; PULSE 77; RESP 20; O2SAT 100
[2024-07-26 21:15] LABS: Alanine Aminotransferase 11 U/L (0-33); Albumin Level 4.4 g/dL (3.5-5.2); Alkaline Phosphatase 71 U/L (35-105); Anion Gap 16.6 (5-19); Aspartate Amino Transferase 14 U/L (0-32); Blood Urea Nitrogen 13 mg/dL (6-20); Calcium 9.4 mg/dL (8.5-10.5); Carbon Dioxide 22 mmol/L (22-29); Chloride 101 mmol/L (98-107); Creatinine Clr Calc Pharmacy 144.7975; Glomerular Filtration Rate 142.1 mL/min (90-130); Glucose 102 mg/dL (65-115); Osmolality Calculated 282 mOsm/kg (285-295); Potassium 3.6 mmol/L (3.5-5.1); Sodium 136 mmol/L (136-145); Total Bilirubin 0.3 mg/dL (0.15-1.2); Total Protein 7.4 g/dL (6.6-8.7)
--- NOTE | 2024-07-26 21:26 | USR_ITS ---
PROCEDURE INFORMATION: Exam: US After First Trimester, Transabdominal Exam date and time: 07/26/2024 10:56 PM Age: 34 years old Clinical indication: Lmp or gestational age (in weeks): 15w 4d by lmp; Antepartum complications; Bleeding; ; Additional info: Severe lower abd pain, vaginal bleeding, unk preg gestation LABS AND CLINICAL REPORTS: Choriogonadotropin in serum (Serum HCG): 58908 mIU/mL Last menstrual period start date: 04/08/2024 Gestational age (Established): 15 w 4 d Estimated due date (Established): 01/13/2025 TECHNIQUE: Imaging protocol: Real-time transabdominal obstetrical ultrasound of the maternal pelvis and a second or third trimester with image documentation. COMPARISON: CT abdomen pelvis w con* [id number] 09/11/2021 6:02 AM FINDINGS: Gestation: Single live intrauterine gestation. heart rate: 150 bpm presentation and position: Cephalic Placenta: Anterior grade 0 placenta with marginal previa. Amniotic fluid (Qualitative): Amniotic fluid volume is normal. Amniotic fluid index: ANDRÉS is 9.29 cm. ANATOMY: midline falx: midline falx is normal. cerebellum: cerebellum is normal. lateral ventricles: lateral ventricles are normal. cisterna magna: cisterna magna is normal. choroid plexus: choroid plexus is normal. face: Upper lip is not well visualized. heart four-chamber view, heart size and position: heart four-chamber view, size, and position are normal. heart right ventricular outflow tract: Limited by position. heart left ventricular outflow tract: Limited by position. kidneys: kidneys are normal. stomach: stomach is normal. urinary bladder: bladder is normal. spine: No visualized abnormalities of spine. Umbilical cord and insertion: umbilical cord insertion site into the abdomen is normal. 3-vessel umbilical cord upper limbs: arms and hands: No visualized abnormalities of arms/hands. lower limbs: legs and feet: No visualized abnormalities of legs/feet. external genitalia: Obscured. BIOMETRY: Gestational age (AUA): 15 w 2 d Estimated due date (AUA): 01/15/2025 Estimated weight: 116.63 g. EFW by AC, BPD, FL, HC, [place] 1985 Biparietal diameter (BPD): 2.85 cm. EGA (BPD) is 15 w 1 d. 22.8 % percentile Head circumference (HC): 11.13 cm. EGA (HC) is 15 w 3 d. 23.6 % percentile Abdominal circumference (AC): 9.09 cm. EGA (AC) is 15 w 2 d. 42.3 % percentile Femur length (FL): 1.69 cm. EGA (FL) is 15 w 0 d. 22.7 % percentile HC/AC: 1.22. (Normal range: 1.05 - 1.38) FL/HC: 15.18. (Normal range: 14.73 - 16.93) FL/BPD: 59.3 FL/AC: 18.59 MATERNAL: Uterus: Uterus measures 14.53 cm x 9.74 cm x 8.13 cm. Cervix: Cervical length measures 3.6 cm. Right ovary/adnexa: Right ovary measures 2.9 cm x 3 cm x 1.8 cm. Right ovarian volume is 8 mL. Left ovary/adnexa: Left ovary measures 2.9 cm x 2.4 cm x 4.2 cm. Left ovarian volume is 15 mL. Intraperitoneal space: No intraperitoneal free fluid. US/US OB >= 14 weeks fetus [id number] IMPRESSION: Marginal placenta, recommend interval follow-up. Viable single intrauterine gestation as described in detail above.
[2024-07-26 21:35] LABS: Add Urine Microscopic? YES; Bacteria Urine None Seen /hpf; Bilirubin Urine Negative (Negative); Blood Urine Negative (Negative); Glucose Urine UA Negative (Normal); Hyaline Casts Urine 0-4 /lpf; Ketones Urine 3+ (Negative); Leukocyte Esterase Urine Negative (Negative); Nitrate Urine Negative (Negative); Protein Urine Negative (Negative); RBC Urine 0-2 /hpf (0-2); Squamous Epithelial Cell Urine 0-5 /hpf (0-5); Urine Appearance Clear (CLEAR); Urine Color Yellow (Yellow); Urobilinogen Urine 0.2 mg/dL (Negative); WBC Urine 0-5 /hpf (0-5)
--- NOTE | 2024-07-26 21:37 | ED_ITS ---
HPI - Abdominal Pain 2 General: Chief Complaint: Abdominal Pain Stated Complaint: spotting (preg unknown timeframe) Time Seen by Provider: 07/26/24 20:39 Source: patient Mode of arrival: ambulatory Limitations: no limitations History of Present Illness: Patient is a 34-year-old female who presents the emergency department complaining of lower abdominal pain for the past few days. Patient states her last normal period was in April, she has taken 3 home positive tests which have been positive. States that she did have an episode of similar pain a couple weeks ago, nothing since. States that she is dizzy when she stands up, has had some mild vaginal bleeding. Denies history of ectopic or tubo-ovarian abscess, however states that with prior pregnancies she has been preeclamptic. Also notes history of high blood pressure but does not take anything regularly. She does not report any urinary symptoms. She does not report any seizures. This is her fourth , 3 live births. She has not established with OB and states that she has only taken a home test today. She also notes feeling short of breath at this time. MD elicited complaint: abdominal pain Onset (ago): day(s) Pain Consistency: constant Location: RLQ and LLQ Severity: moderate Quality: cramping Context: other (, 3 home positive tests) Associated Symptoms: Denies bloating, change in stool character, chills, constipation, diarrhea, dysuria, fever(s), hematochezia, nausea and vomiting Related Data Date of Last Menstrual Period: 04/04/24 Previous Rx's Medication Instructions Recorded azithromycin 250 mg tablet See Rx Instructions PO .COMPLEX #6 10/21/23 tabs labetalol 200 mg tablet 200 mg PO BID #30 tabs 07/27/24 Allergies Allergy/AdvReac Type Severity Reaction Status Date / Time tramadol Allergy ALGY-Watery Verified 10/21/23 13:07 Eye Review of Systems 2 General: Reports: 10 or more systems reviewed and unremarkable except in HPI and below Const: Denies: fever(s), chills, change in appetite, change in weight or diaphoresis ENMT: Denies: throat pain or hoarseness Card: Denies: chest pain, palpitations or lightheadedness Resp: Reports: dyspnea; Denies: productive cough or wheezing GI: Reports: abdominal pain; Denies: nausea, vomiting, diarrhea, constipation, bloating, change in stool character or hematochezia : Reports: vaginal bleeding and other (); Denies: flank pain, difficulty voiding, dysuria, urinary frequency or urinary urgency Musc: Denies: neck pain or back pain Skin/Breast: Denies: rash or new lesions Neuro: Reports: dizziness; Denies: headache(s) or seizure-like activity PFSH ED 2 PFSH: Medical History Cyclical vomiting Colitis Surgical History No significant past surgical history Social History Smoking and tobacco/nicotine status: current every day tobacco/nicotine user Alcohol intake: former Substance/Drug Use: current Other substance/drug use details: +marijuana Female Reproductive History: Date of last menstrual period: 04/04/24 G ravida: 3 Para: 2 Spontaneous abortions: No Physical Exam 2 Const: COMMON NORMALS: average body habitus, patient oriented x3, no limitations, alert and well nourished GENERAL APPEARANCE: cooperative and anxious ORIENTATION/CONSCIOUSNESS: Yes awake OTHER: Mild discomfort noted HENMT: COMMON NORMALS: normocephalic, atraumatic, hearing grossly normal bilaterally, external ears normal and moist oral mucous membranes HEAD & SCALP: normocephalic and atraumatic EXTERNAL EAR: Yes external ears normal Eye: COMMON NORMALS: Equal, round and reactive pupils present, EOMs intact bilaterally, conjunctivae normal and normal visual beyer by confrontation C ONJUNCTIVA: Yes conjunctivae normal PUPIL: Yes Equal, round and reactive pupils present Neck/C-Spine: COMMON NORMALS: full ROM, supple, no meningeal signs and no JVD Resp: COMMON NORMALS: normal respiratory effort, No retractions, No use of accessory muscles and clear to auscultation bilaterally AUSCULTATION: clear to auscultation bilaterally, no crackles, no rales, no rhonchi and no wheezes Cardio: COMMON NORMALS: no JVD, regular rate, regular rhythm, S1 normal heart sound present, S2 normal heart sound present, No gallops present (Cardio), No clicks present (Cardio), No murmurs present (Cardio), No rub (Cardio) and Peripheral pulses 2+ throughout RATE: regular rate RHYTHM: regular rhythm HEART SOUNDS: S1 normal heart sound present and S2 normal heart sound present PERIPHERAL PULSES: Peripheral pulses 2+ throughout GI: COMMON NORMALS: Normal to inspection, nondistended, normoactive bowel sounds present, Soft to palpation, No hepatosplenomegaly present and no masses AUSCULTATION: Yes normoactive bowel sounds PALPATION: Yes Soft to palpation, Yes Tenderness to palpation present (GI) Details: LLQ and RLQ, No Guarding due to palpation present (GI), No Rigid due to palpation and Yes No hepatosplenomegaly present RECTAL EXAM: deferred : COMMON NORMALS: Yes no CVA tenderness BLADDER/KIDNEY EXAM: Yes no CVA tenderness Back/Pelvis: COMMON NORMALS: no CVA tenderness Extremity: COMMON NORMALS: normal to inspection and full ROM Neuro: COMMON NORMALS: patient oriented x3, moves all extremities, no focal motor deficits and no sensory deficits noted SENSORIUM/ORIENTATION: Yes alert MENINGEAL SIGNS: Yes no meningeal signs Psych: COMMON NORMALS: mental status grossly normal, cooperative and speech normal SPEECH: Yes normal speech Skin: COMMON NORMALS: no rashes or lesions noted GENERAL SKIN EXAM: no rashes or lesions noted Course 2 Consultations: Consultation #1: Spoke with Dr. Perez, [facility], to report patient's case and current findings. He recommends getting uric acid level as well as a urine creatinine protein ratio. Recommends IV labetalol at this time and that if these are normal to have patient establish with OB emergently and to start her on p.o. labetalol. Vital Signs: Vital signs: Vital Signs Temperature 98.0 F 07/26/24 17:53 Pulse Rate 69 07/27/24 01:45 Respiratory Rate 16 07/27/24 01:45 Blood Pressure 148/97 07/27/24 01:45 Pulse Oximetry 99 07/27/24 01:45 Oxygen Delivery Me thod Room Air 07/26/24 23:04 MDM - Abdominal Pain Medical Decision Making Patient presenting with sudden lower abdominal pain with some vaginal spotting. 3 home positive test were reported, was positive here in the emergency department by quantitative beta-hCG showing a level of about 60,000. Her CBC and CMP were unremarkable, patient did report a history of preeclampsia and she has been having hypertensive blood pressures here in the emergency department. Does not take anything for hypertension medication barger. Ultrasound shows viable intrauterine of 15 weeks and 2 days, marginal placenta. I had consulted Dr. Perez, on-call [facility], to relay these findings. He had recommended further preeclamptic workup of adding uric acid and urine protein creatinine ratio. Patient will be started on labetalol and urgently referred to [facility] on an outpatient basis pending normal labs. Discussed this case with Dr. Worley, who will follow patient's labs. Lab Data 07/26/24 20:25 07/26/24 20:25 Labs/Radiology: Radiology Impressions Ultrasound 07/26/24 21:26 IMPRESSION: Marginal placenta, recommend interval follow-up. Viable single intrauterine gestation as described in detail above. Laboratory Results WBC 9.72 10^3/uL (3.29-11.43) 07/26/24 20: RBC 4.36 10^6/uL (3.85-5.65) 07/26/24: Hgb 12.80 g/dL (11.27-16.99) 07/26/24 20: Hct 37.5 % (36-47) 07/26/24: MCV 86.0 fl (85-98) 07/26/24: MCH 29.4 pg (27-33) 07/26/24: MCHC 34.1 g/dL (30-55) 07/26/24 20: RDW 14.7 % (12.1-15.1) 07/26/24: Plt Count 267 10^3/cmm (157-399) 07/26/24: MPV 10.5 fL (7.4-10.4) H 07/26/24 20: Neut % (Auto) 63.2 % 07/26/24: Lymph % (Auto) 30.2 % 07/26/24: [place] % (Auto) 4.9 % 07/26/24: Eos % (Auto) 0.9 % 07/26/24: Baso % (Auto) 0.5 % 07/26/24: Neut # (Auto) 6.13 10^3/uL (1.8-7.7) 01/22/25 20:25 Lymph # (Auto) 2.9 10^3/uL (0.8-4.8) 07/26/24 20:25 [place] # (Auto) 0.5 10^3/uL (0.2-0.9) 07/26/24 20:25 Eos # (Auto) 0.1 10^3/uL (0.0-0.8) 07/26/24 20:25 Baso # (Auto) 0.1 10^3/uL (0.0-0.1) 07/26/24 20:25 Nucleated RBC % (auto) 0 % 07/26/24 20:25 Nucleated RBCs # 0.0 /100WBC 07/26/24 20:25 Sodium 136 mmol/L (136-145) 07/26/24 20: Potassium 3.6 mmol/L (3.5-5.1) 07/26/24 20: Chloride 101 mmol/L (98-107) 07/26/24 20: Carbon Dioxide 22 mmol/L (22-29) 07/26/24 20:25 Anion Gap 16.6 (5-19) 07/26/24 20:25 BUN 13 mg/dL (6-20) 07/26/24 20:25 Creatinine 0.5 mg/dL (0.5-0.9) 07/26/24 20:25 GFR Calculation 142.1 mL/min (90-130) H 07/26/24 20:25 Glucose 102 mg/dL (65-115) 07/26/24 20:25 Calculated Osmolality 282 mOsm/kg (285-295) L 07/26/24 20:25 Uric Acid 3.2 mg/dL (2.4-5.7) 07/26/24 20:25 Calcium 9.4 mg/dL (8.5-10.5) 07/26/24 20:25 Total Bilirubin 0.3 mg/dL (0.15-1.2) 07/26/24 20:25 AST 14 U/L (0-32) 07/26/24 20:25 ALT 11 U/L (0-33) 07/26/24 20:25 Alkaline Phosphatase 71 U/L (35-105) 07/26/24 20:25 Total Protein 7.4 g/dL (6.6-8.7) 07/26/24 20:25 Albumin 4.4 g/dL (3.5-5.2) 07/26/24 20: Globulin 3.0 g/dL (1.3-4.6) 07/26/24 20:25 Ser , Semi-Qnt 63259.00 mIU/mL 07/26/24 20:25 Urine Color Yellow (Yellow) 07/26/24 18:45 Urine Appearance Clear (CLEAR) 07/26/24 18:45 Urine pH 6.0 (5-7) 07/26/24 18:45 Ur Specific [place] 1.020 (1.005-1.030) 07/26/24 18:45 Urine Protein Negative (Negative) 07/26/24 18:45 Urine Glucose (UA) Negative (Normal) 07/26/24 18:45 Urine Ketones 3+ (Negative) H 07/26/24 18:45 Urine Blood Negative (Negative) 07/26/24 18:45 Urine Nitrate Negative (Negative) 07/26/24 18:45 Urine Bilirubin Negative (Negative) 07/26/24 18:45 Urine Urobilinogen 0.2 mg/dL (Negative) 07/26/24 18:45 Ur Leukocyte Esterase Negative (Negative) 07/26/24 18:45 Urine RBC 0-2 /hpf (0-2) 07/26/24 18:45 Urine WBC 0-5 /hpf (0-5) 07/26/24 18:45 Ur Squamous Epith Cells 0-5 /hpf (0-5) 07/26/24 18:45 Amorphous Sediment Not Reportable 07/26/24 18:45 Urine Bacteria None seen /hpf (NONE) 07/26/24 18:45 Hyaline Casts 0-4 /lpf H 07/26/24 18:45 Ur Random Microalbumin 1 ug/dL (0-20) 07/26/24 18:45 Urine Creatinine 68 mg/dL (28-217) 07/26/24 18:45 Microalb/Creat Ratio 15 mg/dL (0-20) 07/26/24 18:45 All radiology interpretation(s) finalized by discharge Discharge Plan Discharge Patient Disposition: Home Clinical Impression: 15 weeks gestation of Pre-eclampsia Qualifiers: Trimester: second trimester Qualified Code(s): O14.92 - Unspecified pre- eclampsia, second trimester Condition: Stable Prescriptions: New labetalol 200 mg tablet 200 mg PO BID Qty: 30 0RF No Action azithromycin 250 mg tablet See Rx Instructions PO .COMPLEX Qty: 6 0RF Rx Instructions: take 500 mg today (day 1), then 250 mg for 4 days (days 2-5) PO Discharge Orders: Discharge ED (Routine); Ordered 07/27/24 Ordered By: Modesta Worley Patient Instructions: Preeclampsia During (ED) Coding Level of Care Code ED Material Control Clerk for [place]
[2024-07-26 21:51] VITALS: BP 133/81; PULSE 76; RESP 16; O2SAT 98
[2024-07-26 23:04] VITALS: BP 148/83; PULSE 77; RESP 16; O2SAT 100
[2024-07-27 00:46] LABS: Uric Acid 3.2 mg/dL (2.4-5.7)
[2024-07-27 01:03] VITALS: BP 128/90; PULSE 75; RESP 16; O2SAT 98
[2024-07-27 01:24] LABS: Creatinine Urine, Random 68 mg/dL (28-217); Microalbum Creatinine Ratio Ur 15 mg/dL (0-20); Microalbumin Random Urine 1 ug/dL (0-20)
[2024-07-27] MEDS: labetalol 200 mg Tablet 100 MG PO (01:44)
[2024-07-27 01:45] VITALS: BP 145/97; BP 148/97; PULSE 68; PULSE 69; RESP 16; O2SAT 96; O2SAT 99
--- NOTE | 2024-07-27 07:22 | DCPLANNER ---
messaged [facility] for er f/u
== END 2024-07-27 01:45 | disposition home or self-care (01) ==
PROVIDERS: Emergency Medicine; Emergency Provider Physician Assistant
DX: O14.92 Unspecified pre-eclampsia, second trimester (principal); Z3A.15 15 weeks gestation of pregnancy; Z72.0 Tobacco use
CPT/HCPCS: 36415; 76805; 80053; 81001; 82044; 84550; 84702; 85025; 99284

== ENCOUNTER 2024-08-14 13:01 | Emergency (ER) | payer OTHER, MEDICAID, SELFPAY ==
[2024-08-14 13:27] VITALS: BP 120/80; PULSE 86; TEMP 36.6; O2SAT 99
[2024-08-14 14:33] LABS: Basophils % 0.3 %; Eosinophils # 0.1 10^3/uL (0.0-0.8); Eosinophils % 0.9 %; Hematocrit 35.5 % (36-47); Lymphocytes # 0.6 10^3/uL (0.8-4.8); Lymphocytes % 7.7 %; Mean Corpuscular Hemoglobin 28.9 pg (27-33); Mean Corpuscular Volume 87.7 fl (85-98); Monocytes # 0.5 10^3/uL (0.2-0.9); Monocytes % 6.4 %; Neutrophils % 83.9 %; Nucleated Red Blood Cells % 0 %; Platelet Count 194 10^3/cmm (157-399); Red Blood Count 4.05 10^6/uL (3.85-5.65); Red Cell Distribution Width 14.7 % (12.1-15.1); White Blood Count 7.51 10^3/uL (3.29-11.43)
[2024-08-14 14:53] LABS: Alanine Aminotransferase 12 U/L (0-33); Albumin Level 3.6 g/dL (3.5-5.2); Alkaline Phosphatase 65 U/L (35-105); Anion Gap 15.5 (5-19); Aspartate Amino Transferase 14 U/L (0-32); Blood Urea Nitrogen 9 mg/dL (6-20); Calcium 8.9 mg/dL (8.5-10.5); Carbon Dioxide 22 mmol/L (22-29); Chloride 101 mmol/L (98-107); Creatinine Clr Calc Pharmacy 186.7267; Glomerular Filtration Rate 183.8 mL/min (90-130); Glucose 110 mg/dL (65-115); Lipase 17 U/L (13-60); Osmolality Calculated 279 mOsm/kg (285-295); Potassium 3.5 mmol/L (3.5-5.1); Sodium 135 mmol/L (136-145); Total Bilirubin 0.2 mg/dL (0.15-1.2); Total Protein 6.6 g/dL (6.6-8.7)
--- NOTE | 2024-08-14 16:16 | W.ED.ABDPA2 ---
HPI - Abdominal Pain General: Chief Complaint: Abdominal Pain Stated Complaint: cramping 17 weeks preg Time Seen by Provider: 08/14/24 16:13 History of Present Illness: 34-year-old female presents emergency room complaining of pelvic pain and cramping began about 5 hours ago. Patient refers most of it to the lower left side. No dysuria urgency or frequency. No vaginal bleeding. Previously in she had a low-lying placenta. She is also had a lot of nausea vomiting and flulike symptoms. No vaginal discharge Associated Symptoms: Denies chills, dysuria and fever(s) Related Data Previous Rx's ?Medication ?Instructions ?Recorded labetalol 200 mg tablet 200 mg PO BID #30 tabs 07/27/24 promethazine 25 mg tablet 25 mg PO Q6H PRN nausea and 08/14/24 vomiting #20 tabs Allergies Allergy/AdvReac Type Severity Reaction Status Date / Time tramadol Allergy ALGY-Watery Verified 08/14/24 13:31 Eye Review of Systems Const: Denies: fever(s) or chills Card: Denies: chest pain Resp: Denies: dyspnea GI: Denies: abdominal pain : Denies: dysuria, urinary frequency or urinary urgency Musc: Denies: neck pain or back pain Skin/Breast: Denies: rash PFSH ED PFSH: Medical History Cyclical vomiting Colitis Surgical History No significant past surgical history Social History Smoking and tobacco/nicotine status: current every day tobacco/nicotine user Alcohol intake: former Substance/Drug Use: current Other substance/drug use details: +marijuana Female Reproductive History: Para: 2 Spontaneous abortions: No Physical Exam Const: COMMON NORMALS: no acute distress GENERAL APPEARANCE: cooperative and comfortable ORIENTATION/CONSCIOUSNESS: Yes awake, Yes oriented to person, Yes oriented to place and Yes oriented to time HENMT: COMMON NORMALS: normocephalic, atraumatic and hearing grossly normal bilaterally HEAD & SCALP: normocephalic and atraumatic Resp: COMMON NORMALS: normal respiratory effort, No retractions, No use of accessory muscles and clear to auscultation bilaterally AUSCULTATION: clear to auscultation bilaterally Cardio: COMMON NORMALS: regular rate, regular rhythm and No murmurs present (Cardio) RATE: regular rate RHYTHM: regular rhythm GI: COMMON NORMALS: Soft to palpation and No hepatosplenomegaly present AUSCULTATION: Yes normoactive bowel sounds PALPATION: Yes Soft to palpation, No Tenderness to palpation present (GI), No Guarding due to palpation present (GI) and Yes No hepatosplenomegaly present Extremity: COMMON NORMALS: normal to inspection, capillary refill normal, no clubbing, cyanosis or edema, no calf tenderness and no pedal edema Neuro: SENSORIUM/ORIENTATION: Yes oriented to person, Yes oriented to place and Yes oriented to time Skin: COMMON NORMALS: no rashes or lesions noted GENERAL SKIN EXAM: no rashes or lesions noted Course Vital Signs: Vital signs: Vital Signs Temperature 97.9 F 08/14/24 13:27 Pulse Rate 72 08/14/24 16:29 Blood Pressure 128/80 08/14/24 16:29 Pulse Oximetry 100 08/14/24 16:29 Oxygen Delivery Me thod Room Air 08/14/24 16:29 MDM - Abdominal Pain Medical Decision Making Ultrasound shows intrauterine previously low-lying placenta has migrated towards the fundus there is no evidence of bleeding heart tones good. Good interval growth. Will discharge patient home suspect she has a gastroenteritis promethazine as needed clear liquid diet follow-up with primary care as needed Lab Data 08/14/24 14:20 08/14/24 14:20 Labs/Radiology: Radiology Impressions Obstetrics Ultrasound 08/14/24 16:23 IMPRESSION: 1. Single, viable intrauterine gestation. Estimated gestational age of 17 weeks 5 days by the current ultrasound. Estimated delivery date by the current ultrasound is 01/17/2025. This is within 2 days of the SUMIT by the previous ultrasound. There has been interval growth of the fetus. 2. The placenta is anterior. The lower margin of the placenta has migrated cephalad and is now 3.6 cm away from the internal cervical os (series 2, image 100). 3. Incidental/nonacute findings are listed in the report. Laboratory Results WBC 7.51 10^3/uL (3.29-11.43) 08/14/24 14:20 RBC 4.05 10^6/uL (3.85-5.65) 08/14/24 14:20 Hgb 11.70 g/dL (11.27-16.99) 08/14/24 14:20 Hct 35.5 % (36-47) L 08/14/24 14:20 MCV 87.7 fl (85-98) 08/14/24 14:20 MCH 28.9 pg (27-33) 08/14/24 14:20 MCHC 33.0 g/dL (30-55) 08/14/24 14:20 RDW 14.7 % (12.1-15.1) 08/14/24 14:20 Plt Count 194 10^3/cmm (157-399) 08/14/24 14:20 MPV 11.0 fL (7.4-10.4) H 08/14/24 14:20 Neut % (Auto) 83.9 % 08/14/24 14:20 Lymph % (Auto) 7.7 % 08/14/24 14:20 [place] % (Auto) 6.4 % 08/14/24 14:20 Eos % (Auto) 0.9 % 08/14/24 14:20 Baso % (Auto) 0.3 % 08/14/24 14:20 Neut # (Auto) 6.30 10^3/uL (1.8-7.7) 08/14/24 14:20 Lymph # (Auto) 0.6 10^3/uL (0.8-4.8) L 08/14/24 14:20 [place] # (Auto) 0.5 10^3/uL (0.2-0.9) 08/14/24 14:20 Eos # (Auto) 0.1 10^3/uL (0.0-0.8) 08/14/24 14:20 Baso # (Auto) 0.0 10^3/uL (0.0-0.1) 08/14/24 14:20 Nucleated RBC % (auto) 0 % 08/14/24 14:20 Nucleated RBCs # 0.0 /100WBC 08/14/24 14:20 Sodium 135 mmol/L (136-145) L 08/14/24 14:20 Potassium 3.5 mmol/L (3.5-5.1) 08/14/24 14:20 Chloride 101 mmol/L (98-107) 08/14/24 14:20 Carbon Dioxide 22 mmol/L (22-29) 08/14/24 14:20 Anion Gap 15.5 (5-19) 08/14/24 14:20 BUN 9 mg/dL (6-20) 08/14/24 14:20 Creatinine 0.4 mg/dL (0.5-0.9) L 08/14/24 14:20 GFR Calculation 183.8 mL/min (90-130) H 08/14/24 14:20 Glucose 110 mg/dL (65-115) 08/14/24 14:20 Calculated Osmolality 279 mOsm/kg (285-295) L 08/14/24 14:20 Calcium 8.9 mg/dL (8.5-10.5) 08/14/24 14:20 Total Bilirubin 0.2 mg/dL (0.15-1.2) 08/14/24 14:20 AST 14 U/L (0-32) 08/14/24 14:20 ALT 12 U/L (0-33) 08/14/24 14:20 Alkaline Phosphatase 65 U/L (35-105) 08/14/24 14:20 Total Protein 6.6 g/dL (6.6-8.7) 08/14/24 14:20 Albumin 3.6 g/dL (3.5-5.2) 08/14/24 14:20 Globulin 3.0 g/dL (1.3-4.6) 08/14/24 14:20 Lipase 17 U/L (13-60) 08/14/24 14:20 Urine Color Yellow (Yellow) 08/14/24 16:26 Urine Appearance Cloudy (CLEAR) A 08/14/24 16:26 Urine pH 6.0 (5-7) 08/14/24 16:26 Ur Specific Doyle 1.031 (1.005-1.030) H 08/14/24 16:26 Urine Protein 1+ (Negative) A 08/14/24 16:26 Urine Glucose (UA) Negative (Normal) 08/14/24 16:26 Urine Ketones Trace (Negative) 08/14/24 16:26 Urine Blood Negative (Negative) 08/14/24 16: Urine Nitrate Negative (Negative) 08/14/24 16:26 Urine Bilirubin Negative (Negative) 08/14/24 16:26 Urine Urobilinogen 1.0 mg/dL (Negative) 08/14/24 16:26 Ur Leukocyte Esterase Negative (Negative) 08/14/24 16:26 Urine RBC 0-2 /hpf (0-2) 08/14/24 16:26 Urine WBC 0-5 /hpf (0-5) 08/14/24 16:26 Ur Squamous Epith Cells 0-5 /hpf (0-5) 08/14/24 16:26 Amorphous Sediment Not Reportable 08/14/24 16:26 Urine Bacteria Trace /hpf (NONE) 08/14/24 16:26 Hyaline Casts 4.11 /lpf 08/14/24 16:26 All radiology interpretation(s) finalized by discharge Discharge Plan Discharge Patient Disposition: Home Clinical Impression: Pelvic cramping in antepartum period, 17 weeks gestation of , Nausea & vomiting Condition: Stable Prescriptions: New promethazine 25 mg tablet 25 mg PO Q6H PRN (Reason: nausea and vomiting) Qty: 20 0RF No Action labetalol 200 mg tablet 200 mg PO BID Qty: 30 0RF Discharge Orders: Discharge ED (Routine); Ordered 08/14/24 Ordered By: Nathan Cotton Discharge Diet: Usual diet Discharge Activity: Increase activity as tolerated Patient Instructions: Opioid Safety, Pain Management Activity Restrictions/Additional Instructions: Thank you for choosing [facility] for your healthcare needs today. It is very important that you follow up as instructed or that you return to the Emergency Department should you have concerns or if your condition changes or worsens in any way. You are seen in the emergency room with complaints of abdominal pain and cramping. There is no sign of urinary tract infection ultrasound of the baby does not show any acute abnormalities your placenta has moved good position. 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
--- NOTE | 2024-08-14 16:23 | USR_ITS ---
PROCEDURE INFORMATION: Exam: US , Limited Exam date and time: 08/14/2024 4:54 PM Age: 34 years old Clinical indication: Screening exam; Routine US, uterus; Additional info: Pelvic cramping, marginal placenta, wellbeing LABS AND CLINICAL REPORTS: Gestational age (Established): 18 w 0 d Estimated due date (Established): 01/15/2025 TECHNIQUE: Imaging protocol: Real-time ultrasound of the maternal uterus with image documentation. Exam focused on the clinical indication. COMPARISON: US pelvic complete* [id number] 07/26/2024 10:56 PM FINDINGS: Gestation: Single, viable intrauterine gestation. heart rate: 142 bpm Placenta: The placenta is anterior. The lower margin of the placenta has migrated cephalad and is now 3.6 cm away from the internal cervical os (series 2, image 100). No evidence for placental abruption. Amniotic fluid index: ANDRÉS is 11.24 cm using the 4 quadrant method. BIOMETRY: Estimated weight: 203.24 g. EFW by AC, BPD, FL, HC, [place] 1985 24.3 percentile. Biparietal diameter (BPD): 3.9 cm. EGA (BPD) is 17 w 6 d. 44.2 percentile Head circumference (HC): 14.73 cm. EGA (HC) is 17 w 6 d. 35 percentile Abdominal circumference (AC): 12.22 cm. EGA (AC) is 17 w 6 d. 43.3 percentile Femur length (FL): 2.42 cm. EGA (FL) is 17 w 2 d. 19.8 percentile HC/AC: 1.21. (Normal range: 1.08 - 1.28) FL/HC: 16.43. (Normal range: 15.46 - 17.89) FL/BPD: 62.05 FL/AC: 19.8 MATERNAL: Uterus: Incidental note of a contraction in the anterior myometrium during the study. Cervix: Cervical length measures 3.5 cm. The cervix is unremarkable. There is no shortening or effacement. The cervix measures 3.8 cm using a transabdominal measurement (series 2, image 100). US/US OB limited [id number] IMPRESSION: 1. Single, viable intrauterine gestation. Estimated gestational age of 17 weeks 5 days by the current ultrasound. Estimated delivery date by the current ultrasound is 01/17/2025. This is within 2 days of the SUMIT by the previous ultrasound. There has been interval growth of the fetus. 2. The placenta is anterior. The lower margin of the placenta has migrated cephalad and is now 3.6 cm away from the internal cervical os (series 2, image 100). 3. Incidental/nonacute findings are listed in the report.
[2024-08-14 16:29] VITALS: BP 128/80; PULSE 72; O2SAT 100
[2024-08-14 16:43] LABS: Bilirubin Urine Negative (Negative); Blood Urine Negative (Negative); Glucose Urine UA Negative (Normal); Ketones Urine Trace (Negative); Leukocyte Esterase Urine Negative (Negative); Nitrate Urine Negative (Negative); Protein Urine 1+ (Negative); Urine Appearance Cloudy (CLEAR); Urine Color Yellow (Yellow)
[2024-08-14 16:48] LABS: Add Urine Microscopic? YES; Bacteria Urine Trace /hpf; Hyaline Casts Urine 4.11 /lpf; RBC Urine 0-2 /hpf (0-2); Squamous Epithelial Cell Urine 0-5 /hpf (0-5); WBC Urine 0-5 /hpf (0-5)
[2024-08-14 16:49] LABS: Specific Gravity, Urine 1.031 (1.005-1.030)
[2024-08-14 17:59] VITALS: BP 130/85; PULSE 82; O2SAT 98
[2024-08-14 18:31] LABS: Covid PCR NEGATIVE (Negative); Influenza A POSITIVE (Negative); Influenza B NEGATIVE (Negative); Respiratory Syncytial Virus Ce NEGATIVE (Negative)
== END 2024-08-14 18:00 | disposition home or self-care (01) ==
PROVIDERS: Emergency Medicine; Emergency Provider Family Medicine
DX: O26.892 Other specified pregnancy related conditions, second trimester (principal); Z3A.17 17 weeks gestation of pregnancy; O21.9 Vomiting of pregnancy, unspecified; Z72.0 Tobacco use
CPT/HCPCS: 36415; 76815; 80053; 81001; 83690; 85025; 87637; 99284

== ENCOUNTER 2024-11-13 14:00 | Outpatient (CLI) | payer OTHER, SELFPAY ==
[2024-11-13 14:16] VITALS: BP 118/61; PULSE 81
[2024-11-13 14:20] VITALS: BMI 30.7
[2024-11-13 14:31] VITALS: BP 121/59; PULSE 79
[2024-11-13 14:46] VITALS: BP 132/63; PULSE 78
== END 2024-11-13 15:01 | disposition home or self-care (01) ==
LOC: OPOB 14:07 → OBGYN 14:08
PROVIDERS: Visit Provider Family Medicine
DX: O13.9 Gestational [pregnancy-induced] hypertension without significant proteinuria, unspecified trimester (principal); Z3A.00 Weeks of gestation of pregnancy not specified
CPT/HCPCS: 59025

== ENCOUNTER 2024-11-28 14:25 | Outpatient (CLI) | payer OTHER, SELFPAY ==
[2024-11-28 14:26] VITALS: BMI 30.9
[2024-11-28 14:35] VITALS: BP 134/73; PULSE 83
[2024-11-28 14:54] VITALS: BP 117/71; PULSE 82
[2024-11-28 15:03] VITALS: BP 117/71; PULSE 82; RESP 17; O2SAT 98
== END 2024-11-28 15:03 | disposition home or self-care (01) ==
LOC: OPOB 14:29 → OBGYN 14:30
PROVIDERS: Visit Provider Family Medicine
DX: O13.9 Gestational [pregnancy-induced] hypertension without significant proteinuria, unspecified trimester (principal); Z3A.00 Weeks of gestation of pregnancy not specified
CPT/HCPCS: 59025; 99211

== ENCOUNTER 2024-12-04 09:19 | Outpatient (CLI) | payer OTHER, SELFPAY ==
[2024-12-04 09:19] VITALS: RESP 16; BMI 30.1
[2024-12-04 09:23] VITALS: BP 133/81; PULSE 91
[2024-12-04 09:38] VITALS: BP 124/80; PULSE 123
== END 2024-12-04 09:50 | disposition home or self-care (01) ==
LOC: OPOB 09:20 → OBGYN 09:20
PROVIDERS: Visit Provider Family Medicine
DX: O13.9 Gestational [pregnancy-induced] hypertension without significant proteinuria, unspecified trimester (principal); O36.5990 Maternal care for other known or suspected poor fetal growth, unspecified trimester, not applicable or unspecified; Z3A.00 Weeks of gestation of pregnancy not specified
CPT/HCPCS: 59025

== ENCOUNTER 2024-12-14 09:54 | Outpatient (CLI) | payer OTHER, SELFPAY ==
[2024-12-14 10:05] VITALS: BP 130/86; PULSE 80
[2024-12-14 10:25] VITALS: BP 123/84; PULSE 88
[2024-12-14 10:45] VITALS: BP 147/86; PULSE 80
== END 2024-12-14 10:57 | disposition home or self-care (01) ==
LOC: OPOB 09:59 → OBGYN 10:02
PROVIDERS: Visit Provider Family Medicine
DX: O16.9 Unspecified maternal hypertension, unspecified trimester (principal); Z3A.00 Weeks of gestation of pregnancy not specified
CPT/HCPCS: 59025

== ENCOUNTER 2024-12-18 15:21 | Outpatient (CLI) | payer OTHER, SELFPAY ==
[2024-12-18 15:21] VITALS: BMI 31.4
[2024-12-18 15:32] VITALS: BP 127/73; PULSE 88
[2024-12-18 15:53] VITALS: BP 124/67; PULSE 85
== END 2024-12-18 16:00 | disposition home or self-care (01) ==
LOC: OPOB 15:24 → OBGYN 15:25
PROVIDERS: Visit Provider Family Medicine
DX: O13.9 Gestational [pregnancy-induced] hypertension without significant proteinuria, unspecified trimester (principal); Z3A.00 Weeks of gestation of pregnancy not specified
CPT/HCPCS: 59025

== ENCOUNTER 2024-12-29 08:00 | Inpatient (IN) | payer OTHER, SELFPAY ==
[2024-12-29] VITALS (47 sets, daily range): BP systolic 98–159; BP diastolic 53–88; PULSE 63–94; RESP 16–17; TEMP 35.8–36.9; BMI 31.7
[2024-12-29 08:43] LABS: Basophils # 0.1 10^3/uL (0.0-0.1); Basophils % 0.5 %; Eosinophils # 0.2 10^3/uL (0.0-0.8); Lymphocytes # 1.6 10^3/uL (0.8-4.8); Lymphocytes % 15.9 %; Mean Corpuscular HGB Conc 32.7 g/dL (30-55); Mean Corpuscular Hemoglobin 28.3 pg (27-33); Mean Corpuscular Volume 86.7 fl (85-98); Mean Platelet Volume 11.9 fL (7.4-10.4); Monocytes # 0.5 10^3/uL (0.2-0.9); Monocytes % 5.2 %; Neutrophils # 7.69 10^3/uL (1.8-7.7); Neutrophils % 74.7 %; Nucleated Red Blood Cells % 0 %; Platelet Count 179 10^3/cmm (157-399); Red Blood Count 3.46 10^6/uL (3.85-5.65); Red Cell Distribution Width 13.6 % (12.1-15.1)
[2024-12-29] MEDS: dextrose 5%-lactated ringers 1,000 ML 125 ML IV (08:44)
[2024-12-29] MEDS: ampicillin 2,000 MG in sodium chloride 0.9% (plus) 50 ML 100 MG IV (08:45)
[2024-12-29] MEDS: miSOPROStol 100 mcg tablet 25 MCG VAGINAL (08:47)
[2024-12-29 09:07] LABS: Amphetamines Screen Urine Negative (Negative); Barbiturates Screen Urine Negative (Negative); Benzodiazepines Screen Urine Negative (Negative); Cocaine Screen Urine Negative (Negative); Opiate Screen Urine Negative (Negative); PCP Screen Urine Negative (Negative); THC Screen Urine Positive (Negative)
[2024-12-29] MEDS: ampicillin 1,000 MG in sodium chloride 0.9% (plus) 50 ML 100 MG IV ×2 (12:36→16:28)
--- NOTE | 2024-12-29 12:49 | PM.OBGYHP ---
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 Patient's blood pressure has been doing fairly well with labetalol 200 mg twice daily throughout her . The patient has seen MFM. The patient had some concerns with small for gestational age and concerns for IUGR. Patient has had NSTs the latter half of her that were all reassuring. Patient is GBS positive. Present Details : 4 Para: 3 Labs Rubella: Equivocal RPR: Negative GBS: Positive L&D/Induction Specific History Indication for induction OB: medical complication (Chronic hypertension) Review of Systems Const: Denies: fever(s) or chills Card: Denies: chest pain Resp: Denies: dyspnea GI: Denies: abdominal pain : Denies: dysuria, urinary frequency or urinary urgency Musc: Denies: neck pain or back pain Skin/Breast: Denies: rash Medications/Allergies Home Medications ?Medication ?Instructions ?Recorded ?Confirmed ?Last Taken ?Type labetalol 200 mg tablet 200 mg PO BID #30 tabs 07/27/24 12/29/24 12/29/24 05:30 Rx [id number] 400 mcg-om3 35 mg-dha 25 1 tab PO DAILY 12/29/24 12/29/24 12/29/24 05:30 History mg-epa 5 mg-fish oil chewable tablet Allergies Allergy/AdvReac Type Severity Reaction Status Date / Time tramadol Allergy ALGY-Watery Verified 08/14/24 13:31 Eye PFSH [employer] PFSH: Medical History Cyclical vomiting Colitis Surgical History No significant past surgical history Social History Smoking and tobacco/nicotine status: current every day tobacco/nicotine user Alcohol intake: former Substance/Drug Use: current Other substance/drug use details: +marijuana Vitals/I&O/Wt Last Vital Signs Temp 96.4 F L 12/29/24 10:31 Pulse 67 06/27/25 11:01 Resp 16 12/29/24 10:31 BP 98/53 12/29/24 11:01 O2 Del Method Room Air 12/29/24 09:16 12/28/24 12/29/24 12/29/24 22:59 06:59 14:59 Intake Total 145.833 / 145.833 Balance 145.833 / 145.833 Weight last 48 hrs Weight 83.915 kg Physical Exam Const: COMMON NORMALS: no acute distress, average body habitus and patient oriented x3 Resp: COMMON NORMALS: normal respiratory effort and No retractions GI: OTHER: Gravid uterus Back/Pelvis: COMMON NORMALS: no CVA tenderness Extremity: COMMON NORMALS: no clubbing, cyanosis or edema Neuro: COMMON NORMALS: patient oriented x3, moves all extremities, no focal motor deficits and no sensory deficits noted Psych: COMMON NORMALS: cooperative Skin: COMMON NORMALS: no rashes or lesions noted Data 12/29/24 08:35 Results Labs OB ([facility]): Obstetrics 08/14/24 Blood Type O Positive Today Antibody Screen Negative Today Hct, (36-47) 30.0 % L Today Hgb, (11.27-16.99) 9.80 g/dL L Today Rho(D) Type Rh positive Today Plt Count, (157-399) 179 10^3/cmm Today Uric Acid, (2.4-5.7) 3.2 mg/dL 07/26/24 Ser , Semi-Qnt 01517.00 mIU/mL 07/26/24 Urine Opiates Screen, (Negative) Negative ng/mL Today Ur Barbiturates Screen, (Negative) Negative ng/mL Today Ur Phencyclidine Scrn, (Negative) Negative ng/mL Today Ur Amphetamines Screen, (Negative) Negative ng/mL Today U Benzodiazepines Scrn, (Negative) Negative ng/mL Today Urine Cocaine Screen, (Negative) Negative ng/mL Today U Marijuana (THC) Screen, (Negative) Positive ng/mL H Today A&P Assessment and plan (1) Chronic hypertension affecting : (2) 38 weeks gestation of : Recommend that we do early induction given size concerns, and chronic hypertension controlled with medications. Patient was started with Cytotec and has had a few contractions but has not made significant change. Patient was transient membranes were performed with clear fluid. 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 Continue antibiotics for GBS positive status. PDMP PDMP Reviewed: Not Reviewed Attestations Medical Necessity Statement*: Admitted for induction of labor. Anticipate 2 midnight stays. Coding Level of Care Code Acute Code for Chg Fwd Diagnoses Chronic hypertension affecting O10.919 38 weeks gestation of Z3A.38
[2024-12-29] MEDS: lactated ringers 1,000 ML 999 ML IV ×2 (16:11→17:06)
[2024-12-29] MEDS: fentaNYL 50 mcg/mL INJ 2mL IVP (16:11)
[2024-12-29] MEDS: ROPivacaine syringe 100 MG/50 ML SYRINGE 10 MG EPIDURAL (17:06)
--- NOTE | 2024-12-29 17:06 | ANES.PREANE2 ---
Pre-Anesthetic Assessment Height/Weight: Height 1.63 m Weight 83.915 kg Temp Pulse Resp BP O2 Del Method 96.4 F L 63 17 154/83 Room Air 12/29/24 16:16 12/29/24 17:02 12/29/24 16:11 12/29/24 17:02 12/29/24 09:16 Preop Diagnosis: labor pain epidural Familial anesthetic complications: none Was Beta Taryn taken within 24 hours: Yes Was Clonidine taken within 24 hours: N/A Last Intake: 12:00 Social No alcohol and No tobacco Exam alert and oriented x 3 Airway Submandibular: within normal limits Cervical ROM: within normal limits Mallampati: Class II Dentition: full CV/HEM Hypertension Anesthetic Plan ASA status: 2 Anesthesia: Anesthesia Evaluation and Regional (specify below) Risk of > 500 ml blood loss (7ml/kg in children): Yes, adequate IV access and fluids planned Medications/Allergies Home Medications ?Medication ?Instructions ?Recorded ?Confirmed ?Last Taken ?Type labetalol 200 mg tablet 200 mg PO BID #30 tabs 07/27/24 12/29/24 12/29/24 05:30 Rx [id number] 400 mcg-om3 35 mg-dha 25 1 tab PO DAILY 12/29/24 12/29/24 12/29/24 05:30 History mg-epa 5 mg-fish oil chewable tablet Allergies Allergy/AdvReac Type Severity Reaction Status Date / Time tramadol Allergy ALGY-Watery Verified 08/14/24 13:31 Eye Current Medications Generic Name Dose Route Start Last Admin Trade Name Freq PRN Reason Stop Dose Admin Fentanyl 25 - 100 mcg 12/29/24 08:26 12/29/24 16:11 Fentanyl 50 Mcg/Ml Inj 2ml IVP 25 mcg Q1H PRN Administration SEVERE PAIN Dextrose/Lactated Ringer's 1,000 mls @ 125 mls/hr 12/29/24 08:30 12/29/24 13:18 Dextrose 5%-Lactated Ringers IV 0 mls/hr .Q8H BEATRIZ Infusion Ampicillin Sodium 1,000 mg/ 50 mls @ 100 mls/hr 12/29/24 12:30 12/29/24 16:28 Sodium Chloride IV 100 mls/hr Q4H BEATRIZ Administration Protocol Lactated Ringer's 1,000 mls @ 999 mls/hr 12/29/24 10:35 12/29/24 16:11 Lactated Ringers IV 999 mls/hr .Q1H1M PRN Administration See label comments PFSH Anesthesia Medical History Cyclical vomiting Colitis Surgical History No significant past surgical history Social History Smoking and tobacco/nicotine status: current every day tobacco/nicotine user Alcohol intake: former Substance/Drug Use: current Other substance/drug use details: +marijuana Female Reproductive History : 4 Para: 2 Spontaneous abortions: No Data Anesthesia 12/29/24 08:35 Short CBC 12/29/24 Range/Units 08:35 WBC 10.30 (3.29-11.43) 10^3/uL Hgb 9.80 L (11.27-16.99) g/dL Hct 30.0 L (36-47) % MCV 86.7 (85-98) fl Plt Count 179 (157-399) 10^3/cmm Neut % (Auto) 74.7 % Neut # (Auto) 7.69 (1.8-7.7) 10^3/uL Blood Bank 12/29/24 08:35 Blood Type O Positive Rho(D) Type Rh positive Antibody Screen Negative
--- NOTE | 2024-12-29 17:07 | ANES.PROC ---
Anesthesia Procedures Procedure/Date: 12/29/24 Epidural: Time Out Performed: Yes Consents Signed: Procedure Consent Consent: from patient, risks and benefits reviewed and patient agrees to proceed Lumbar Level: L3-L4 Epidural position: sitting Epidural procedure: sterile prep of area, 1% lidocaine to numb the area, 18 g needle, negative for paresthesia passed, test dose given, 1.5% xylocaine 1:200k epi, placed PCEA, no systemic response, sterile dressing applied, L.U.D. no apparent complications and 0.2% Ropiavacaine @ mls/hr (10) Additional Comments: AXEL at 4, negative heme/CSF with aspiration, taped at 11 at skin. tolerated well.
[2024-12-29] MEDS: ondansetron 2 mg/ML SDV 2 mL 4 MG IVP (18:36)
[2024-12-29] MEDS: oxytocin 30 UNIT/500 ML BAG IV (19:10)
--- NOTE | 2024-12-29 20:20 | PM.DELIVERY ---
Delivery Note: Date of delivery: December 29, 2024 Pre-delivery diagnoses: Chronic hypertension, term intrauterine Post-delivery diagnoses: Same, viable male Procedure: Spontaneous vaginal delivery Op report anesthesia: Epidural Delivering Physician: Hakan Brown MD Estimated blood loss (mL): 200 Pre-Delivery Course: This is a 34-year-old G4, P4 that presented at 38 weeks 1 day for induction of labor due to chronic hypertension. The patient was initially started on Cytotec and then had artificial rupture membranes which started dilation. Patient's not progressed as expected so small amount Pitocin was given which then completed her labor. Delivery: Once patient was completely dilated the patient was placed into the normal lithotomy position. The patient pushed with the first contraction and delivered a viable male without difficulty. There was nuchal cord x 1 that was delivered through. was placed onto mother's abdomen. After delay of 5 minutes the cord was clamped and cut. Cord blood was obtained. [place] was then soon delivered. Review of the perineum did not show any significant tear. At the end of the procedure the uterus was firm and bleeding was controlled. Post-Delivery Status: Stable A&P Assessment and plan (1) Normal spontaneous vaginal delivery: Proceed with routine care (2) Chronic hypertension affecting : PDMP PDMP Reviewed: Not Reviewed Coding Level of Care Code Acute Code for Chg Fwd Diagnoses Normal spontaneous vaginal delivery O80 Chronic hypertension affecting O10.919
[2024-12-30 01:11] VITALS: BP 144/81; PULSE 80; TEMP 36.7
[2024-12-30 02:00] VITALS: BP 138/66; PULSE 73; RESP 16; TEMP 36.6
[2024-12-30] MEDS: HYDROcodone-acetaminophen 5-325 mg Tablet PO ×2 (03:48→09:49)
[2024-12-30 03:54] VITALS: BP 128/84; PULSE 69; RESP 17
[2024-12-30 08:43] LABS: Hematocrit 31.5 % (36-47); Mean Corpuscular Hemoglobin 29.1 pg (27-33); Mean Platelet Volume 11.9 fL (7.4-10.4); Platelet Count 166 10^3/cmm (157-399); Red Blood Count 3.58 10^6/uL (3.85-5.65); Red Cell Distribution Width 13.6 % (12.1-15.1); White Blood Count 11.01 10^3/uL (3.29-11.43)
[2024-12-30] MEDS: ibuprofen 800 mg tablet PO ×3 (09:45→20:08)
[2024-12-30] MEDS: docusate sodium 100 mg Capsule PO ×2 (09:46→20:08)
[2024-12-30] MEDS: labetalol 200 mg Tablet 100 MG PO (09:46)
[2024-12-30] MEDS: PRENATAL VIT NO.130/IRON/FOLIC 1 EACH TABLET PO (09:46)
[2024-12-30 09:50] VITALS: BP 152/81; PULSE 72; TEMP 36.6
--- NOTE | 2024-12-30 10:03 | PM.OBGYPN ---
AUTOMATION SPECIALIST Subjective Subjective: Interval history: This is a 34-year-old G4, P4 that is status post 1 day vaginal delivery. Patient denies any concerns. Pressure has remained controlled on current medications. Patient is up ambulating and urinating without difficulty. Labor: Station: 0 Amniotic Membrane Status: Ruptured Monitor Mode: Palpation Contraction Pattern: Regular Status: Category II Post /CS: Patient comments OB post-: no complaints and pain well controlled [place] baby status: doing well and nursing well [place] feeding status: exclusively breast feeding Vitals/I&O/Wt Last Vital Signs Temp 97.8 F 12/30/24 02:00 Pulse 69 12/30/24 03:54 Resp 17 12/30/24 03:54 BP 128/84 12/30/24 03:54 O2 Del Method Room Air 12/29/24 09:16 12/29/24 12/30/24 12/30/24 22:59 06:59 14:59 Intake Total 2681.850 / 2961.016 Balance 2681.850 / 2961.016 Weight last 48 hrs Weight 83.915 kg Physical Exam Const: COMMON NORMALS: no acute distress, average body habitus and patient oriented x3 Resp: COMMON NORMALS: normal respiratory effort and No retractions GI: OTHER: Uterus firm and below umbilicus : COMMON NORMALS: Yes no CVA tenderness BLADDER/KIDNEY EXAM: Yes no CVA tenderness Back/Pelvis: COMMON NORMALS: no CVA tenderness Extremity: COMMON NORMALS: no clubbing, cyanosis or edema Neuro: COMMON NORMALS: patient oriented x3, moves all extremities, no focal motor deficits and no sensory deficits noted Psych: COMMON NORMALS: cooperative Skin: COMMON NORMALS: no rashes or lesions noted GENERAL SKIN EXAM: no rashes or lesions noted Urinary Catheter Management: Olivares Latex: Cath Placed During This Visit: yes, but has since been removed by the nurse Reason for Continuing Indwelling Catheter: Decision to DC Catheter Urinary Catheter Date of Insertion: 12/29/24 Urinary Catheter Time of Insertion: 17:45 Date Urinary Catheter Removed: 12/29/24 Time Urinary Catheter Discontinued: 20:03 Data 12/30/24 07:59 A&P Assessment and plan (1) Normal spontaneous vaginal delivery: Continue with routine care (2) Chronic hypertension affecting : Continue labetalol PDMP PDMP Reviewed: Not Reviewed Attestations Medical Necessity Statement*: Patient admitted for induction of labor. Likely discharge tomorrow. Coding Level of Care Code Acute Code for Chg Fwd Diagnoses Normal spontaneous vaginal delivery O80 Chronic hypertension affecting O10.919
--- NOTE | 2024-12-30 11:53 | PC.NURSE ---
DFS in room at this time.
--- NOTE | 2024-12-30 12:49 | ANE.PACU2 ---
Inpatient post-anesthesia follow up: Airway intact: Yes Vital signs: Temperature 98.0 F Pulse Rate 75 Respiratory Rate 18 Blood Pressure 150/81 Pulse Oximetry 98 Oxygen Delivery Me thod Room Air Oxygen Flow Rate Fraction of Inspir ed Oxygen Hydration adequate: Yes Nausea and vomiting: No Pain level: 2 Mental status: Baseline Epidural Start/End: Epidural Start Date: 12/29/24 Epidural Start Time: 16:48 Epidural End Date: 12/29/24 Epidural End Time: 17:58
[2024-12-30 18:00] VITALS: BP 123/76; PULSE 74; TEMP 36.7
[2024-12-30 20:00] VITALS: BP 107/61; PULSE 66; RESP 18; TEMP 36.6
[2024-12-31] MEDS: HYDROcodone-acetaminophen 5-325 mg Tablet PO (01:27)
[2024-12-31 03:46] VITALS: BP 144/93; PULSE 71; RESP 18; TEMP 36.7
--- NOTE | 2024-12-31 09:23 | PM.OBGYDC ---
Discharge Providers DIRECTOR VOICE Date of Admission: 12/29/24 08:00 Date of Discharge: 12/31/24 Attending Provider at Admission: Bismark Brown MD Attending Provider at Discharge: Bismark Brown MD Diagnoses at Discharge Discharge Diagnosis (1) Normal spontaneous vaginal delivery: Status: Acute (2) Chronic hypertension affecting : Status: Acute Reason for Visit Reason for Visit: IOL Hospital Course Hospital Course This is a 34-year-old that presented at 38 weeks 1 day for induction of labor due to chronic hypertension. Patient underwent induction successfully without difficulty. Gave vaginally to a viable infant male without significant complication. Patient has had no complications. Pressure has been relatively controlled on continued labetalol. Information Peripartum Data: Infant Delivery Method: Vaginal Laceration description: None Episiotomy description: None complications: none Physical Exam Const: COMMON NORMALS: no acute distress, average body habitus and patient oriented x3 Resp: COMMON NORMALS: normal respiratory effort and No retractions GI: OTHER: Uterus firm and below umbilicus : COMMON NORMALS: Yes no CVA tenderness BLADDER/KIDNEY EXAM: Yes no CVA tenderness Back/Pelvis: COMMON NORMALS: no CVA tenderness Extremity: COMMON NORMALS: no clubbing, cyanosis or edema Neuro: COMMON NORMALS: patient oriented x3, moves all extremities, no focal motor deficits and no sensory deficits noted Psych: COMMON NORMALS: cooperative Skin: COMMON NORMALS: no rashes or lesions noted GENERAL SKIN EXAM: no rashes or lesions noted Urinary Catheter Management: Olivares Latex: Cath Placed During This Visit: yes, but has since been removed by the nurse Reason for Continuing Indwelling Catheter: Decision to DC Catheter Urinary Catheter Date of Insertion: 12/29/24 Urinary Catheter Time of Insertion: 17:45 Date Urinary Catheter Removed: 12/29/24 Time Urinary Catheter Discontinued: 20:03 Discharge Data Studies Completed and Pending Laboratory Results WBC 11.01 10^3/uL (3.29-11.43) 12/30/24 07:59 RBC 3.58 10^6/uL (3.85-5.65) L 12/30/24 07:59 Hgb 10.40 g/dL (11.27-16.99) L 12/30/24 07:59 Hct 31.5 % (36-47) L 12/30/24 07:59 MCV 88.0 fl (85-98) 12/30/24 07:59 MCH 29.1 pg (27-33) 12/30/24 07:59 MCHC 33.0 g/dL (30-55) 12/30/24 07:59 RDW 13.6 % (12.1-15.1) 12/30/24 07:59 Plt Count 166 10^3/cmm (157-399) 12/30/24 07:59 MPV 11.9 fL (7.4-10.4) H 12/30/24 07:59 Neut % (Auto) 74.7 % 12/29/24 08:35 Lymph % (Auto) 15.9 % 12/29/24 08:35 [place] % (Auto) 5.2 % 12/29/24 08:35 Eos % (Auto) 2.0 % 12/29/24 08:35 Baso % (Auto) 0.5 % 12/29/24 08:35 Neut # (Auto) 7.69 10^3/uL (1.8-7.7) 12/29/24 08:35 Lymph # (Auto) 1.6 10^3/uL (0.8-4.8) 12/29/24 08:35 [place] # (Auto) 0.5 10^3/uL (0.2-0.9) 12/29/24 08:35 Eos # (Auto) 0.2 10^3/uL (0.0-0.8) 12/29/24 08:35 Baso # (Auto) 0.1 10^3/uL (0.0-0.1) 12/29/24 08:35 Nucleated RBC % (auto) 0 % 12/29/24 08:35 Nucleated RBCs # 0.0 /100WBC 12/29/24 08:35 Urine Opiates Screen Negative ng/mL (Negative) 12/29/24 08:50 Ur Barbiturates Screen Negative ng/mL (Negative) 12/29/24 08:50 Ur Phencyclidine Scrn Negative ng/mL (Negative) 12/29/24 08:50 Ur Amphetamines Screen Negative ng/mL (Negative) 12/29/24 08:50 U Benzodiazepines Scrn Negative ng/mL (Negative) 12/29/24 08:50 Urine Cocaine Screen Negative ng/mL (Negative) 12/29/24 08:50 U Marijuana (THC) Screen Positive ng/mL (Negative) H 12/29/24 08:50 Blood Type O Positive 12/29/24 08:35 Rho(D) Type Rh positive 12/29/24 08:35 Antibody Screen Negative 12/29/24 08:35 Vitals Last Vital Signs Temp 98.1 F 12/31/24 03:46 Pulse 71 12/31/24 03:46 Resp 18 12/31/24 03:46 BP 144/93 12/31/24 03:46 O2 Del Method Room Air 12/30/24 18:00 Results Labs OB ([facility]): Obstetrics US 08/14/24 Blood Type O Positive 12/29/24 Antibody Screen Negative 12/29/24 Hct, (36-47) 31.5 % L 12/30/24 Hgb, (11.27-16.99) 10.40 g/dL L 12/30/24 Rho(D) Type Rh positive 12/29/24 Plt Count, (157-399) 166 10^3/cmm 12/30/24 Uric Acid, (2.4-5.7) 3.2 mg/dL 07/26/24 Ser , Semi-Qnt 29246.00 mIU/mL 07/26/24 Urine Opiates Screen, (Negative) Negative ng/mL 12/29/24 Ur Barbiturates Screen, (Negative) Negative ng/mL 12/29/24 Ur Phencyclidine Scrn, (Negative) Negative ng/mL 12/29/24 Ur Amphetamines Screen, (Negative) Negative ng/mL 12/29/24 U Benzodiazepines Scrn, (Negative) Negative ng/mL 12/29/24 Urine Cocaine Screen, (Negative) Negative ng/mL 12/29/24 U Marijuana (THC) Screen, (Negative) Positive ng/mL H 12/29/24 Discharge Plan Discharge Patient Disposition: Home Condition: Stable Prescriptions: New labetalol 200 mg Tablet 100 mg PO BID 90 Days Qty: 45 0RF Continued [id number] oil 400 mcg-35 mg -25 mg-5 mg Tablet,Chewable 1 tab PO DAILY Discontinued labetalol 200 mg tablet 200 mg PO BID Qty: 30 0RF Discharge Orders: Discharge Order (Routine); Ordered 12/31/24 Ordered By: Bismark Brown Referrals: Bismark Brown MD [Physician, Family Practice] - 6 Weeks Discharge Diet: Usual diet Discharge Activity: Limit activity as instructed Patient Instructions: Opioid Safety, Patient Portal & [place]arian Instructions Discharge Attestations DIRECTOR VOICE Time Spent in Discharge Care*: less than 30 min Status at Discharge: Cognitive status at discharge: cognitively intact, Behavioral status at discharge: cooperative, Coding Level of Care Code Acute Code for Chg Fwd Diagnoses Normal spontaneous vaginal delivery O80 Chronic hypertension affecting O10.919
[2024-12-31] MEDS: labetalol 200 mg Tablet 100 MG PO (09:42)
[2024-12-31] MEDS: docusate sodium 100 mg Capsule PO (09:42)
[2024-12-31] MEDS: PRENATAL VIT NO.130/IRON/FOLIC 1 EACH TABLET PO (09:42)
[2024-12-31] MEDS: ibuprofen 800 mg tablet PO (09:42)
[2024-12-31 12:01] VITALS: BP 150/81; PULSE 75; TEMP 36.7
[2024-12-31 12:23] VITALS: BP 150/81; PULSE 75; TEMP 36.7; O2SAT 98
[2024-12-31] MEDS: measles,mumps,rubella pf Vial (w/diluent) 0.5 ML SUBCUT (12:34)
== END 2024-12-31 12:46 | disposition home or self-care (01) | DRG 807 ==
LOC: OBGYN 08:16
PROVIDERS: Admitting Provider Family Medicine; Visit Provider Family Medicine
DX: O10.02 Pre-existing essential hypertension complicating childbirth (principal); Z37.0 Single live birth; O36.5930 Maternal care for other known or suspected poor fetal growth, third trimester, not applicable or unspecified; O99.824 Streptococcus B carrier state complicating childbirth; O99.334 Smoking (tobacco) complicating childbirth; F17.210 Nicotine dependence, cigarettes, uncomplicated; O69.81X0 Labor and delivery complicated by cord around neck, without compression, not applicable or unspecified; Z3A.38 38 weeks gestation of pregnancy
CPT/HCPCS: 36415; 51702; 59025; 59409; 80306; 85025; 85027; 86850; 86900; 90707; 96372; J0290; J2405; J2590; J2795; J3010; J7120; J7121; J9999